=== PATIENT | female | born 1950 | race Caucasian/White ===

== ENCOUNTER 2017-12-24 16:05 | Inpatient (IN) ==
[2017-12-24] MEDS ORDERED: Sod Chloride 0.9% Inj 1,000 ML IV.SIG ONE (16:21)
--- NOTE | 2017-12-24 16:32 | ED ---
HPI General Chief complaint: Nausea/Vomiting/Diarrhea Stated complaint: dehydrated Time Seen by Provider: 12/24/17 16:12 History of Present Illness HPI narrative: This is a 67-year-old female who presents for evaluation of weakness, nausea, diarrhea, abdominal pain. Symptoms started 6 days ago. She reports that she has had approximately 10 loose watery nonbloody stools on a daily basis. She reports generalized mild abdominal soreness as well as nausea as well. Her symptoms persisted. She discussed with her primary care physician today who referred her to the emergency room. Symptoms are moderate. She denies any recent travel, new medications, change in diet, recent antibiotic use, fevers, chills, vomiting, dysuria, flank pain. No history of abdominal surgery in the past. No sick contacts. No other complaints at this time. Related Data Home Medications Medication Instructions Recorded Confirmed No Known Home Medications 12/24/17 12/24/17 Allergies Allergy/AdvReac Type Severity Reaction Status Date / Time morphine Allergy Intermediate Rash Verified 12/24/17 16:31 Review of Systems ROS: all other systems reviewed are negative [facility] Medical History Medical History Alopecia (Acute) Lupus (Acute) Social History Social History Substance History: No History of Abuse Second Hand Smoke Exposure: No Smoking Status: Never smoker How Often Do You Have a Drink Containing Alcohol: Never Recent Travel in [facility] within the Last 8 Weeks: No Recent Out of Country Travel within the Last 8 Weeks: No Exam Narrative Exam Narrative: GENERAL: This is a thin female who is in no acute distress. SKIN: Warm and dry. Facial erythema in the malar distribution noted. Alopecia noted. HEAD: Atraumatic. Normocephalic. EYES: Pupils equal and round. No scleral icterus. No injection or drainage. ENT: No nasal bleeding or discharge. Mucous membranes pink and moist. NECK: Trachea midline. No JVD. CARDIOVASCULAR: Regular rate and rhythm. No murmur appreciated. RESPIRATORY: No accessory muscle use. Clear to auscultation. Breath sounds equal bilaterally. GASTROINTESTINAL: Abdomen soft, mild generalized tenderness to palpation without guarding, no distention. MUSCULOSKELETAL: No obvious deformities. No clubbing. No cyanosis. No edema. NEUROLOGICAL: Awake and alert. No obvious cranial nerve deficits. Motor grossly within normal limits. Normal speech. Course Initial Documented Vital Signs Temperature 98.7 F 12/24/17 16:09 Pulse Rate 79 12/24/17 16:09 Respiratory Rate 16 12/24/17 16:09 Blood Pressure 193/90 H 12/24/17 16:09 Pulse Oximetry 99 12/24/17 16:09 Last Documented Vital Signs Temperature 98.7 F 12/24/17 16:09 Pulse Rate 78 12/24/17 21:02 Respiratory Rate 16 12/24/17 21:02 Blood Pressure 149/77 H 12/24/17 21:02 Pulse Oximetry 98 12/24/17 18:04 Medical Decision Making MDM Narrative Medical decision making narrative: The patient was placed on ECG monitoring pulse oximetry. Lab work, CT abdomen pelvis ordered. The patient was given 1 L normal saline and IV Zofran. Lab work is been reviewed. The patient has a critical sodium value of 113 and a calcium of 7.4. Additional 1L normal saline ordered. 2 g of calcium has been ordered. An EKG was obtained revealing sinus rhythm with first-degree AV block. At this point in time the plan is to admit the patient to the prompt care rn for further evaluation and treatment. Medical Screen Exam Complete: Yes Emergency Medical Condition: Yes Differential Diagnosis Differential Diagnosis: Dehydration, electrolyte abnormality, gastroenteritis, colitis, diverticulitis Lab Data Result diagrams: 12/24/17 19:25 12/24/17 19:25 Lab Results 12/24/17 12/24/17 12/24/17 Range/Units 16:31 16:31 17:57 WBC 2.7 L (4.0-11.0) th/mm3 RBC 3.39 L (4.00-5.30) mil/mm3 Hgb 11.1 L (11.6-15.3) gm/dL Hct 31.4 L (35.0-46.0) % MCV 92.8 (80.0-100.0) fL MCH 32.8 (27.0-34.0) pg MCHC 35.4 (32.0-36.0) % RDW 12.0 (11.6-17.2) % Plt Count 108 L (150-450) th/mm3 MPV 8.9 (7.0-11.0) fL Neut % (Auto) 80.1 H (16.0-70.0) % Lymph % (Auto) 7.0 L (9.0-44.0) % [place] % (Auto) 11.7 H (0.0-8.0) % Eos % (Auto) 0.0 (0.0-4.0) % Baso % (Auto) 1.2 (0.0-2.0) % Neut # (Auto) 2.1 (1.8-7.7) th/mm3 Lymph # (Auto) 0.2 L (1.0-4.8) th/mm3 [place] # (Auto) 0.3 (0.0-0.9) th/mm3 Eos # (Auto) 0.0 (0.0-0.4) th/mm3 Baso # (Auto) 0.0 (0.0-0.2) th/mm3 WBC Differential . Differential Comment Auto diff final Sodium 113 L* (136-145) meq/L Potassium 4.1 (3.5-5.1) meq/L Chloride 77 L (98-107) meq/L Carbon Dioxide 26.2 (21.0-32.0) meq/L Anion Gap 10 (5-15) meq/L BUN 10 (7-18) mg/dL Creatinine 0.65 (0.50-1.00) mg/dL Estimated GFR Greater than 89 (>89) mL/min Random Glucose 138 H (74-106) mg/dL Osmolality (275-295) mosm/kg Uric Acid (2.6-6.0) mg/dl Calcium 7.1 L* (8.5-10.1) mg/dL Prot Corrected Calcium 7.4 L* (8.5-10.1) mg/dL Magnesium 1.8 (1.5-2.5) mg/dL Total Bilirubin 0.4 (0.2-1.0) mg/dL AST 58 H (15-37) U/L ALT 33 (10-53) U/L Alkaline Phosphatase 55 (45-117) U/L Total Creatine Kinase (26-192) U/L CK-MB (CK-2) (0.5-3.6) ng/mL CK-MB (CK-2) % (0.0-4.0) % Troponin I (0.02-0.05) ng/mL C-Reactive Protein (0.00-0.30) mg/dL B-Natriuretic Peptide (0-100) pg/mL Total Protein 6.6 (6.4-8.2) g/dL Albumin 2.6 L (3.4-5.0) g/dL Lipase 154 (73-393) U/L TSH (0.358-3.740) uIU/mL Cortisol mcg/dL Urine Color Yellow (Yellw/Straw) Urine Clarity Hazy H (Clear) Urine pH 6.0 (5.0-8.5) Ur Specific [place] 1.019 (1.002-1.035) Urine Protein 500 or greater (Neg-Trace) mg/dL Urine Glucose (UA) 50 (Negative) mg/dL Urine Ketones 20 (Negative) mg/dL Urine Occult Blood Negative (Negative) Urine Nitrate Negative (Negative) Urine Bilirubin Negative (Negative) Urine Urobilinogen Less than 2 (Less than 2) mg/dL Ur Leukocyte Esterase Negative (Negative) Urine RBC 10 H (0-3) /hpf Urine WBC 7 H (0-5) /hpf Ur Squamous Epith Cells 1 (0-5) /hpf Amorphous Sediment Few H (None) /hpf Urine Bacteria Occasional H (None) /hpf Hyaline Casts 38 (0-3) /lpf Urine Mucus Few H (Occasional) /lpf Micro UA Comment Culture not ind Ur Microscopic Review Not Reportable Urine Culture Comments Culture not ind Urine Osmolality (300-1300) mosm/kg Ur Random Creatinine (27-300) mg/dL Ur Random Sodium meq/L Ur Random Chloride meq/L Complement C3 (90-180) mg/dL Complement C4 (10-40) mg/dL 12/24/17 12/24/17 12/24/17 Range/Units 17:57 17:57 17:57 WBC (4.0-11.0) th/mm3 RBC (4.00-5.30) mil/mm3 Hgb (11.6-15.3) gm/dL Hct (35.0-46.0) % MCV (80.0-100.0) fL MCH (27.0-34.0) pg MCHC (32.0-36.0) % RDW (11.6-17.2) % Plt Count (150-450) th/mm3 MPV (7.0-11.0) fL Neut % (Auto) (16.0-70.0) % Lymph % (Auto) (9.0-44.0) % [place] % (Auto) (0.0-8.0) % Eos % (Auto) (0.0-4.0) % Baso % (Auto) (0.0-2.0) % Neut # (Auto) (1.8-7.7) th/mm3 Lymph # (Auto) (1.0-4.8) th/mm3 [place] # (Auto) (0.0-0.9) th/mm3 Eos # (Auto) (0.0-0.4) th/mm3 Baso # (Auto) (0.0-0.2) th/mm3 WBC Differential Differential Comment Sodium (136-145) meq/L Potassium (3.5-5.1) meq/L Chloride (98-107) meq/L Carbon Dioxide (21.0-32.0) meq/L Anion Gap (5-15) meq/L BUN (7-18) mg/dL Creatinine (0.50-1.00) mg/dL Estimated GFR (>89) mL/min Random Glucose (74-106) mg/dL Osmolality (275-295) mosm/kg Uric Acid (2.6-6.0) mg/dl Calcium (8.5-10.1) mg/dL Prot Corrected Calcium (8.5-10.1) mg/dL Magnesium (1.5-2.5) mg/dL Total Bilirubin (0.2-1.0) mg/dL AST (15-37) U/L ALT (10-53) U/L Alkaline Phosphatase (45-117) U/L Total Creatine Kinase (26-192) U/L CK-MB (CK-2) (0.5-3.6) ng/mL CK-MB (CK-2) % (0.0-4.0) % Troponin I (0.02-0.05) ng/mL C-Reactive Protein (0.00-0.30) mg/dL B-Natriuretic Peptide (0-100) pg/mL Total Protein (6.4-8.2) g/dL Albumin (3.4-5.0) g/dL Lipase (73-393) U/L TSH (0.358-3.740) uIU/mL Cortisol mcg/dL Urine Color (Yellw/Straw) Urine Clarity (Clear) Urine pH (5.0-8.5) Ur Specific [place] (1.002-1.035) Urine Protein (Neg-Trace) mg/dL Urine Glucose (UA) (Negative) mg/dL Urine Ketones (Negative) mg/dL Urine Occult Blood (Negative) Urine Nitrate (Negative) Urine Bilirubin (Negative) Urine Urobilinogen (Less than 2) mg/dL Ur Leukocyte Esterase (Negative) Urine RBC (0-3) /hpf Urine WBC (0-5) /hpf Ur Squamous Epith Cells (0-5) /hpf Amorphous Sediment (None) /hpf Urine Bacteria (None) /hpf Hyaline Casts (0-3) /lpf Urine Mucus (Occasional) /lpf Micro UA Comment Ur Microscopic Review Urine Culture Comments Urine Osmolality 441 (300-1300) mosm/kg Ur Random Creatinine 89 Cancelled (27-300) mg/dL Ur Random Sodium 33 Cancelled meq/L Ur Random Chloride 50 meq/L Complement C3 (90-180) mg/dL Complement C4 (10-40) mg/dL 12/24/17 12/24/17 12/24/17 Range/Units 17:57 19:25 19:25 WBC (4.0-11.0) th/mm3 RBC (4.00-5.30) mil/mm3 Hgb (11.6-15.3) gm/dL Hct (35.0-46.0) % MCV (80.0-100.0) fL MCH (27.0-34.0) pg MCHC (32.0-36.0) % RDW (11.6-17.2) % Plt Count (150-450) th/mm3 MPV (7.0-11.0) fL Neut % (Auto) (16.0-70.0) % Lymph % (Auto) (9.0-44.0) % [place] % (Auto) (0.0-8.0) % Eos % (Auto) (0.0-4.0) % Baso % (Auto) (0.0-2.0) % Neut # (Auto) (1.8-7.7) th/mm3 Lymph # (Auto) (1.0-4.8) th/mm3 [place] # (Auto) (0.0-0.9) th/mm3 Eos # (Auto) (0.0-0.4) th/mm3 Baso # (Auto) (0.0-0.2) th/mm3 WBC Differential Differential Comment Sodium (136-145) meq/L Potassium (3.5-5.1) meq/L Chloride (98-107) meq/L Carbon Dioxide (21.0-32.0) meq/L Anion Gap (5-15) meq/L BUN (7-18) mg/dL Creatinine (0.50-1.00) mg/dL Estimated GFR (>89) mL/min Random Glucose (74-106) mg/dL Osmolality 239 L (275-295) mosm/kg Uric Acid (2.6-6.0) mg/dl Calcium (8.5-10.1) mg/dL Prot Corrected Calcium (8.5-10.1) mg/dL Magnesium (1.5-2.5) mg/dL Total Bilirubin (0.2-1.0) mg/dL AST (15-37) U/L ALT (10-53) U/L Alkaline Phosphatase (45-117) U/L Total Creatine Kinase (26-192) U/L CK-MB (CK-2) (0.5-3.6) ng/mL CK-MB (CK-2) % (0.0-4.0) % Troponin I (0.02-0.05) ng/mL C-Reactive Protein (0.00-0.30) mg/dL B-Natriuretic Peptide (0-100) pg/mL Total Protein (6.4-8.2) g/dL Albumin (3.4-5.0) g/dL Lipase (73-393) U/L TSH (0.358-3.740) uIU/mL Cortisol 23.5 mcg/dL Urine Color (Yellw/Straw) Urine Clarity (Clear) Urine pH (5.0-8.5) Ur Specific [place] (1.002-1.035) Urine Protein (Neg-Trace) mg/dL Urine Glucose (UA) (Negative) mg/dL Urine Ketones (Negative) mg/dL Urine Occult Blood (Negative) Urine Nitrate (Negative) Urine Bilirubin (Negative) Urine Urobilinogen (Less than 2) mg/dL Ur Leukocyte Esterase (Negative) Urine RBC (0-3) /hpf Urine WBC (0-5) /hpf Ur Squamous Epith Cells (0-5) /hpf Amorphous Sediment (None) /hpf Urine Bacteria (None) /hpf Hyaline Casts (0-3) /lpf Urine Mucus (Occasional) /lpf Micro UA Comment Ur Microscopic Review Urine Culture Comments Urine Osmolality Cancelled (300-1300) mosm/kg Ur Random Creatinine (27-300) mg/dL Ur Random Sodium meq/L Ur Random Chloride meq/L Complement C3 (90-180) mg/dL Complement C4 (10-40) mg/dL 12/24/17 12/24/17 12/24/17 Range/Units 19:25 19:25 19:25 WBC 2.3 L (4.0-11.0) th/mm3 RBC 3.03 L (4.00-5.30) mil/mm3 Hgb 10.0 L (11.6-15.3) gm/dL Hct 27.5 L (35.0-46.0) % MCV 90.8 (80.0-100.0) fL MCH 32.8 (27.0-34.0) pg MCHC 36.2 H (32.0-36.0) % RDW 11.8 (11.6-17.2) % Plt Count 94 L (150-450) th/mm3 MPV 9.1 (7.0-11.0) fL Neut % (Auto) (16.0-70.0) % Lymph % (Auto) (9.0-44.0) % [place] % (Auto) (0.0-8.0) % Eos % (Auto) (0.0-4.0) % Baso % (Auto) (0.0-2.0) % Neut # (Auto) (1.8-7.7) th/mm3 Lymph # (Auto) (1.0-4.8) th/mm3 [place] # (Auto) (0.0-0.9) th/mm3 Eos # (Auto) (0.0-0.4) th/mm3 Baso # (Auto) (0.0-0.2) th/mm3 WBC Differential Differential Comment Sodium 116 L* (136-145) meq/L Potassium 3.7 (3.5-5.1) meq/L Chloride 83 L (98-107) meq/L Carbon Dioxide 21.7 (21.0-32.0) meq/L Anion Gap 11 (5-15) meq/L BUN 10 (7-18) mg/dL Creatinine 0.57 (0.50-1.00) mg/dL Estimated GFR Greater than 89 (>89) mL/min Random Glucose 115 H (74-106) mg/dL Osmolality (275-295) mosm/kg Uric Acid 1.6 L (2.6-6.0) mg/dl Calcium 6.7 L* (8.5-10.1) mg/dL Prot Corrected Calcium 7.4 L* (8.5-10.1) mg/dL Magnesium (1.5-2.5) mg/dL Total Bilirubin (0.2-1.0) mg/dL AST (15-37) U/L ALT (10-53) U/L Alkaline Phosphatase (45-117) U/L Total Creatine Kinase (26-192) U/L CK-MB (CK-2) (0.5-3.6) ng/mL CK-MB (CK-2) % (0.0-4.0) % Troponin I (0.02-0.05) ng/mL C-Reactive Protein (0.00-0.30) mg/dL B-Natriuretic Peptide 640 H (0-100) pg/mL Total Protein 5.6 L D (6.4-8.2) g/dL Albumin (3.4-5.0) g/dL Lipase (73-393) U/L TSH (0.358-3.740) uIU/mL Cortisol mcg/dL Urine Color (Yellw/Straw) Urine Clarity (Clear) Urine pH (5.0-8.5) Ur Specific [place] (1.002-1.035) Urine Protein (Neg-Trace) mg/dL Urine Glucose (UA) (Negative) mg/dL Urine Ketones (Negative) mg/dL Urine Occult Blood (Negative) Urine Nitrate (Negative) Urine Bilirubin (Negative) Urine Urobilinogen (Less than 2) mg/dL Ur Leukocyte Esterase (Negative) Urine RBC (0-3) /hpf Urine WBC (0-5) /hpf Ur Squamous Epith Cells (0-5) /hpf Amorphous Sediment (None) /hpf Urine Bacteria (None) /hpf Hyaline Casts (0-3) /lpf Urine Mucus (Occasional) /lpf Micro UA Comment Ur Microscopic Review Urine Culture Comments Urine Osmolality (300-1300) mosm/kg Ur Random Creatinine (27-300) mg/dL Ur Random Sodium meq/L Ur Random Chloride meq/L Complement C3 (90-180) mg/dL Complement C4 (10-40) mg/dL 12/24/17 12/24/17 12/24/17 Range/Units 19:25 19:25 19:25 WBC (4.0-11.0) th/mm3 RBC (4.00-5.30) mil/mm3 Hgb (11.6-15.3) gm/dL Hct (35.0-46.0) % MCV (80.0-100.0) fL MCH (27.0-34.0) pg MCHC (32.0-36.0) % RDW (11.6-17.2) % Plt Count (150-450) th/mm3 MPV (7.0-11.0) fL Neut % (Auto) (16.0-70.0) % Lymph % (Auto) (9.0-44.0) % [place] % (Auto) (0.0-8.0) % Eos % (Auto) (0.0-4.0) % Baso % (Auto) (0.0-2.0) % Neut # (Auto) (1.8-7.7) th/mm3 Lymph # (Auto) (1.0-4.8) th/mm3 [place] # (Auto) (0.0-0.9) th/mm3 Eos # (Auto) (0.0-0.4) th/mm3 Baso # (Auto) (0.0-0.2) th/mm3 WBC Differential Differential Comment Sodium (136-145) meq/L Potassium (3.5-5.1) meq/L Chloride (98-107) meq/L Carbon Dioxide (21.0-32.0) meq/L Anion Gap (5-15) meq/L BUN (7-18) mg/dL Creatinine (0.50-1.00) mg/dL Estimated GFR (>89) mL/min Random Glucose (74-106) mg/dL Osmolality (275-295) mosm/kg Uric Acid Cancelled (2.6-6.0) mg/dl Calcium (8.5-10.1) mg/dL Prot Corrected Calcium (8.5-10.1) mg/dL Magnesium (1.5-2.5) mg/dL Total Bilirubin (0.2-1.0) mg/dL AST (15-37) U/L ALT (10-53) U/L Alkaline Phosphatase (45-117) U/L Total Creatine Kinase 211 H (26-192) U/L CK-MB (CK-2) 6.4 H (0.5-3.6) ng/mL CK-MB (CK-2) % 3.0 (0.0-4.0) % Troponin I 2.22 H* (0.02-0.05) ng/mL C-Reactive Protein (0.00-0.30) mg/dL B-Natriuretic Peptide (0-100) pg/mL Total Protein (6.4-8.2) g/dL Albumin (3.4-5.0) g/dL Lipase (73-393) U/L TSH 2.450 (0.358-3.740) uIU/mL Cortisol mcg/dL Urine Color (Yellw/Straw) Urine Clarity (Clear) Urine pH (5.0-8.5) Ur Specific [place] (1.002-1.035) Urine Protein (Neg-Trace) mg/dL Urine Glucose (UA) (Negative) mg/dL Urine Ketones (Negative) mg/dL Urine Occult Blood (Negative) Urine Nitrate (Negative) Urine Bilirubin (Negative) Urine Urobilinogen (Less than 2) mg/dL Ur Leukocyte Esterase (Negative) Urine RBC (0-3) /hpf Urine WBC (0-5) /hpf Ur Squamous Epith Cells (0-5) /hpf Amorphous Sediment (None) /hpf Urine Bacteria (None) /hpf Hyaline Casts (0-3) /lpf Urine Mucus (Occasional) /lpf Micro UA Comment Ur Microscopic Review Urine Culture Comments Urine Osmolality (300-1300) mosm/kg Ur Random Creatinine (27-300) mg/dL Ur Random Sodium meq/L Ur Random Chloride meq/L Complement C3 (90-180) mg/dL Complement C4 (10-40) mg/dL 12/24/17 12/24/17 12/24/17 Range/Units 19:25 19:25 19:25 WBC (4.0-11.0) th/mm3 RBC (4.00-5.30) mil/mm3 Hgb (11.6-15.3) gm/dL Hct (35.0-46.0) % MCV (80.0-100.0) fL MCH (27.0-34.0) pg MCHC (32.0-36.0) % RDW (11.6-17.2) % Plt Count (150-450) th/mm3 MPV (7.0-11.0) fL Neut % (Auto) (16.0-70.0) % Lymph % (Auto) (9.0-44.0) % [place] % (Auto) (0.0-8.0) % Eos % (Auto) (0.0-4.0) % Baso % (Auto) (0.0-2.0) % Neut # (Auto) (1.8-7.7) th/mm3 Lymph # (Auto) (1.0-4.8) th/mm3 [place] # (Auto) (0.0-0.9) th/mm3 Eos # (Auto) (0.0-0.4) th/mm3 Baso # (Auto) (0.0-0.2) th/mm3 WBC Differential Differential Comment Sodium (136-145) meq/L Potassium (3.5-5.1) meq/L Chloride (98-107) meq/L Carbon Dioxide (21.0-32.0) meq/L Anion Gap (5-15) meq/L BUN (7-18) mg/dL Creatinine (0.50-1.00) mg/dL Estimated GFR (>89) mL/min Random Glucose (74-106) mg/dL Osmolality (275-295) mosm/kg Uric Acid (2.6-6.0) mg/dl Calcium (8.5-10.1) mg/dL Prot Corrected Calcium (8.5-10.1) mg/dL Magnesium (1.5-2.5) mg/dL Total Bilirubin (0.2-1.0) mg/dL AST (15-37) U/L ALT (10-53) U/L Alkaline Phosphatase (45-117) U/L Total Creatine Kinase (26-192) U/L CK-MB (CK-2) (0.5-3.6) ng/mL CK-MB (CK-2) % (0.0-4.0) % Troponin I (0.02-0.05) ng/mL C-Reactive Protein Less than 0.29 (0.00-0.30) mg/dL B-Natriuretic Peptide (0-100) pg/mL Total Protein (6.4-8.2) g/dL Albumin (3.4-5.0) g/dL Lipase (73-393) U/L TSH (0.358-3.740) uIU/mL Cortisol mcg/dL Urine Color (Yellw/Straw) Urine Clarity (Clear) Urine pH (5.0-8.5) Ur Specific [place] (1.002-1.035) Urine Protein (Neg-Trace) mg/dL Urine Glucose (UA) (Negative) mg/dL Urine Ketones (Negative) mg/dL Urine Occult Blood (Negative) Urine Nitrate (Negative) Urine Bilirubin (Negative) Urine Urobilinogen (Less than 2) mg/dL Ur Leukocyte Esterase (Negative) Urine RBC (0-3) /hpf Urine WBC (0-5) /hpf Ur Squamous Epith Cells (0-5) /hpf Amorphous Sediment (None) /hpf Urine Bacteria (None) /hpf Hyaline Casts (0-3) /lpf Urine Mucus (Occasional) /lpf Micro UA Comment Ur Microscopic Review Urine Culture Comments Urine Osmolality (300-1300) mosm/kg Ur Random Creatinine (27-300) mg/dL Ur Random Sodium meq/L Ur Random Chloride meq/L Complement C3 18 L (90-180) mg/dL Complement C4 3 L (10-40) mg/dL Imaging Data Radiologist's impression: Abdomen/Pelvis CT 12/24/17 16:21 CONCLUSION: 1. Nonspecific edema and small ascites. Nothing organized or drainable. Similar findings were seen previously. 2. No focal inflammatory changes are demonstrated. No obstruction. 3. Mild thickening of the interlobular septa of both lung bases suggesting mild pulmonary edema. Heart is enlarged. No pleural effusion. Previously seen pericardial effusion is no longer present. Chest X-Ray 12/24/17 20:53 CONCLUSION: No acute cardiopulmonary disease demonstrated. Discharge Plan Discharge Disposition Patient Disposition: 30 Still Patient Discharge Condition Condition: Stable Discharge Details Diagnosis: Hyponatremia, Hypocalcemia, Diarrhea Physicians Team ED Provider: Joao Rey ED Midlevel Provider: Bhupinder Perez Primary Care Provider: Smita Gaviria Attending Provider: Mackenzie Underwood Other Providers: oMira White Discharge Interventions Interventions: ED Discharge Assessment Last Done: 12/24/17 21:33 Vital Signs Last Done: 12/24/17 18:04 Status ED Status: Left Department Discharge Information Discharge Date/Time: 12/24/17 21:36
[2017-12-24 16:48] LABS: Baso % (Auto) 1.2 % (0.0-2.0); Hematocrit 31.4 % (35.0-46.0); Hemoglobin 11.1 gm/dL (11.6-15.3); Lymph # (Auto) 0.2 th/mm3 (1.0-4.8); Mean Corpuscular HGB Conc 35.4 % (32.0-36.0); Mean Corpuscular Hemoglobin 32.8 pg (27.0-34.0); Mean Corpuscular Volume 92.8 fL (80.0-100.0); Mean Platelet Volume 8.9 fL (7.0-11.0); Mono # (Auto) 0.3 th/mm3 (0.0-0.9); Mono % (Auto) 11.7 % (0.0-8.0); Neut # (Auto) 2.1 th/mm3 (1.8-7.7); Neut % (Auto) 80.1 % (16.0-70.0); Platelet Count 108 th/mm3 (150-450); Red Blood Count 3.39 mil/mm3 (4.00-5.30); White Blood Count 2.7 th/mm3 (4.0-11.0)
[2017-12-24 17:34] LABS: Alanine Aminotransferase 33 U/L (10-53); Albumin 2.6 g/dL (3.4-5.0); Alkaline Phosphatase 55 U/L (45-117); Anion Gap 10 meq/L (5-15); Aspartate Aminotransferase 58 U/L (15-37); Blood Urea Nitrogen 10 mg/dL (7-18); Calcium 7.1 mg/dL (8.5-10.1); Carbon Dioxide 26.2 meq/L (21.0-32.0); Chloride 77 meq/L (98-107); Glomerular Filtration Rate Greater Than 89 mL/min (>89); Glucose,Random 138 mg/dL (74-106); Lipase 154 U/L (73-393); Magnesium 1.8 mg/dL (1.5-2.5); Potassium 4.1 meq/L (3.5-5.1); Total Protein 6.6 g/dL (6.4-8.2)
[2017-12-24 17:39] LABS: Sodium 113 meq/L (136-145)
[2017-12-24] MEDS ORDERED: Calcium Gluconate Inj 1 GM in Dextrose 5% in Water Inj 100 ML IV.SIG ONE ×2 (17:41)
[2017-12-24] MEDS ORDERED: Calcium Gluconate Inj 2 GM in Sodium Chlor 0.9% Inj 100 ML IV.SIG ONE (17:58)
[2017-12-24] MEDS ORDERED: Sod Chloride 0.9% Inj 1,000 ML IV.SIG SCH (18:00)
[2017-12-24] MEDS ORDERED: Sodium Chlor 0.9% Inj 500 ML IV.SIG SCH (18:00)
[2017-12-24 18:24] LABS: Amorphous Sediment,Urine Few /hpf; Bacteria,Urine Occasional /hpf; Bilirubin,Urine Negative (Negative); Clarity,Urine Hazy (Clear); Color,Urine Yellow (Yellw/Straw); Glucose,Urine (UA) 50 mg/dL (Negative); Hyaline Casts,Urine 38 /lpf (0-3); Leukocyte Esterase,Urine Negative (Negative); Mucus,Urine Few /lpf (Occasional); Nitrite,Urine Negative (Negative); Specific Gravity,Urine 1.019 (1.002-1.035); Squamous Epithelial Cell,Urine 1 /hpf (0-5)
--- NOTE | 2017-12-24 19:00 | CT ---
EXAM DATE: 12/24/2017 6:34 PM EDT AGE/SEX: 67 years / Female INDICATIONS: Diarrhea. CLINICAL DATA: This is the patient's initial encounter. Patient reports that signs and symptoms have been present for 1 week and indicates a pain score of 0/10. MEDICAL/SURGICAL HISTORY: None. None. ORAL CONTRAST: No oral contrast ingested. RADIATION DOSE: 4.89 CTDI (mGy) COMPARISON: [facility] [place] ABDOMEN & PELVIS W CONTRAST, 07/11/2015. . TECHNIQUE: Multiple contiguous axial images were obtained through the abdomen and pelvis following b olus infusion of 70 ml Omnipaque 350 (iohexol) nonionic water-soluble contrast as a single exam dos e. No oral contrast ingested. Using automated exposure control and adjustment of the mA and/or kV ac cording to patient size, radiation dose was kept as low as reasonably achievable to obtain optimal di agnostic quality images. DICOM format image data is available electronically for review and comparis on. FINDINGS: There is mesenteric edema and small ascites/free fluid, nonspecific but similar findings we re seen back in 2016. The liver, spleen, pancreas, adrenal glands and kidneys show no acute abnormali ty. A few scattered small hypodensities of the liver are stable. No obstruction or perceptible acute inflammatory changes are seen of the gastrointestinal tract. No loculated fluid. No free air. No lymp hadenopathy. There is thickening of the interlobular septa of the visualized lung bases. The heart is enlarged. Pr eviously seen pericardial effusion has resolved. Tortuous and atherosclerotic aorta. No aneurysm. CONCLUSION: 1. Nonspecific edema and small ascites. Nothing organized or drainable. Similar findings were seen p reviously. 2. No focal inflammatory changes are demonstrated. No obstruction. 3. Mild thickening of the interlobular septa of both lung bases suggesting mild pulmonary edema. Hea rt is enlarged. No pleural effusion. Previously seen pericardial effusion is no longer present. Electronically signed by: Josh Pringle MD 12/24/2017 6:59 PM EDT
[2017-12-24 19:45] LABS: Hematocrit 27.5 % (35.0-46.0); Mean Corpuscular Hemoglobin 32.8 pg (27.0-34.0); Mean Corpuscular Volume 90.8 fL (80.0-100.0); Mean Platelet Volume 9.1 fL (7.0-11.0); Platelet Count 94 th/mm3 (150-450); Red Blood Count 3.03 mil/mm3 (4.00-5.30); Red Cell Distribution Width 11.8 % (11.6-17.2); White Blood Count 2.3 th/mm3 (4.0-11.0)
[2017-12-24 19:48] LABS: Mean Corpuscular HGB Conc 36.2 % (32.0-36.0)
[2017-12-24 19:58] LABS: Chloride,Urine Random 50 meq/L; Creatinine,Urine Random 89 mg/dL (27-300)
--- NOTE | 2017-12-24 20:22 | P.HPCC ---
History of Present Illness Service: Critical care medicine Primary Care Physician: Smita Gaviria DO Chief Complaint: Diarrhea, fatigue History of Present Illness: 67-year-old female with a past medical history of systemic lupus erythematosus who is not on any related medications. She states she was diagnosed in 2018 and is followed by Dr[address] Gaviria and Dr. Lu. She states that about 2 weeks ago she developed sore throat, nausea, anorexia, lethargy, and myalgias. She had vomiting NBNB earlier this week. Over the last 2 weeks she has had numerous diarrhea stools, liquid brown up to ten times per day, worse over the last 10 days. She has abdominal discomfort.. She has had chills, hasn' t checked her temperature. Today she had some cough productive of yellow/white sputum. No recent hospitalizations or antibiotic exposure. No travel, camping, drinking non-potable water. Her workup revealed sodium of 113,normal creatinine , pancytopenia. Denies h/o hyponatremia or cytopenias. She states she had routine lab work in october that was completely normal. Denies CP, SOB, FRIED. She received 2 L NS bolus in the ED as she reportedly looked very dry on arrival. She says malar rash has been present several months, denies joint pain or swelling. - Diagnosis (1) Hyponatremia (2) Elevated troponin (3) Proteinuria (4) Pancytopenia Inpatient Certification: I certify that the inpatient services were ordered in accordance with Medicare regulations governing the order. This includes certification that hospital inpatient services are reasonable and necessary and in the case of services not specified as inpatient-only under 42 CFR 419.22(n), that they are appropriately provided as inpatient services in accordance to with the 2-midnight benchmark under 43 CFR 412.3(e) Review of Systems All other systems reviewed negative except as stated in HPI PMFSH - History History Provided By: Patient - Medical History Medical History: Medical History (Last Updated 12/24/17 @ 16:47 by Erlinda Lan) Alopecia Lupus - Surgical History Surgical History: Surgical History (Last Updated 12/25/17 @ 09:49 by Mackenzie Underwood MD) No history of previous surgery - Family History Family History: Family History (Last Updated 12/25/17 @ 09:49 by Mackenzie Underwood MD) Other No significant family history - Tobacco History Smoking Status: Never smoker - Alcohol History How Often Do You Have a Drink Containing Alcohol: Never - Substance Use History Substance History: No History of Abuse - Travel History Recent Travel in the [place] Within the Last 8 Weeks: No Recent Travel Out of the Country Within the Last 8 Weeks: No - Immunization History Tetanus Immunization: >5 Years Medications and Allergies Active Medications: Active Medications Ondansetron HCl (Zofran Inj) 4 mg IV.PUSH Q6H PRN PRN Reason: nausea Last Admin: 12/24/17 20:06 Dose: 4 mg Promethazine HCl (Phenergan Inj) 25 mg IM Q6H PRN PRN Reason: breakthrough nausea Sodium Chloride (Ns Flush) 2 ml IV.FLUSH PRN PRN PRN Reason: FLUSH AFTER USING IV ACCESS Allergies Allergy/AdvReac Type Severity Reaction Status Date / Time morphine Allergy Intermediate Rash Verified 12/24/17 16:31 Home Medications Medication Instructions Recorded Confirmed Type No Known Home Medications 12/24/17 12/24/17 History Results - Labs CBC & Chem 7: 12/27/17 05:26 12/27/17 23:27 Labs: Short CBC 12/24/17 12/24/17 Range/Units 16:31 19:25 WBC 2.7 L 2.3 L (4.0-11.0) th/mm3 Hgb 11.1 L 10.0 L (11.6-15.3) gm/dL Hct 31.4 L 27.5 L (35.0-46.0) % Plt Count 108 L 94 L (150-450) th/mm3 BMP 12/24/17 16:31 Sodium 113 L* Potassium 4.1 Chloride 77 L Carbon Dioxide 26.2 BUN 10 Creatinine 0.65 Calcium 7.1 L* Liver Function 12/24/17 Range/Units 16:31 Total Bilirubin 0.4 (0.2-1.0) mg/dL AST 58 H (15-37) U/L ALT 33 (10-53) U/L Alkaline Phosphatase 55 (45-117) U/L Albumin 2.6 L (3.4-5.0) g/dL Urine 12/24/17 Range/Units 17:57 Urine Color Yellow (Yellw/Straw) Urine Clarity Hazy H (Clear) Urine pH 6.0 (5.0-8.5) Ur Specific [place] 1.019 (1.002-1.035) Urine Protein 500 or greater (Neg-Trace) mg/dL Urine Glucose (UA) 50 (Negative) mg/dL - Imaging Impressions Abdomen/Pelvis CT 12/24/17 16:21 CONCLUSION: 1. Nonspecific edema and small ascites. Nothing organized or drainable. Similar findings were seen previously. 2. No focal inflammatory changes are demonstrated. No obstruction. 3. Mild thickening of the interlobular septa of both lung bases suggesting mild pulmonary edema. Heart is enlarged. No pleural effusion. Previously seen pericardial effusion is no longer present. Exam Vital signs: Vital Signs 12/24/17 16:09 12/24/17 16:50 12/24/17 18:04 Temperature 98.7 F Pulse Rate 79 78 79 Respiratory Rate 16 17 17 Blood Pressure 193/90 H 177/82 H 153/70 H Pulse Oximetry 99 98 98 Intake & Output 12/24/17 12/24/17 12/25/17 06:59 18:59 05:59 Intake Total 1000 / 1000 1120 / 1120 Balance 1000 / 1000 1120 / 1120 Weight 49.895 kg Intake: IV 1000 / 1000 1120 / 1120 Calcium Gluconate Inj 2 GM In 120 / 120 NS Inj 100 ML @ 120 mls/hr IV. SIG ONCE ONE Rx#:[id number] NS Inj 1,000 ML @ 1000 mls/hr 1000 / 1000 1000 / 1000 IV.SIG BOLUS JONAS Rx#:[id number] Narrative: GENERAL: Thin, well-developed patient laying in ED bed. SKIN: Warm and dry. Malar rash on cheeks. HEAD: Atraumatic. Normocephalic. EYES: Pupils equal and round. No scleral icterus. No injection or drainage. ENT: No nasal bleeding or discharge. Mucous membranes moist, mild pharyngeal edema. NECK: Trachea midline. Jugular vein flat. No meningismus. CARDIOVASCULAR: Regular rate and rhythm. No murmurs rubs or gallops. RESPIRATORY: No accessory muscle use. Clear to auscultation. Breath sounds equal bilaterally. On Ra. GASTROINTESTINAL: Abdomen soft, tender to palpation LUQ, right mid abdomen, no rebound or guarding. Bowel sounds present. MUSCULOSKELETAL: Extremities without clubbing, cyanosis, or edema. No obvious deformities. NEUROLOGICAL: Awake and alert. No obvious cranial nerve deficits. Motor grossly within normal limits. Normal speech. Caprini VTE Risk Assessment Caprini VTE Risk Assessment: Moderate/High Risk (score >= 2) Caprini Risk Assessment Model: Point Value = 1 Point Value = 2 Point Value = 3 Point Value = 5 Age 41-60 Minor surgery BMI > 25 kg/m2 Swollen legs Varicose veins or History of unexplained or recurrent spontaneous Oral contraceptives or hormone replacement Sepsis (< 1 month) Serious lung disease, including pneumonia (< 1 month) Abnormal pulmonary function Acute myocardial infarction Congestive heart failure (< 1 month) History of inflammatory bowel disease Medical patient at bed rest Age 61-74 Arthroscopic surgery Major open surgery (> 45 min) Laparoscopic surgery (> 45 min) Malignancy Confined to bed (> 72 hours) Immobilizing plaster cast Central venous access Age >= 75 History of VTE Family history of VTE Factor V Leiden Prothrombin [id number] Lupus anticoagulant Anticardiolipin antibodies Elevated serum homocysteine Heparin-induced thrombocytopenia Other congenital or acquired thrombophilia Stroke (< 1 month) Elective arthroplasty Hip, pelvis, or leg fracture Acute spinal cord injury (< 1 month) Prophylaxis Regimen: Total Risk Factor Score Risk Level Prophylaxis Regimen 0-1 Low Early ambulation 2 Moderate Order ONE of the following: *Sequential Compression Device (SCD) *Heparin 5000 units SQ BID 3-4 Higher Order ONE of the following medications: *Heparin 5000 units SQ TID *Enoxaparin/Lovenox 40 mg SQ daily (WT < 150 kg, CrCl > 30 mL/min) *Enoxaparin/Lovenox 30 mg SQ daily (WT < 150 kg, CrCl > 10-29 mL/min) *Enoxaparin/Lovenox 30 mg SQ BID (WT < 150 kg, CrCl > 30 mL/min) AND/OR *Sequential Compression Device (SCD) 5 or more Highest Order ONE of the following medications: *Heparin 5000 units SQ TID (Preferred with Epidurals) *Enoxaparin/Lovenox 40 mg SQ daily (WT < 150 kg, CrCl > 30 mL/min) *Enoxaparin/Lovenox 30 mg SQ daily (WT < 150 kg, CrCl > 10-29 mL/min) *Enoxaparin/Lovenox 30 mg SQ BID (WT < 150 kg, CrCl > 30 mL/min) AND *Sequential Compression Device (SCD) Assessment and Plan - Problem List (1) Hyponatremia Code(s): E87.1 - Hypo-osmolality and hyponatremia Status: Chronic (2) Elevated troponin Code(s): R74.8 - Abnormal levels of other serum enzymes Status: Acute (3) Proteinuria Code(s): R80.9 - Proteinuria, unspecified Status: Acute (4) Pancytopenia Code(s): D61.818 - Other pancytopenia Status: Acute - Assessment and Plan Plan: NEURO: Tylenol as needed for pain RESP: On RA. 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 Cardiomegaly and mild edema noted on CT abd/pelvis report. Unable to pull up images on PACS currently. Troponin and BNP elevated. Bedside cardiac u/s showed ventricular hypertrophy but EF appears preserved. Will f/u formal Echo EKG showed incomplete RBBB and 1st degree AVB. Aspirin 325 mg now on 81 mg p.o. daily. Does not have ACS symptoms, will hold off on heparin at this time. Cardiology consult GI: Diarrhea Pt reports [address] abd/pelvis - nonspecific edema and small ascites, seen previously. F/u stool C diff, Stool O and P, stool enteric pathogen PCR. Gastroenterology consult FEN/RENAL: Hyponatremia, chronic (>48 hours in onset) Proteinuria - on dipstick Received 2 L NS bolus in the ED. Having a difficult time determining intravascular volume status, however currently IVC appears collapsible and she does not appear volume overloaded despite BNP. BUN/creatinine normal so not significant pre-renal despite low FENa. . urines osm/serum uric and urine sodium could be consistent with SIADH. Sodium appears to be correcting on a slow trend, would want to avoid correction >8 MEQ/24 hours. Monitor sodium q6 hours. No further fluids at this time; will get some fluids from antibiotic administration so monitor sodium to avoid overly rapid correction. ID: Initially felt symptoms may be viral. Influenza pending. Sent blood cultures. In view of worsening pancytopenia and ANC 1000 and low grade fever, added empiric coverage with cefepime and flagyl RHEUM: SLE - pancytopenia, proteinuria ?carditis - may be secondary to lupus flare. Check C3, C4, dsDNA Ab titer, ESR/CRP. Consider initiation of prednisone if infection ruled out. HEME: Pancytopenia retic, iron studies, b12, folate ENDO: Checked TSH and cortisol in view of hyponatremia, normal. PROPH: SCD for DVT prophylaxis. Lovenox 40 mg subcu daily, monitor and discontinue if platelet count less than 50. Protonix 40 mg p.o. daily ACCESS: Peripheral IV providing adequate access Patient is seriously ill with severe hyponatremia. Although this is asymptomatic she is undernourished and at risk for osmotic demyelination syndrome with overly rapid correction. Will require close monitoring in ICU with serial sodiums. Level 3 H&P
[2017-12-24 20:33] LABS: Blood Urea Nitrogen 10 mg/dL (7-18); Calcium 6.7 mg/dL (8.5-10.1); Carbon Dioxide 21.7 meq/L (21.0-32.0); Chloride 83 meq/L (98-107); Glomerular Filtration Rate Greater Than 89 mL/min (>89); Glucose,Random 115 mg/dL (74-106); Potassium 3.7 meq/L (3.5-5.1)
[2017-12-24 20:55] LABS: Anion Gap 11 meq/L (5-15); Total Protein 5.6 g/dL (6.4-8.2)
[2017-12-24 20:57] LABS: Osmolality,Urine 441 mosm/kg (300-1300)
[2017-12-24 21:01] LABS: Calcium-Albumin Corrected 7.4 mg/dL (8.5-10.1); Sodium 116 meq/L (136-145)
[2017-12-24 21:27] LABS: Uric Acid 1.6 mg/dl (2.6-6.0)
--- NOTE | 2017-12-24 21:29 | XR ---
EXAM DATE: 12/24/2017 9:17 PM EDT AGE/SEX: 67 years / Female INDICATIONS: Cough CLINICAL DATA: This is the patient's initial encounter. Patient reports that signs and symptoms have been present for 1 day and indicates a pain score of 0/10. MEDICAL/SURGICAL HISTORY: None. None. COMPARISON: [facility] – [place], CHEST SINGLE AP, 07/20/2015. . FINDINGS: A single AP view of the chest demonstrates the lungs to be symmetrically aerated without evidence of mass, infiltrate or effusion. Mild, chronic interstitial opacities again noted. The cardiomediastina l contours are unremarkable. Osseous structures are intact. CONCLUSION: No acute cardiopulmonary disease demonstrated. Electronically signed by: Josh Pringle MD 12/24/2017 9:28 PM EDT
[2017-12-24] MEDS: Enoxaparin Inj 40 MG/0.4 ML Syringe SQ SCH (21:46)
[2017-12-24 22:26] LABS: Troponin I 2.22 ng/mL (0.02-0.05)
[2017-12-24 22:39] LABS: Creatine Kinase MB 6.4 ng/mL (0.5-3.6)
[2017-12-25 01:46] LABS: Erythrocyte Sedimentation Rate 37 mm/hr (0-30)
[2017-12-25 01:48] LABS: Alanine Aminotransferase 26 U/L (10-53); Alkaline Phosphatase 43 U/L (45-117); Anion Gap 9 meq/L (5-15); Aspartate Aminotransferase 47 U/L (15-37); Blood Urea Nitrogen 9 mg/dL (7-18); Calcium 6.4 mg/dL (8.5-10.1); Carbon Dioxide 22.7 meq/L (21.0-32.0); Chloride 86 meq/L (98-107); Glomerular Filtration Rate Greater Than 89 mL/min (>89); Glucose,Random 86 mg/dL (74-106); Magnesium 1.6 mg/dL (1.5-2.5); Phosphorus 3.4 mg/dL (2.5-4.9); Potassium 3.7 meq/L (3.5-5.1); Total Protein 5.1 g/dL (6.4-8.2)
[2017-12-25 01:53] LABS: Sodium 118 meq/L (136-145)
[2017-12-25 01:54] LABS: Baso % (Auto) 0.7 % (0.0-2.0); Eos % (Auto) 0.1 % (0.0-4.0); Hematocrit 28.5 % (35.0-46.0); Hemoglobin 10.1 gm/dL (11.6-15.3); Lymph # (Auto) 0.3 th/mm3 (1.0-4.8); Lymph % (Auto) 19.1 % (9.0-44.0); Mean Corpuscular HGB Conc 35.3 % (32.0-36.0); Mean Corpuscular Hemoglobin 31.9 pg (27.0-34.0); Mean Corpuscular Volume 90.5 fL (80.0-100.0); Mono # (Auto) 0.3 th/mm3 (0.0-0.9); Mono % (Auto) 19.9 % (0.0-8.0); Neut % (Auto) 60.2 % (16.0-70.0); Platelet Count 95 th/mm3 (150-450); Red Blood Count 3.15 mil/mm3 (4.00-5.30); Red Cell Distribution Width 11.9 % (11.6-17.2); Troponin I 2.44 ng/mL (0.02-0.05); White Blood Count 1.7 th/mm3 (4.0-11.0)
[2017-12-25 02:19] LABS: Lymphocytes 17 % (9-44); Metamyelocytes 1 % (0-1); Monocytes 10 % (0-8); Ovalocytes 1+; Platelet Morphology Normal (Normal)
[2017-12-25] MEDS ORDERED: Chlorhexidine Gluconate 2% 1 Pack (2 Cloths) TOPICAL PRN (04:00)
[2017-12-25 06:21] LABS: Reticulocyte Percent 0.6 % (0.4-3.0)
[2017-12-25] MEDS: Chlorhexidine Gluconate 2% 1 Pack (2 Cloths) TOPICAL SCH (07:04)
--- NOTE | 2017-12-25 11:22 | P.CONGI ---
History of Present Illness Consult date: 12/25/17 Chief complaint: Hyponatremia,hypocalemia, diarrhea History of Present Illness: This is 67-year-old female with a past medical history of systemic lupus erythematosus who was on prednisone and Plaquenil until the beginning of the yr, currently not on tx for this who presents with 2 weeks ago of sore throat, nausea, anorexia, lethargy, and diarrhea. Diarrhea progressively got worse over the last week, can have up to 12 loose stools a day, no melena or hematochezia. She has mild abdominal discomfort. Denies recent travel, abx use or sick contact. She never had EGD/colonoscopy before. She is still not very keen to having these done. Labs significant for hyponatremia, pancytopenia, high troponin. Abdomen/Pelvis CT 12/24/17 1. Nonspecific edema and small ascites. Nothing organized or drainable. Similar findings were seen previously. 2. No focal inflammatory changes are demonstrated. No obstruction. 3. Mild thickening of the interlobular septa of both lung bases suggesting mild pulmonary edema. Heart is enlarged. No pleural effusion. Previously seen pericardial effusion is no longer present. <Aj Duque - Last Filed: 12/25/17 11:02> PMFSH - History History Provided By: Patient - Medical History Medical History: Medical History (Last Updated 12/24/17 @ 16:47 by Erlinda Lan) Alopecia Lupus - Surgical History Surgical History: Surgical History (Last Updated 12/25/17 @ 09:49 by Mackenzie Underwood MD) No history of previous surgery - Family History Family History: Family History (Last Updated 12/25/17 @ 09:49 by Mackenzie Underwood MD) Other No significant family history - Tobacco History Second Hand Smoke Exposure: No Smoking Status: Never smoker - Alcohol History How Often Do You Have a Drink Containing Alcohol: Never - Substance Use History Substance History: No History of Abuse - Travel History Recent Travel in the [place] Within the Last 8 Weeks: No Recent Travel Out of the Country Within the Last 8 Weeks: No - Immunization History Tetanus Immunization: >5 Years Hx Influenza Vaccine This Season: No <Aj Duque - Last Filed: 12/25/17 11:02> - Medical History Medical History: Medical History (Last Updated 12/24/17 @ 16:47 by Erlinda Lan) Alopecia Lupus - Surgical History Surgical History: Surgical History (Last Updated 12/25/17 @ 09:49 by Mackenzie Underwood MD) No history of previous surgery - Family History Family History: Family History (Last Updated 12/25/17 @ 09:49 by Mackenzie Underwood MD) Other No significant family history <Moira White - Last Filed: 12/25/17 19:24> Medications and Allergies Active Medications: Active Medications Acetaminophen (Tylenol) 650 mg PO Q6H PRN PRN Reason: PAIN 1-10 AND/OR FEVER >101F Aspirin (Aspirin Chew) 81 mg PO DAILY [facility] Last Admin: 12/25/17 10:12 Dose: 81 mg Chlorhexidine Gluconate (Chlorhexidine 2% Cloth) 3 pack TOPICAL DAILY@0400 JONAS Stop: 12/30/17 03:59 Last Admin: 12/25/17 07:04 Dose: 3 pack Chlorhexidine Gluconate (Chlorhexidine 2% Cloth) 3 pack TOPICAL DAILY@0400 PRN PRN Reason: Extra cloth needed Stop: 12/30/17 03:59 Enoxaparin Sodium (Lovenox Inj) 40 mg SQ Q24H [facility] Last Admin: 12/24/17 21:46 Dose: 40 mg Cefepime HCl 2,000 mg/ Sodium (Chloride) 100 mls @ 200 mls/hr IV.SIG Q8H [facility] Last Admin: 12/25/17 10:12 Dose: 200 mls/hr Metronidazole/Sodium Chloride (Flagyl 500 Mg Inj) 100 mls @ 100 mls/hr IV.SIG Q8H [facility] Last Infusion: 12/25/17 10:04 Dose: Infused Ondansetron HCl (Zofran Inj) 4 mg IV.PUSH Q6H PRN PRN Reason: nausea Last Admin: 12/25/17 10:13 Dose: 4 mg Pantoprazole Sodium (Protonix) 40 mg PO DAILY JONAS Last Admin: 12/25/17 10:13 Dose: 40 mg Promethazine HCl (Phenergan Inj) 25 mg IM Q6H PRN PRN Reason: breakthrough nausea Last Admin: 12/24/17 21:38 Dose: 25 mg Sodium Chloride (Ns Flush) 2 ml IV.FLUSH BID JONAS Last Admin: 12/25/17 10:13 Dose: 2 ml Sodium Chloride (Ns Flush) 2 ml IV.FLUSH PRN PRN PRN Reason: FLUSH AFTER USING IV ACCESS <Aj Duque - Last Filed: 12/25/17 11:02> Active Medications: Active Medications Acetaminophen (Tylenol) 650 mg PO Q6H PRN PRN Reason: PAIN 1-10 AND/OR FEVER >101F Aspirin (Aspirin Chew) 81 mg PO DAILY [facility] Last Admin: 12/25/17 10:12 Dose: 81 mg Chlorhexidine Gluconate (Chlorhexidine 2% Cloth) 3 pack TOPICAL DAILY@0400 [facility] Stop: 12/30/17 03:59 Last Admin: 12/25/17 07:04 Dose: 3 pack Chlorhexidine Gluconate (Chlorhexidine 2% Cloth) 3 pack TOPICAL DAILY@0400 PRN PRN Reason: Extra cloth needed Stop: 12/30/17 03:59 Enoxaparin Sodium (Lovenox Inj) 40 mg SQ Q24H [facility] Last Admin: 12/24/17 21:46 Dose: 40 mg Cefepime HCl 2,000 mg/ Sodium (Chloride) 100 mls @ 200 mls/hr IV.SIG Q8H [facility] Last Infusion: 12/25/17 16:25 Dose: Infused Metronidazole/Sodium Chloride (Flagyl 500 Mg Inj) 100 mls @ 100 mls/hr IV.SIG Q8H [facility] Last Infusion: 12/25/17 14:20 Dose: Infused Magnesium Sulfate 4 gm/ Sodium (Chloride) 100 mls @ 50 mls/hr IV.SIG UNSCH PRN PRN Reason: For Magnesium 0.9 - 1.1 mg/dL Magnesium Sulfate 2 gm/ Sodium (Chloride) 100 mls @ 50 mls/hr IV.SIG UNSCH PRN PRN Reason: For Magnesium 1.2 - 1.6 mg/dL Potassium Chloride (Kcl 20 Meq Premix Inj) 20 meq in 100 mls @ 50 mls/hr IV.SIG Q2H PRN PRN Reason: For Potassium 3.3 - 3.5 mEq/L Potassium Chloride (Kcl 40 Meq Premix Inj) 40 meq in 100 mls @ 25 mls/hr IV.SIG UNSCH PRN PRN Reason: For Potassium 3.3 - 3.5 mEq/L Potassium Chloride (Kcl 20 Meq Premix Inj) 20 meq in 100 mls @ 50 mls/hr IV.SIG Q2H PRN PRN Reason: For Potassium 2.8 - 3.2 mEq/L Potassium Phosphate 30 mmol/ (Sodium Chloride) 260 mls @ 42 mls/hr IV.SIG UNSCH PRN PRN Reason: SEE LABEL COMMENTS Sodium Phosphate 30 mmol/ (Sodium Chloride) 260 mls @ 42 mls/hr IV.SIG UNSCH PRN PRN Reason: For Phosphorus < 2.5 mg/dL Potassium Chloride (Kcl 40 Meq Premix Inj) 40 meq in 100 mls @ 50 mls/hr IV.SIG Q2H PRN PRN Reason: For Potassium 2.8 - 3.2 mEq/L Potassium Chloride/Dextrose/Sod Cl (D5w/1/2ns + Kcl 20 Meq Inj) 1,000 mls @ 75 mls/hr IV.CONT .[id number] [facility] Magnesium Oxide (Mag-Ox) 800 mg PO UNSCH PRN PRN Reason: For Magnesium 1.2 - 1.6 mg/dL Ondansetron HCl (Zofran Inj) 4 mg IV.PUSH Q6H PRN PRN Reason: nausea Last Admin: 12/25/17 10:13 Dose: 4 mg Pantoprazole Sodium (Protonix) 40 mg PO DAILY [facility] Last Admin: 12/25/17 10:13 Dose: 40 mg Potassium Bicarb/Potassium Chloride (K-Lyte Cl Eff) 50 meq PO UNSCH PRN PRN Reason: For Potassium 3.3 - 3.5 mEq/L Potassium Phosphate (K-Phos Original) 2,000 mg PO Q4H PRN PRN Reason: Phosphorus Less Than 2.5 mg/dL Potassium Phosphate (K-Phos Original) 2,000 mg PO UNSCH PRN PRN Reason: SEE LABEL COMMENTS Promethazine HCl (Phenergan Inj) 25 mg IM Q6H PRN PRN Reason: breakthrough nausea Last Admin: 12/25/17 13:07 Dose: 25 mg Sodium Chloride (Ns Flush) 2 ml IV.FLUSH BID [facility] Last Admin: 12/25/17 10:13 Dose: 2 ml Sodium Chloride (Ns Flush) 2 ml IV.FLUSH PRN PRN PRN Reason: FLUSH AFTER USING IV ACCESS Throat Lozenges (Chloraseptic [place]) 1 spray OROPHARYNG Q2H PRN PRN Reason: SORE THROAT Last Admin: 12/25/17 16:49 Dose: 1 spray <Bratu,Moira - Last Filed: 12/25/17 19:24> Allergies Allergy/AdvReac Type Severity Reaction Status Date / Time morphine Allergy Intermediate Rash Verified 12/24/17 16:31 Home Medications Medication Instructions Recorded Confirmed Type No Known Home Medications 12/24/17 12/24/17 History Exam Vital signs: Vital Signs 12/24/17 16:09 12/24/17 16:50 12/24/17 18:04 Temperature 98.7 F Pulse Rate 79 78 79 Respiratory Rate 16 17 17 Blood Pressure 193/90 H 177/82 H 153/70 H Pulse Oximetry 99 98 98 12/24/17 21:02 12/24/17 21:30 12/24/17 21:32 Temperature Pulse Rate 78 77 Respiratory Rate 16 20 Blood Pressure 149/77 H 154/79 H Pulse Oximetry 94 L 94 L 12/24/17 21:45 12/24/17 21:57 12/24/17 22:00 Temperature 100 F H Pulse Rate 74 75 70 Respiratory Rate 16 22 21 Blood Pressure 149/77 H 159/78 H Pulse Oximetry 94 L 96 94 L 12/24/17 22:12 12/24/17 22:27 12/24/17 22:42 Temperature Pulse Rate 69 73 75 Respiratory Rate 21 19 35 H Blood Pressure 150/80 H 146/70 H 170/87 H Pulse Oximetry 93 L 96 93 L 12/24/17 22:57 12/24/17 23:00 12/24/17 23:12 Temperature Pulse Rate 67 66 71 Respiratory Rate 21 15 21 Blood Pressure 144/69 H 148/70 H Pulse Oximetry 93 L 94 L 95 12/24/17 23:27 12/24/17 23:42 12/24/17 23:57 Temperature Pulse Rate 71 63 60 Respiratory Rate 21 28 H 16 Blood Pressure 153/70 H 126/69 112/62 Pulse Oximetry 94 L 94 L 93 L 12/25/17 00:00 12/25/17 00:12 12/25/17 00:27 Temperature 99.5 F Pulse Rate 60 66 66 Respiratory Rate 20 27 H 15 Blood Pressure 161/80 H 139/73 Pulse Oximetry 92 L 94 L 95 12/25/17 00:42 12/25/17 00:57 12/25/17 01:00 EST Temperature Pulse Rate 71 70 69 Respiratory Rate 18 23 29 H Blood Pressure 140/71 160/70 H Pulse Oximetry 96 95 92 L 12/25/17 01:12 EST 12/25/17 01:27 EST 12/25/17 01:41 EST Temperature 99.5 F Pulse Rate 63 62 64 Respiratory Rate 10 L 10 L 13 Blood Pressure 102/58 L 102/58 L 132/67 Pulse Oximetry 93 L 94 L 94 L 12/25/17 01:42 EST 12/25/17 01:57 EST 12/25/17 02:00 Temperature Pulse Rate 59 L 63 63 Respiratory Rate 12 12 13 Blood Pressure 99/55 L 106/59 L Pulse Oximetry 94 L 92 L 94 L 12/25/17 02:12 12/25/17 02:27 12/25/17 02:42 Temperature Pulse Rate 59 L 59 L 59 L Respiratory Rate 0 L 15 16 Blood Pressure 102/57 L 123/67 125/70 Pulse Oximetry 95 97 98 12/25/17 02:57 12/25/17 03:00 12/25/17 03:27 Temperature Pulse Rate 65 65 58 L Respiratory Rate 19 34 H 12 Blood Pressure 148/78 H 114/60 Pulse Oximetry 98 98 93 L 12/25/17 03:42 12/25/17 03:57 12/25/17 04:00 Temperature Pulse Rate 58 L 57 L 56 L Respiratory Rate 12 12 12 Blood Pressure 102/56 L 95/52 L Pulse Oximetry 93 L 93 L 92 L 12/25/17 04:12 12/25/17 04:27 12/25/17 04:42 Temperature Pulse Rate 56 L 56 L 56 L Respiratory Rate 10 L 13 13 Blood Pressure 102/57 L 95/53 L 94/52 L Pulse Oximetry 95 94 L 94 L 12/25/17 04:57 12/25/17 05:00 12/25/17 05:12 Temperature Pulse Rate 56 L 56 L 60 Respiratory Rate 14 14 19 Blood Pressure 91/50 L 145/76 H Pulse Oximetry 93 L 93 L 97 12/25/17 05:27 12/25/17 05:42 12/25/17 05:57 Temperature Pulse Rate 58 L 57 L 57 L Respiratory Rate 15 11 L 10 L Blood Pressure 135/63 127/62 105/56 L Pulse Oximetry 96 96 96 12/25/17 06:00 12/25/17 06:12 12/25/17 06:27 Temperature Pulse Rate 57 L 57 L 55 L Respiratory Rate 9 L 13 13 Blood Pressure 95/54 L 84/50 L Pulse Oximetry 96 96 96 12/25/17 06:30 Temperature Pulse Rate 58 L Respiratory Rate 11 L Blood Pressure 101/57 L Pulse Oximetry 96 Intake & Output 12/24/17 12/25/17 12/25/17 19:59 06:59 18:59 Intake Total 100 / 100 Balance 100 / 100 Weight Intake: IV 100 / 100 Calcium Gluconate Inj 2 GM In NS Inj 100 ML @ 120 mls/hr IV. SIG ONCE ONE Rx#:[id number] NS Inj 1,000 ML @ 1000 mls/hr IV.SIG BOLUS JONAS Rx#:[id number] Flagyl 500 MG Inj 100 ML @ 100 100 / 100 mls/hr IV.SIG Q8H JONAS Rx#: [id number] Oral Other: # Voids Date of Last Bowel Movement # Bowel Movements Weight On Admission - Constitutional no acute distress - Routine HEENT Exam Head: Present: normocephalic Comments: Malar rash - Routine Neck Exam Present: supple - Routine Respiratory Exam Present: CTA bilaterally - Routine Cardiovascular Exam Present: RRR - Routine Abdominal Exam Present: soft, normoactive bowel sounds. Absent: tenderness, distended - Routine Skin Exam Present: intact, dry - Routine Neurological Exam Present: alert, oriented X3 <Aj Duque - Last Filed: 12/25/17 11:02> Vital signs: Vital Signs 12/24/17 21:02 12/24/17 21:30 12/24/17 21:32 Temperature Pulse Rate 78 77 Respiratory Rate 16 20 Blood Pressure 149/77 H 154/79 H Pulse Oximetry 94 L 94 L 12/24/17 21:45 12/24/17 21:57 12/24/17 22:00 Temperature 100 F H Pulse Rate 74 75 70 Respiratory Rate 16 22 21 Blood Pressure 149/77 H 159/78 H Pulse Oximetry 94 L 96 94 L 12/24/17 22:12 12/24/17 22:27 12/24/17 22:42 Temperature Pulse Rate 69 73 75 Respiratory Rate 21 19 35 H Blood Pressure 150/80 H 146/70 H 170/87 H Pulse Oximetry 93 L 96 93 L 12/24/17 22:57 12/24/17 23:00 12/24/17 23:12 Temperature Pulse Rate 67 66 71 Respiratory Rate 21 15 21 Blood Pressure 144/69 H 148/70 H Pulse Oximetry 93 L 94 L 95 12/24/17 23:27 12/24/17 23:42 12/24/17 23:57 Temperature Pulse Rate 71 63 60 Respiratory Rate 21 28 H 16 Blood Pressure 153/70 H 126/69 112/62 Pulse Oximetry 94 L 94 L 93 L 12/25/17 00:00 12/25/17 00:12 12/25/17 00:27 Temperature 99.5 F Pulse Rate 60 66 66 Respiratory Rate 20 27 H 15 Blood Pressure 161/80 H 139/73 Pulse Oximetry 92 L 94 L 95 12/25/17 00:42 12/25/17 00:57 12/25/17 01:00 EST Temperature Pulse Rate 71 70 69 Respiratory Rate 18 23 29 H Blood Pressure 140/71 160/70 H Pulse Oximetry 96 95 92 L 12/25/17 01:12 EST 12/25/17 01:27 EST 12/25/17 01:41 EST Temperature 99.5 F Pulse Rate 63 62 64 Respiratory Rate 10 L 10 L 13 Blood Pressure 102/58 L 102/58 L 132/67 Pulse Oximetry 93 L 94 L 94 L 12/25/17 01:42 EST 12/25/17 01:57 EST 12/25/17 02:00 Temperature Pulse Rate 59 L 63 63 Respiratory Rate 12 12 13 Blood Pressure 99/55 L 106/59 L Pulse Oximetry 94 L 92 L 94 L 12/25/17 02:12 12/25/17 02:27 12/25/17 02:42 Temperature Pulse Rate 59 L 59 L 59 L Respiratory Rate 0 L 15 16 Blood Pressure 102/57 L 123/67 125/70 Pulse Oximetry 95 97 98 12/25/17 02:57 12/25/17 03:00 12/25/17 03:27 Temperature Pulse Rate 65 65 58 L Respiratory Rate 19 34 H 12 Blood Pressure 148/78 H 114/60 Pulse Oximetry 98 98 93 L 12/25/17 03:42 12/25/17 03:57 12/25/17 04:00 Temperature Pulse Rate 58 L 57 L 56 L Respiratory Rate 12 12 12 Blood Pressure 102/56 L 95/52 L Pulse Oximetry 93 L 93 L 92 L 12/25/17 04:12 12/25/17 04:27 12/25/17 04:42 Temperature Pulse Rate 56 L 56 L 56 L Respiratory Rate 10 L 13 13 Blood Pressure 102/57 L 95/53 L 94/52 L Pulse Oximetry 95 94 L 94 L 12/25/17 04:57 12/25/17 05:00 12/25/17 05:12 Temperature Pulse Rate 56 L 56 L 60 Respiratory Rate 14 14 19 Blood Pressure 91/50 L 145/76 H Pulse Oximetry 93 L 93 L 97 12/25/17 05:27 12/25/17 05:42 12/25/17 05:57 Temperature Pulse Rate 58 L 57 L 57 L Respiratory Rate 15 11 L 10 L Blood Pressure 135/63 127/62 105/56 L Pulse Oximetry 96 96 96 12/25/17 06:00 12/25/17 06:12 12/25/17 06:27 Temperature Pulse Rate 57 L 57 L 55 L Respiratory Rate 9 L 13 13 Blood Pressure 95/54 L 84/50 L Pulse Oximetry 96 96 96 12/25/17 06:30 12/25/17 06:42 12/25/17 06:57 Temperature Pulse Rate 58 L 56 L 59 L Respiratory Rate 11 L 13 16 Blood Pressure 101/57 L 97/56 L 122/60 Pulse Oximetry 96 96 98 12/25/17 07:00 12/25/17 07:12 12/25/17 07:27 Temperature Pulse Rate 59 L 59 L 57 L Respiratory Rate 16 14 15 Blood Pressure 151/80 H 130/70 Pulse Oximetry 98 95 95 12/25/17 07:42 12/25/17 07:57 12/25/17 08:00 Temperature 97.9 F Pulse Rate 58 L 57 L 62 Respiratory Rate 14 13 24 Blood Pressure 135/77 137/76 Pulse Oximetry 92 L 94 L 95 12/25/17 08:12 12/25/17 08:27 12/25/17 08:42 Temperature Pulse Rate 58 L 59 L 58 L Respiratory Rate 12 13 20 Blood Pressure 114/58 L 100/56 L 102/55 L Pulse Oximetry 96 95 94 L 12/25/17 08:57 12/25/17 09:00 12/25/17 09:12 Temperature Pulse Rate 64 63 60 Respiratory Rate 22 21 10 L Blood Pressure 136/82 147/74 H Pulse Oximetry 98 98 95 12/25/17 09:27 12/25/17 09:42 12/25/17 09:57 Temperature Pulse Rate 61 63 61 Respiratory Rate 20 24 15 Blood Pressure 149/82 H 139/68 150/72 H Pulse Oximetry 97 97 97 12/25/17 10:00 12/25/17 10:12 12/25/17 10:27 Temperature Pulse Rate 59 L 59 L 65 Respiratory Rate 15 15 37 H Blood Pressure 122/70 142/72 H Pulse Oximetry 99 95 98 12/25/17 10:42 12/25/17 10:57 12/25/17 11:00 Temperature Pulse Rate 61 68 66 Respiratory Rate 23 21 23 Blood Pressure 127/67 138/74 Pulse Oximetry 99 95 96 12/25/17 11:12 12/25/17 11:27 12/25/17 11:42 Temperature Pulse Rate 61 61 58 L Respiratory Rate 19 12 12 Blood Pressure 137/78 130/74 121/68 Pulse Oximetry 99 96 95 12/25/17 11:57 12/25/17 12:00 12/25/17 12:12 Temperature 98.2 F Pulse Rate 61 61 62 Respiratory Rate 16 15 15 Blood Pressure 120/65 133/75 Pulse Oximetry 96 97 97 12/25/17 12:27 12/25/17 12:42 12/25/17 12:57 Temperature Pulse Rate 60 56 L 56 L Respiratory Rate 24 20 13 Blood Pressure 103/66 136/70 120/61 Pulse Oximetry 97 95 95 12/25/17 13:00 12/25/17 13:12 12/25/17 13:27 Temperature Pulse Rate 56 L 58 L 58 L Respiratory Rate 14 12 12 Blood Pressure 142/70 H 127/65 Pulse Oximetry 95 96 95 12/25/17 13:42 12/25/17 13:57 12/25/17 14:00 Temperature Pulse Rate 56 L 56 L 55 L Respiratory Rate 12 13 12 Blood Pressure 110/55 L 96/53 L Pulse Oximetry 93 L 94 L 93 L 12/25/17 14:12 12/25/17 14:27 12/25/17 14:42 Temperature Pulse Rate 56 L 56 L 65 Respiratory Rate 13 12 22 Blood Pressure 113/58 L 113/62 146/67 H Pulse Oximetry 94 L 96 97 12/25/17 14:57 12/25/17 15:00 12/25/17 15:12 Temperature Pulse Rate 65 62 62 Respiratory Rate 16 18 21 Blood Pressure 159/71 H 135/72 Pulse Oximetry 97 95 98 12/25/17 15:27 12/25/17 15:42 12/25/17 15:57 Temperature Pulse Rate 61 63 63 Respiratory Rate 21 19 24 Blood Pressure 141/71 H 136/80 143/74 H Pulse Oximetry 96 99 97 12/25/17 16:00 12/25/17 16:12 12/25/17 16:27 Temperature 98.8 F Pulse Rate 61 60 62 Respiratory Rate 16 13 18 Blood Pressure 135/69 130/63 Pulse Oximetry 96 96 98 12/25/17 17:00 12/25/17 17:15 12/25/17 17:48 Temperature Pulse Rate 58 L 64 65 Respiratory Rate 15 24 25 H Blood Pressure 140/64 137/65 Pulse Oximetry 97 98 97 12/25/17 18:00 Temperature Pulse Rate 103 H Respiratory Rate 37 H Blood Pressure Pulse Oximetry 95 Intake & Output 12/25/17 12/25/17 12/26/17 06:59 18:59 06:59 Intake Total 880 / 880 Balance 880 / 880 Weight Intake: IV 400 / 400 Maxipime Inj 2,000 MG In NS Inj 200 / 200 100 ML @ 200 mls/hr IV.SIG Q8H JONAS Rx#:[id number] Flagyl 500 MG Inj 100 ML @ 100 200 / 200 mls/hr IV.SIG Q8H JONAS Rx#: [id number] Oral 480 / 480 Other: # Voids 2 Date of Last Bowel Movement 12/25/17 # Bowel Movements 1 Weight On Admission <Moira White - Last Filed: 12/25/17 19:24> Results - Labs CBC & Chem 7: 12/25/17 01:05 EST 12/25/17 01:05 EST Labs: Laboratory Results - last 24 hr 12/24/17 12/24/17 12/24/17 16:31 16:31 17:57 WBC 2.7 L RBC 3.39 L Hgb 11.1 L Hct 31.4 L MCV 92.8 MCH 32.8 MCHC 35.4 RDW 12.0 Plt Count 108 L MPV 8.9 Prelim Diff (Auto) Neut % (Auto) 80.1 H Lymph % (Auto) 7.0 L [place] % (Auto) 11.7 H Eos % (Auto) 0.0 Baso % (Auto) 1.2 Neut # (Auto) 2.1 Lymph # (Auto) 0.2 L [place] # (Auto) 0.3 Eos # (Auto) 0.0 Baso # (Auto) 0.0 WBC Differential . Seg Neuts % (Manual) Band Neuts % (Manual) Lymphocytes % (Manual) Monocytes % (Manual) Metamyelocytes % (Man) Abs Neuts (Manual) Differential Comment Auto diff final Platelet Estimate Platelet Morphology Ovalocytes ESR Retic Count Absolute Retic Sodium 113 L* Potassium 4.1 Chloride 77 L Carbon Dioxide 26.2 Anion Gap 10 BUN 10 Creatinine 0.65 Estimated GFR Greater than 89 Random Glucose 138 H Osmolality Uric Acid Calcium 7.1 L* Prot Corrected Calcium 7.4 L* Phosphorus Magnesium 1.8 Total Bilirubin 0.4 AST 58 H ALT 33 Alkaline Phosphatase 55 Total Creatine Kinase CK-MB (CK-2) CK-MB (CK-2) % Troponin I C-Reactive Protein B-Natriuretic Peptide Total Protein 6.6 Albumin 2.6 L Lipase 154 TSH Cortisol Urine Color Yellow Urine Clarity Hazy H Urine pH 6.0 Ur Specific [place] 1.019 Urine Protein 500 or greater Urine Glucose (UA) 50 Urine Ketones 20 Urine Occult Blood Negative Urine Nitrate Negative Urine Bilirubin Negative Urine Urobilinogen Less than 2 Ur Leukocyte Esterase Negative Urine RBC 10 H Urine WBC 7 H Ur Squamous Epith Cells 1 Amorphous Sediment Few H Urine Bacteria Occasional H Hyaline Casts 38 Urine Mucus Few H Micro UA Comment Culture not ind Ur Microscopic Review Not Reportable Urine Culture Comments Culture not ind Urine Osmolality Ur Random Creatinine Ur Random Sodium Ur Random Chloride Nasal Screen MRSA (PCR) Complement C3 Complement C4 12/24/17 12/24/17 12/24/17 17:57 17:57 17:57 WBC RBC Hgb Hct MCV MCH MCHC RDW Plt Count MPV Prelim Diff (Auto) Neut % (Auto) Lymph % (Auto) [place] % (Auto) Eos % (Auto) Baso % (Auto) Neut # (Auto) Lymph # (Auto) [place] # (Auto) Eos # (Auto) Baso # (Auto) WBC Differential Seg Neuts % (Manual) Band Neuts % (Manual) Lymphocytes % (Manual) Monocytes % (Manual) Metamyelocytes % (Man) Abs Neuts (Manual) Differential Comment Platelet Estimate Platelet Morphology Ovalocytes ESR Retic Count Absolute Retic Sodium Potassium Chloride Carbon Dioxide Anion Gap BUN Creatinine Estimated GFR Random Glucose Osmolality Uric Acid Calcium Prot Corrected Calcium Phosphorus Magnesium Total Bilirubin AST ALT Alkaline Phosphatase Total Creatine Kinase CK-MB (CK-2) CK-MB (CK-2) % Troponin I C-Reactive Protein B-Natriuretic Peptide Total Protein Albumin Lipase TSH Cortisol Urine Color Urine Clarity Urine pH Ur Specific [place] Urine Protein Urine Glucose (UA) Urine Ketones Urine Occult Blood Urine Nitrate Urine Bilirubin Urine Urobilinogen Ur Leukocyte Esterase Urine RBC Urine WBC Ur Squamous Epith Cells Amorphous Sediment Urine Bacteria Hyaline Casts Urine Mucus Micro UA Comment Ur Microscopic Review Urine Culture Comments Urine Osmolality 441 Ur Random Creatinine 89 Cancelled Ur Random Sodium 33 Cancelled Ur Random Chloride 50 Nasal Screen MRSA (PCR) Complement C3 Complement C4 12/24/17 12/24/17 12/24/17 17:57 19:25 19:25 WBC RBC Hgb Hct MCV MCH MCHC RDW Plt Count MPV Prelim Diff (Auto) Neut % (Auto) Lymph % (Auto) [place] % (Auto) Eos % (Auto) Baso % (Auto) Neut # (Auto) Lymph # (Auto) [place] # (Auto) Eos # (Auto) Baso # (Auto) WBC Differential Seg Neuts % (Manual) Band Neuts % (Manual) Lymphocytes % (Manual) Monocytes % (Manual) Metamyelocytes % (Man) Abs Neuts (Manual) Differential Comment Platelet Estimate Platelet Morphology Ovalocytes ESR Retic Count Absolute Retic Sodium Potassium Chloride Carbon Dioxide Anion Gap BUN Creatinine Estimated GFR Random Glucose Osmolality 239 L Uric Acid Calcium Prot Corrected Calcium Phosphorus Magnesium Total Bilirubin AST ALT Alkaline Phosphatase Total Creatine Kinase CK-MB (CK-2) CK-MB (CK-2) % Troponin I C-Reactive Protein B-Natriuretic Peptide Total Protein Albumin Lipase TSH Cortisol 23.5 Urine Color Urine Clarity Urine pH Ur Specific [place] Urine Protein Urine Glucose (UA) Urine Ketones Urine Occult Blood Urine Nitrate Urine Bilirubin Urine Urobilinogen Ur Leukocyte Esterase Urine RBC Urine WBC Ur Squamous Epith Cells Amorphous Sediment Urine Bacteria Hyaline Casts Urine Mucus Micro UA Comment Ur Microscopic Review Urine Culture Comments Urine Osmolality Cancelled Ur Random Creatinine Ur Random Sodium Ur Random Chloride Nasal Screen MRSA (PCR) Complement C3 Complement C4 12/24/17 12/24/17 12/24/17 19:25 19:25 19:25 WBC 2.3 L RBC 3.03 L Hgb 10.0 L Hct 27.5 L MCV 90.8 MCH 32.8 MCHC 36.2 H RDW 11.8 Plt Count 94 L MPV 9.1 Prelim Diff (Auto) Neut % (Auto) Lymph % (Auto) [place] % (Auto) Eos % (Auto) Baso % (Auto) Neut # (Auto) Lymph # (Auto) [place] # (Auto) Eos # (Auto) Baso # (Auto) WBC Differential Seg Neuts % (Manual) Band Neuts % (Manual) Lymphocytes % (Manual) Monocytes % (Manual) Metamyelocytes % (Man) Abs Neuts (Manual) Differential Comment Platelet Estimate Platelet Morphology Ovalocytes ESR Retic Count Absolute Retic Sodium 116 L* Potassium 3.7 Chloride 83 L Carbon Dioxide 21.7 Anion Gap 11 BUN 10 Creatinine 0.57 Estimated GFR Greater than 89 Random Glucose 115 H Osmolality Uric Acid 1.6 L Calcium 6.7 L* Prot Corrected Calcium 7.4 L* Phosphorus Magnesium Total Bilirubin AST ALT Alkaline Phosphatase Total Creatine Kinase CK-MB (CK-2) CK-MB (CK-2) % Troponin I C-Reactive Protein B-Natriuretic Peptide 640 H Total Protein 5.6 L D Albumin Lipase TSH Cortisol Urine Color Urine Clarity Urine pH Ur Specific [place] Urine Protein Urine Glucose (UA) Urine Ketones Urine Occult Blood Urine Nitrate Urine Bilirubin Urine Urobilinogen Ur Leukocyte Esterase Urine RBC Urine WBC Ur Squamous Epith Cells Amorphous Sediment Urine Bacteria Hyaline Casts Urine Mucus Micro UA Comment Ur Microscopic Review Urine Culture Comments Urine Osmolality Ur Random Creatinine Ur Random Sodium Ur Random Chloride Nasal Screen MRSA (PCR) Complement C3 Complement C4 12/24/17 12/24/17 12/24/17 19:25 19:25 19:25 WBC RBC Hgb Hct MCV MCH MCHC RDW Plt Count MPV Prelim Diff (Auto) Neut % (Auto) Lymph % (Auto) [place] % (Auto) Eos % (Auto) Baso % (Auto) Neut # (Auto) Lymph # (Auto) [place] # (Auto) Eos # (Auto) Baso # (Auto) WBC Differential Seg Neuts % (Manual) Band Neuts % (Manual) Lymphocytes % (Manual) Monocytes % (Manual) Metamyelocytes % (Man) Abs Neuts (Manual) Differential Comment Platelet Estimate Platelet Morphology Ovalocytes ESR Retic Count Absolute Retic Sodium Potassium Chloride Carbon Dioxide Anion Gap BUN Creatinine Estimated GFR Random Glucose Osmolality Uric Acid Cancelled Calcium Prot Corrected Calcium Phosphorus Magnesium Total Bilirubin AST ALT Alkaline Phosphatase Total Creatine Kinase 211 H CK-MB (CK-2) 6.4 H CK-MB (CK-2) % 3.0 Troponin I 2.22 H* C-Reactive Protein B-Natriuretic Peptide Total Protein Albumin Lipase TSH 2.450 Cortisol Urine Color Urine Clarity Urine pH Ur Specific [place] Urine Protein Urine Glucose (UA) Urine Ketones Urine Occult Blood Urine Nitrate Urine Bilirubin Urine Urobilinogen Ur Leukocyte Esterase Urine RBC Urine WBC Ur Squamous Epith Cells Amorphous Sediment Urine Bacteria Hyaline Casts Urine Mucus Micro UA Comment Ur Microscopic Review Urine Culture Comments Urine Osmolality Ur Random Creatinine Ur Random Sodium Ur Random Chloride Nasal Screen MRSA (PCR) Complement C3 Complement C4 12/24/17 12/24/17 12/24/17 19:25 19:25 19:25 WBC RBC Hgb Hct MCV MCH MCHC RDW Plt Count MPV Prelim Diff (Auto) Neut % (Auto) Lymph % (Auto) [place] % (Auto) Eos % (Auto) Baso % (Auto) Neut # (Auto) Lymph # (Auto) [place] # (Auto) Eos # (Auto) Baso # (Auto) WBC Differential Seg Neuts % (Manual) Band Neuts % (Manual) Lymphocytes % (Manual) Monocytes % (Manual) Metamyelocytes % (Man) Abs Neuts (Manual) Differential Comment Platelet Estimate Platelet Morphology Ovalocytes ESR Retic Count Absolute Retic Sodium Potassium Chloride Carbon Dioxide Anion Gap BUN Creatinine Estimated GFR Random Glucose Osmolality Uric Acid Calcium Prot Corrected Calcium Phosphorus Magnesium Total Bilirubin AST ALT Alkaline Phosphatase Total Creatine Kinase CK-MB (CK-2) CK-MB (CK-2) % Troponin I C-Reactive Protein Less than 0.29 B-Natriuretic Peptide Total Protein Albumin Lipase TSH Cortisol Urine Color Urine Clarity Urine pH Ur Specific [place] Urine Protein Urine Glucose (UA) Urine Ketones Urine Occult Blood Urine Nitrate Urine Bilirubin Urine Urobilinogen Ur Leukocyte Esterase Urine RBC Urine WBC Ur Squamous Epith Cells Amorphous Sediment Urine Bacteria Hyaline Casts Urine Mucus Micro UA Comment Ur Microscopic Review Urine Culture Comments Urine Osmolality Ur Random Creatinine Ur Random Sodium Ur Random Chloride Nasal Screen MRSA (PCR) Complement C3 18 L Complement C4 3 L 12/24/17 12/25/17 12/25/17 23:30 01:05 EST 01:05 EST WBC 1.7 L RBC 3.15 L Hgb 10.1 L Hct 28.5 L MCV 90.5 MCH 31.9 MCHC 35.3 RDW 11.9 Plt Count 95 L MPV 9.0 Prelim Diff (Auto) Slide review pending Neut % (Auto) 60.2 Lymph % (Auto) 19.1 [place] % (Auto) 19.9 H Eos % (Auto) 0.1 Baso % (Auto) 0.7 Neut # (Auto) 1.0 L Lymph # (Auto) 0.3 L [place] # (Auto) 0.3 Eos # (Auto) 0.0 Baso # (Auto) 0.0 WBC Differential Manual diff final Seg Neuts % (Manual) 67 Band Neuts % (Manual) 5 Lymphocytes % (Manual) 17 Monocytes % (Manual) 10 H Metamyelocytes % (Man) 1 Abs Neuts (Manual) 1.2 L Differential Comment . Platelet Estimate Low L Platelet Morphology Normal Ovalocytes 1+ H ESR 37 H Retic Count Absolute Retic Sodium 118 L* Potassium 3.7 Chloride 86 L Carbon Dioxide 22.7 Anion Gap 9 BUN 9 Creatinine 0.65 Estimated GFR Greater than 89 Random Glucose 86 Osmolality Uric Acid Calcium 6.4 L* Prot Corrected Calcium 7.4 L* Phosphorus 3.4 Magnesium 1.6 Total Bilirubin 0.3 AST 47 H ALT 26 Alkaline Phosphatase 43 L Total Creatine Kinase CK-MB (CK-2) CK-MB (CK-2) % Troponin I 2.44 H* D C-Reactive Protein B-Natriuretic Peptide Total Protein 5.1 L Albumin 2.0 L D Lipase TSH Cortisol Urine Color Urine Clarity Urine pH Ur Specific [place] Urine Protein Urine Glucose (UA) Urine Ketones Urine Occult Blood Urine Nitrate Urine Bilirubin Urine Urobilinogen Ur Leukocyte Esterase Urine RBC Urine WBC Ur Squamous Epith Cells Amorphous Sediment Urine Bacteria Hyaline Casts Urine Mucus Micro UA Comment Ur Microscopic Review Urine Culture Comments Urine Osmolality Ur Random Creatinine Ur Random Sodium Ur Random Chloride Nasal Screen MRSA (PCR) Not detected Complement C3 Complement C4 12/25/17 01:05 EST WBC RBC Hgb Hct MCV MCH MCHC RDW Plt Count MPV Prelim Diff (Auto) Neut % (Auto) Lymph % (Auto) [place] % (Auto) Eos % (Auto) Baso % (Auto) Neut # (Auto) Lymph # (Auto) [place] # (Auto) Eos # (Auto) Baso # (Auto) WBC Differential Seg Neuts % (Manual) Band Neuts % (Manual) Lymphocytes % (Manual) Monocytes % (Manual) Metamyelocytes % (Man) Abs Neuts (Manual) Differential Comment Platelet Estimate Platelet Morphology Ovalocytes ESR Retic Count 0.6 Absolute Retic 17.5 L Sodium Potassium Chloride Carbon Dioxide Anion Gap BUN Creatinine Estimated GFR Random Glucose Osmolality Uric Acid Calcium Prot Corrected Calcium Phosphorus Magnesium Total Bilirubin AST ALT Alkaline Phosphatase Total Creatine Kinase CK-MB (CK-2) CK-MB (CK-2) % Troponin I C-Reactive Protein B-Natriuretic Peptide Total Protein Albumin Lipase TSH Cortisol Urine Color Urine Clarity Urine pH Ur Specific [place] Urine Protein Urine Glucose (UA) Urine Ketones Urine Occult Blood Urine Nitrate Urine Bilirubin Urine Urobilinogen Ur Leukocyte Esterase Urine RBC Urine WBC Ur Squamous Epith Cells Amorphous Sediment Urine Bacteria Hyaline Casts Urine Mucus Micro UA Comment Ur Microscopic Review Urine Culture Comments Urine Osmolality Ur Random Creatinine Ur Random Sodium Ur Random Chloride Nasal Screen MRSA (PCR) Complement C3 Complement C4 - Imaging Impressions Abdomen/Pelvis CT 12/24/17 16:21 CONCLUSION: 1. Nonspecific edema and small ascites. Nothing organized or drainable. Similar findings were seen previously. 2. No focal inflammatory changes are demonstrated. No obstruction. 3. Mild thickening of the interlobular septa of both lung bases suggesting mild pulmonary edema. Heart is enlarged. No pleural effusion. Previously seen pericardial effusion is no longer present. Chest X-Ray 12/24/17 20:53 CONCLUSION: No acute cardiopulmonary disease demonstrated. <Aj Duque - Last Filed: 12/25/17 11:02> - Labs CBC & Chem 7: 12/25/17 01:05 EST 12/25/17 11:52 Labs: Laboratory Results - last 24 hr 12/24/17 12/24/17 12/24/17 17:57 19:25 19:25 WBC RBC Hgb Hct MCV MCH MCHC RDW Plt Count MPV Prelim Diff (Auto) Neut % (Auto) Lymph % (Auto) [place] % (Auto) Eos % (Auto) Baso % (Auto) Neut # (Auto) Lymph # (Auto) [place] # (Auto) Eos # (Auto) Baso # (Auto) WBC Differential Seg Neuts % (Manual) Band Neuts % (Manual) Lymphocytes % (Manual) Monocytes % (Manual) Metamyelocytes % (Man) Abs Neuts (Manual) Differential Comment Platelet Estimate Platelet Morphology Ovalocytes ESR Retic Count Absolute Retic Sodium Potassium Chloride Carbon Dioxide Anion Gap BUN Creatinine Estimated GFR Random Glucose Osmolality 239 L Uric Acid Calcium Prot Corrected Calcium Phosphorus Magnesium Iron TIBC % Saturation Total Bilirubin AST ALT Alkaline Phosphatase Total Creatine Kinase CK-MB (CK-2) CK-MB (CK-2) % Troponin I C-Reactive Protein B-Natriuretic Peptide Total Protein Albumin Vitamin B12 Folate Cortisol 23.5 Urine Osmolality 441 Nasal Screen MRSA (PCR) Stl C.difficile DNA Amp St C. diff Tox Epid 027 Complement C3 Complement C4 12/24/17 12/24/17 12/24/17 19:25 19:25 19:25 WBC RBC Hgb Hct MCV MCH MCHC RDW Plt Count MPV Prelim Diff (Auto) Neut % (Auto) Lymph % (Auto) [place] % (Auto) Eos % (Auto) Baso % (Auto) Neut # (Auto) Lymph # (Auto) [place] # (Auto) Eos # (Auto) Baso # (Auto) WBC Differential Seg Neuts % (Manual) Band Neuts % (Manual) Lymphocytes % (Manual) Monocytes % (Manual) Metamyelocytes % (Man) Abs Neuts (Manual) Differential Comment Platelet Estimate Platelet Morphology Ovalocytes ESR Retic Count Absolute Retic Sodium 116 L* Potassium 3.7 Chloride 83 L Carbon Dioxide 21.7 Anion Gap 11 BUN 10 Creatinine 0.57 Estimated GFR Greater than 89 Random Glucose 115 H Osmolality Uric Acid 1.6 L Cancelled Calcium 6.7 L* Prot Corrected Calcium 7.4 L* Phosphorus Magnesium Iron TIBC % Saturation Total Bilirubin AST ALT Alkaline Phosphatase Total Creatine Kinase CK-MB (CK-2) CK-MB (CK-2) % Troponin I C-Reactive Protein B-Natriuretic Peptide 640 H Total Protein 5.6 L D Albumin Vitamin B12 Folate Cortisol Urine Osmolality Nasal Screen MRSA (PCR) Stl C.difficile DNA Amp St C. diff Tox Epid 027 Complement C3 Complement C4 12/24/17 12/24/17 12/24/17 19:25 19:25 19:25 WBC RBC Hgb Hct MCV MCH MCHC RDW Plt Count MPV Prelim Diff (Auto) Neut % (Auto) Lymph % (Auto) [place] % (Auto) Eos % (Auto) Baso % (Auto) Neut # (Auto) Lymph # (Auto) [place] # (Auto) Eos # (Auto) Baso # (Auto) WBC Differential Seg Neuts % (Manual) Band Neuts % (Manual) Lymphocytes % (Manual) Monocytes % (Manual) Metamyelocytes % (Man) Abs Neuts (Manual) Differential Comment Platelet Estimate Platelet Morphology Ovalocytes ESR Retic Count Absolute Retic Sodium Potassium Chloride Carbon Dioxide Anion Gap BUN Creatinine Estimated GFR Random Glucose Osmolality Uric Acid Calcium Prot Corrected Calcium Phosphorus Magnesium Iron TIBC % Saturation Total Bilirubin AST ALT Alkaline Phosphatase Total Creatine Kinase 211 H CK-MB (CK-2) 6.4 H CK-MB (CK-2) % 3.0 Troponin I 2.22 H* C-Reactive Protein Less than 0.29 B-Natriuretic Peptide Total Protein Albumin Vitamin B12 Folate Cortisol Urine Osmolality Nasal Screen MRSA (PCR) Stl C.difficile DNA Amp St C. diff Tox Epid 027 Complement C3 18 L Complement C4 12/24/17 12/24/17 12/25/17 19:25 23:30 01:05 EST WBC 1.7 L RBC 3.15 L Hgb 10.1 L Hct 28.5 L MCV 90.5 MCH 31.9 MCHC 35.3 RDW 11.9 Plt Count 95 L MPV 9.0 Prelim Diff (Auto) Slide review pending Neut % (Auto) 60.2 Lymph % (Auto) 19.1 [place] % (Auto) 19.9 H Eos % (Auto) 0.1 Baso % (Auto) 0.7 Neut # (Auto) 1.0 L Lymph # (Auto) 0.3 L [place] # (Auto) 0.3 Eos # (Auto) 0.0 Baso # (Auto) 0.0 WBC Differential Manual diff final Seg Neuts % (Manual) 67 Band Neuts % (Manual) 5 Lymphocytes % (Manual) 17 Monocytes % (Manual) 10 H Metamyelocytes % (Man) 1 Abs Neuts (Manual) 1.2 L Differential Comment . Platelet Estimate Low L Platelet Morphology Normal Ovalocytes 1+ H ESR 37 H Retic Count Absolute Retic Sodium Potassium Chloride Carbon Dioxide Anion Gap BUN Creatinine Estimated GFR Random Glucose Osmolality Uric Acid Calcium Prot Corrected Calcium Phosphorus Magnesium Iron TIBC % Saturation Total Bilirubin AST ALT Alkaline Phosphatase Total Creatine Kinase CK-MB (CK-2) CK-MB (CK-2) % Troponin I C-Reactive Protein B-Natriuretic Peptide Total Protein Albumin Vitamin B12 Folate Cortisol Urine Osmolality Nasal Screen MRSA (PCR) Not detected Stl C.difficile DNA Amp St C. diff Tox Epid 027 Complement C3 Complement C4 3 L 12/25/17 12/25/17 12/25/17 01:05 EST 01:05 EST 11:52 WBC RBC Hgb Hct MCV MCH MCHC RDW Plt Count MPV Prelim Diff (Auto) Neut % (Auto) Lymph % (Auto) [place] % (Auto) Eos % (Auto) Baso % (Auto) Neut # (Auto) Lymph # (Auto) [place] # (Auto) Eos # (Auto) Baso # (Auto) WBC Differential Seg Neuts % (Manual) Band Neuts % (Manual) Lymphocytes % (Manual) Monocytes % (Manual) Metamyelocytes % (Man) Abs Neuts (Manual) Differential Comment Platelet Estimate Platelet Morphology Ovalocytes ESR Retic Count 0.6 Absolute Retic 17.5 L Sodium 118 L* 120 L* Potassium 3.7 Chloride 86 L Carbon Dioxide 22.7 Anion Gap 9 BUN 9 Creatinine 0.65 Estimated GFR Greater than 89 Random Glucose 86 Osmolality Uric Acid Calcium 6.4 L* Prot Corrected Calcium 7.4 L* Phosphorus 3.4 Magnesium 1.6 Iron 43 L TIBC 186 L % Saturation 23.1 Total Bilirubin 0.3 AST 47 H ALT 26 Alkaline Phosphatase 43 L Total Creatine Kinase CK-MB (CK-2) CK-MB (CK-2) % Troponin I 2.44 H* D C-Reactive Protein B-Natriuretic Peptide Total Protein 5.1 L Albumin 2.0 L D Vitamin B12 Greater than 2000 H Folate Greater than 20.0 H Cortisol Urine Osmolality Nasal Screen MRSA (PCR) Stl C.difficile DNA Amp St C. diff Tox Epid 027 Complement C3 Complement C4 12/25/17 12:44 WBC RBC Hgb Hct MCV MCH MCHC RDW Plt Count MPV Prelim Diff (Auto) Neut % (Auto) Lymph % (Auto) [place] % (Auto) Eos % (Auto) Baso % (Auto) Neut # (Auto) Lymph # (Auto) [place] # (Auto) Eos # (Auto) Baso # (Auto) WBC Differential Seg Neuts % (Manual) Band Neuts % (Manual) Lymphocytes % (Manual) Monocytes % (Manual) Metamyelocytes % (Man) Abs Neuts (Manual) Differential Comment Platelet Estimate Platelet Morphology Ovalocytes ESR Retic Count Absolute Retic Sodium Potassium Chloride Carbon Dioxide Anion Gap BUN Creatinine Estimated GFR Random Glucose Osmolality Uric Acid Calcium Prot Corrected Calcium Phosphorus Magnesium Iron TIBC % Saturation Total Bilirubin AST ALT Alkaline Phosphatase Total Creatine Kinase CK-MB (CK-2) CK-MB (CK-2) % Troponin I C-Reactive Protein B-Natriuretic Peptide Total Protein Albumin Vitamin B12 Folate Cortisol Urine Osmolality Nasal Screen MRSA (PCR) Stl C.difficile DNA Amp Negative St C. diff Tox Epid 027 Negative Complement C3 Complement C4 - Imaging Impressions Chest X-Ray 12/24/17 20:53 CONCLUSION: No acute cardiopulmonary disease demonstrated. <Moira White - Last Filed: 12/25/17 19:24> Assessment and Plan - Plan - Diarrhea with nausea, anorexia, lethargy - Diarrhea progressively got worse over the last week, can have up to 12 loose stools a day, no melena or hematochezia. She has mild abdominal discomfort. Denies recent travel, abx use or sick contact. She never had EGD/colonoscopy before. She is still not very keen to having these done. Labs significant for hyponatremia, pancytopenia, high troponin. Abdomen/Pelvis CT 12/24/17 1. Nonspecific edema and small ascites. Nothing organized or drainable. Similar findings were seen previously. 2. No focal inflammatory changes are demonstrated. No obstruction. 3. Mild thickening of the interlobular septa of both lung bases suggesting mild pulmonary edema. Heart is enlarged. No pleural effusion. Previously seen pericardial effusion is no longer present. - systemic lupus erythematosus who was on prednisone and Plaquenil until the beginning of the yr, currently not on tx for this - Anemia- could anemia of chronic dz, no bleeding reported - Elevated AST, thrombocytopenia, low albumin, ascites- ?liver dz , pt doesn't drink, no previous hx of liver dz - pancytopenia per CCM - hyponatremia per CCm - Enlarged heart/high troponin - Cardiology on the case Plan: - Clears - Stools studies ordered but not done yet, pt hasn't had BM since admission - Discussed doing EGD/colonoscopy but pt is declining but will think about it She is not medically stable at this time - Correct electrolyte - Cardiology on the case - IV hydration - Supportive care - Further recommendations to follow pending hospital course - Pt seen and examined by Dr. White and myself and this note is written on her behalf. <Aj Duque - Last Filed: 12/25/17 11:02> - Attending Attestation seen, examined agree with above <Moira White - Last Filed: 12/25/17 19:24>
--- NOTE | 2017-12-25 13:12 | MB ---
cc: Kush Ahmadi MD DATE: 12/25/2017 REASON FOR CONSULTATION: Elevated troponin. HISTORY OF PRESENT ILLNESS: The patient is a very pleasant 67-year-old woman with history of lupus who has not been taking her lupus-related medication since early this year, presenting with a week of nausea, vomiting, diarrhea. As part of her initial workup, she had troponins drawn which were elevated, and thus I was consulted. The patient adamantly denies any cardiac symptoms such as chest pain, shortness of breath, lightheadedness, dizziness. PAST MEDICAL HISTORY: Lupus. CURRENT MEDICATIONS: 1. Tylenol. 2. Lovenox. 3. Zofran. ALLERGIES: MORPHINE. PHYSICAL EXAMINATION: VITAL SIGNS: Afebrile, pulse 56, respiratory rate 23, BP 130/74, saturating 96% on room air. GENERAL: Pleasant woman with a lupus-related malar rash, in no distress. NECK: No JVD. LUNGS: Clear to auscultation bilaterally. CARDIOVASCULAR: Regular rate and rhythm. No murmurs appreciated. ABDOMEN: Benign. EXTREMITIES: No edema. LABORATORY DATA: White count 1.7, hematocrit 28.5, platelets 95. Sodium 118, potassium 3.7, chloride 86, bicarbonate 22.7, BUN 9, creatinine 0.65. Troponin 2.2-2.4. BNP is slightly elevated at 640. EKG shows sinus rhythm with incomplete right bundle branch block, possible old anteroseptal infarct. No acute ST or T-wave changes present. IMPRESSION: Elevated troponin. The patient's only troponin is of questionable etiology given no convincing cardiac symptoms. I will have her undergo an echocardiogram to assess her left ventricular function. Once her electrolyte abnormalities have been corrected, she will require some form of ischemic testing. Whether it be a nuclear stress test or cardiac catheterization, that decision will be based on her clinical course and her echocardiogram. Thank you, again, for the opportunity to participate in the patient's care. Kush Ahmadi MD YANCY/ladarius , 11:11 AM , 11:17 AM
[2017-12-25 13:29] LABS: % Iron Saturation 23.1 % (20-50); Iron 43 mcg/dL (50-170); Total Iron Binding Capacity 186 mcg/dL (250-450)
[2017-12-25] MEDS ORDERED: Phenol 1.4% 180 ML Spray Bottle OROPHARYNG PRN (13:39)
[2017-12-25 14:11] LABS: Sodium 120 meq/L (136-145)
--- NOTE | 2017-12-25 14:51 | ECHRPT ---
Indication: HEART FAILURE CONCLUSIONS Normal left ventricular size. Mild concentric left ventricular hypertrophy. The left ventricular systolic function is normal with an estimated ejection fraction in the range of 60-65%. There is trace tricuspid valve regurgitation. The estimated pulmonary arterial pressure is 22 mmHg. Trivial pulmonary valve regurgitation. There is a small pericardial effusion present, chronic/fibrotic appearing. BP: / HR: Rhythm: MEASUREMENTS (Male / Female) Normal Values Technical Quality: 2D ECHO LV Diastolic Diameter PLAX 4.2 cm 4.2 - 5.9 / 3.9 - 5.3 cm LV Systolic Diameter PLAX 2.9 cm IVS Diastolic Thickness 1.5 cm 0.6 - 1.0 / 0.6 - 0.9 cm LVPW Diastolic Thickness 0.8 cm 0.6 - 1.0 / 0.6 - 0.9 cm LV Relative Wall Thickness 0.5 RV Internal Dim ED PLAX 2.0 cm M-MODE Aortic Root Diameter MM 3.4 cm AV Cusp Separation MM 1.9 cm DOPPLER Mitral E Point Velocity 53.3 cm/s Mitral A Point Velocity 54.3 cm/s Mitral E to A Ratio 1.0 TR Peak Velocity 168.0 cm/s TR Peak Gradient 11.3 mmHg Right Atrial Pressure 10.0 mmHg Pulmonary Artery Systolic Pressu 21.3 mmHg Right Ventricular Systolic Press 21.3 mmHg FINDINGS LEFT VENTRICLE Normal left ventricular size. Mild concentric left ventricular hypertrophy. The left ventricular systolic function is normal with an estimated ejection fraction in the range of 60-65%. RIGHT VENTRICLE Normal right ventricular size and systolic function. LEFT ATRIUM The left atrial size is normal. RIGHT ATRIUM The right atrial size is normal. ATRIAL SEPTUM Normal atrial septal thickness without atrial level shunting by limited color doppler interrogation. AORTA The aortic root and proximal ascending aorta are normal in size on limited imaging. MITRAL VALVE Structurally normal mitral valve. No mitral valve stenosis or regurgitation. AORTIC VALVE Trileaflet aortic valve. No aortic valve stenosis or regurgitation. TRICUSPID VALVE There is trace tricuspid valve regurgitation. The estimated pulmonary arterial pressure is 22 mmHg. PULMONARY VALVE Trivial pulmonary valve regurgitation. VESSELS The inferior vena cava is normal in size. PERICARDIUM There is a small pericardial effusion present. Kush Ahmadi MD (Electronically Signed) Final Date:25 December 2017 14:49
[2017-12-25] MEDS ORDERED: Potassium Chlor 40 mEq Premix 40 MEQ/100 ML PIGGYBACK IV.SIG PRN ×2 (17:50)
[2017-12-25] MEDS ORDERED: Potassium Phosphate Inj 30 MMOL in Sodium Chlor 0.9% Inj 250 ML IV.SIG PRN (17:50)
[2017-12-25] MEDS ORDERED: Magnesium Sulfate Inj 2 GM in Sodium Chlor 0.9% Inj 96 ML IV.SIG PRN (17:50)
[2017-12-25] MEDS ORDERED: Magnesium Sulfate Inj 4 GM in Sodium Chlor 0.9% Inj 92 ML IV.SIG PRN (17:50)
[2017-12-25] MEDS ORDERED: Potassium Phosphate 500 MG Soluble Tablet PO PRN ×2 (17:50)
[2017-12-25] MEDS ORDERED: Sodium Phosphate Inj 30 MMOL in Sodium Chlor 0.9% Inj 250 ML IV.SIG PRN (17:50)
[2017-12-25] MEDS ORDERED: Potassium Chlor 20 mEq Premix 20 MEQ/100 ML PIGGYBACK IV.SIG PRN ×2 (17:50)
[2017-12-25] MEDS ORDERED: Magnesium Oxide 400 MG Tablet PO PRN (17:50)
[2017-12-25] MEDS ORDERED: Potassium Chloride 25 MEQ Effervescent Tablet PO PRN (17:50)
--- NOTE | 2017-12-25 18:22 | P.PNCC ---
Subjective Subjective Remarks/Hospital Course: 67-year-old female with a past medical history of systemic lupus erythematosus who is not on any related medications. She states she was diagnosed in 2018 and is followed by Dr[address] Gaviria and Dr. Lu. She states that about 2 weeks ago she developed sore throat, nausea, anorexia, lethargy, and myalgias. She had vomiting NBNB earlier this week. Over the last 2 weeks she has had numerous diarrhea stools, liquid brown up to ten times per day, worse over the last 10 days. She has abdominal discomfort.. She has had chills, hasn' t checked her temperature. Today she had some cough productive of yellow/white sputum. No recent hospitalizations or antibiotic exposure. No travel, camping, drinking non-potable water. Her workup revealed sodium of 113,normal creatinine , pancytopenia. Denies h/o hyponatremia or cytopenias. She states she had routine lab work in october that was completely normal. Denies CP, SOB, FRIED. She received 2 L NS bolus in the ED as she reportedly looked very dry on arrival. She says malar rash has been present several months, denies joint pain or swelling. 12/25: Sodium has risen to 120, probably close to how far we want to go on one day. On reexamination of the patient later today I am fairly convinced her intravascular volume is still depleted. I am going to start an IV with hypotonic crystalloid solution and hopefully attenuate any further rise in sodium tonight. I think I will avoid desmopressin in the context of the elevated BNP. Objective Vital Signs / I&O: Vital Signs 12/24/17 21:02 12/24/17 21:30 12/24/17 21:32 Temperature Pulse Rate 78 77 Respiratory Rate 16 20 Blood Pressure 149/77 H 154/79 H Pulse Oximetry 94 L 94 L 12/24/17 21:45 12/24/17 21:57 12/24/17 22:00 Temperature 100 F H Pulse Rate 74 75 70 Respiratory Rate 16 22 21 Blood Pressure 149/77 H 159/78 H Pulse Oximetry 94 L 96 94 L 12/24/17 22:12 12/24/17 22:27 12/24/17 22:42 Temperature Pulse Rate 69 73 75 Respiratory Rate 21 19 35 H Blood Pressure 150/80 H 146/70 H 170/87 H Pulse Oximetry 93 L 96 93 L 12/24/17 22:57 12/24/17 23:00 12/24/17 23:12 Temperature Pulse Rate 67 66 71 Respiratory Rate 21 15 21 Blood Pressure 144/69 H 148/70 H Pulse Oximetry 93 L 94 L 95 12/24/17 23:27 12/24/17 23:42 12/24/17 23:57 Temperature Pulse Rate 71 63 60 Respiratory Rate 21 28 H 16 Blood Pressure 153/70 H 126/69 112/62 Pulse Oximetry 94 L 94 L 93 L 12/25/17 00:00 12/25/17 00:12 12/25/17 00:27 Temperature 99.5 F Pulse Rate 60 66 66 Respiratory Rate 20 27 H 15 Blood Pressure 161/80 H 139/73 Pulse Oximetry 92 L 94 L 95 12/25/17 00:42 12/25/17 00:57 12/25/17 01:00 EST Temperature Pulse Rate 71 70 69 Respiratory Rate 18 23 29 H Blood Pressure 140/71 160/70 H Pulse Oximetry 96 95 92 L 12/25/17 01:12 EST 12/25/17 01:27 EST 12/25/17 01:41 EST Temperature 99.5 F Pulse Rate 63 62 64 Respiratory Rate 10 L 10 L 13 Blood Pressure 102/58 L 102/58 L 132/67 Pulse Oximetry 93 L 94 L 94 L 12/25/17 01:42 EST 12/25/17 01:57 EST 12/25/17 02:00 Temperature Pulse Rate 59 L 63 63 Respiratory Rate 12 12 13 Blood Pressure 99/55 L 106/59 L Pulse Oximetry 94 L 92 L 94 L 12/25/17 02:12 12/25/17 02:27 12/25/17 02:42 Temperature Pulse Rate 59 L 59 L 59 L Respiratory Rate 0 L 15 16 Blood Pressure 102/57 L 123/67 125/70 Pulse Oximetry 95 97 98 12/25/17 02:57 12/25/17 03:00 12/25/17 03:27 Temperature Pulse Rate 65 65 58 L Respiratory Rate 19 34 H 12 Blood Pressure 148/78 H 114/60 Pulse Oximetry 98 98 93 L 12/25/17 03:42 12/25/17 03:57 12/25/17 04:00 Temperature Pulse Rate 58 L 57 L 56 L Respiratory Rate 12 12 12 Blood Pressure 102/56 L 95/52 L Pulse Oximetry 93 L 93 L 92 L 12/25/17 04:12 12/25/17 04:27 12/25/17 04:42 Temperature Pulse Rate 56 L 56 L 56 L Respiratory Rate 10 L 13 13 Blood Pressure 102/57 L 95/53 L 94/52 L Pulse Oximetry 95 94 L 94 L 12/25/17 04:57 12/25/17 05:00 12/25/17 05:12 Temperature Pulse Rate 56 L 56 L 60 Respiratory Rate 14 14 19 Blood Pressure 91/50 L 145/76 H Pulse Oximetry 93 L 93 L 97 12/25/17 05:27 12/25/17 05:42 12/25/17 05:57 Temperature Pulse Rate 58 L 57 L 57 L Respiratory Rate 15 11 L 10 L Blood Pressure 135/63 127/62 105/56 L Pulse Oximetry 96 96 96 12/25/17 06:00 12/25/17 06:12 12/25/17 06:27 Temperature Pulse Rate 57 L 57 L 55 L Respiratory Rate 9 L 13 13 Blood Pressure 95/54 L 84/50 L Pulse Oximetry 96 96 96 12/25/17 06:30 12/25/17 06:42 12/25/17 06:57 Temperature Pulse Rate 58 L 56 L 59 L Respiratory Rate 11 L 13 16 Blood Pressure 101/57 L 97/56 L 122/60 Pulse Oximetry 96 96 98 12/25/17 07:00 12/25/17 07:12 12/25/17 07:27 Temperature Pulse Rate 59 L 59 L 57 L Respiratory Rate 16 14 15 Blood Pressure 151/80 H 130/70 Pulse Oximetry 98 95 95 12/25/17 07:42 12/25/17 07:57 12/25/17 08:00 Temperature 97.9 F Pulse Rate 58 L 57 L 62 Respiratory Rate 14 13 24 Blood Pressure 135/77 137/76 Pulse Oximetry 92 L 94 L 95 12/25/17 08:12 12/25/17 08:27 12/25/17 08:42 Temperature Pulse Rate 58 L 59 L 58 L Respiratory Rate 12 13 20 Blood Pressure 114/58 L 100/56 L 102/55 L Pulse Oximetry 96 95 94 L 12/25/17 08:57 12/25/17 09:00 11/04/18 09:12 Temperature Pulse Rate 64 63 60 Respiratory Rate 22 21 10 L Blood Pressure 136/82 147/74 H Pulse Oximetry 98 98 95 12/25/17 09:27 12/25/17 09:42 12/25/17 09:57 Temperature Pulse Rate 61 63 61 Respiratory Rate 20 24 15 Blood Pressure 149/82 H 139/68 150/72 H Pulse Oximetry 97 97 97 12/25/17 10:00 12/25/17 10:12 12/25/17 10:27 Temperature Pulse Rate 59 L 59 L 65 Respiratory Rate 15 15 37 H Blood Pressure 122/70 142/72 H Pulse Oximetry 99 95 98 12/25/17 10:42 12/25/17 10:57 12/25/17 11:00 Temperature Pulse Rate 61 68 66 Respiratory Rate 23 21 23 Blood Pressure 127/67 138/74 Pulse Oximetry 99 95 96 12/25/17 11:12 12/25/17 11:27 12/25/17 11:42 Temperature Pulse Rate 61 61 58 L Respiratory Rate 19 12 12 Blood Pressure 137/78 130/74 121/68 Pulse Oximetry 99 96 95 12/25/17 11:57 12/25/17 12:00 12/25/17 12:12 Temperature 98.2 F Pulse Rate 61 61 62 Respiratory Rate 16 15 15 Blood Pressure 120/65 133/75 Pulse Oximetry 96 97 97 12/25/17 12:27 12/25/17 12:42 12/25/17 12:57 Temperature Pulse Rate 60 56 L 56 L Respiratory Rate 24 20 13 Blood Pressure 103/66 136/70 120/61 Pulse Oximetry 97 95 95 12/25/17 13:00 12/25/17 13:12 12/25/17 13:27 Temperature Pulse Rate 56 L 58 L 58 L Respiratory Rate 14 12 12 Blood Pressure 142/70 H 127/65 Pulse Oximetry 95 96 95 12/25/17 13:42 12/25/17 13:57 12/25/17 14:00 Temperature Pulse Rate 56 L 56 L 55 L Respiratory Rate 12 13 12 Blood Pressure 110/55 L 96/53 L Pulse Oximetry 93 L 94 L 93 L 12/25/17 14:12 12/25/17 14:27 12/25/17 14:42 Temperature Pulse Rate 56 L 56 L 65 Respiratory Rate 13 12 22 Blood Pressure 113/58 L 113/62 146/67 H Pulse Oximetry 94 L 96 97 12/25/17 14:57 12/25/17 15:00 12/25/17 15:12 Temperature Pulse Rate 65 62 62 Respiratory Rate 16 18 21 Blood Pressure 159/71 H 135/72 Pulse Oximetry 97 95 98 12/25/17 15:27 12/25/17 15:42 12/25/17 15:57 Temperature Pulse Rate 61 63 63 Respiratory Rate 21 19 24 Blood Pressure 141/71 H 136/80 143/74 H Pulse Oximetry 96 99 97 12/25/17 16:00 12/25/17 16:12 12/25/17 16:27 Temperature 98.8 F Pulse Rate 61 60 62 Respiratory Rate 16 13 18 Blood Pressure 135/69 130/63 Pulse Oximetry 96 96 98 Intake & Output 12/24/17 12/25/17 12/25/17 19:59 06:59 18:59 Intake Total 400 / 400 Balance 400 / 400 Weight Intake: IV 400 / 400 Calcium Gluconate Inj 2 GM In NS Inj 100 ML @ 120 mls/hr IV. SIG ONCE ONE Rx#:[id number] Maxipime Inj 2,000 MG In NS Inj 200 / 200 100 ML @ 200 mls/hr IV.SIG Q8H JONAS Rx#:[id number] NS Inj 1,000 ML @ 1000 mls/hr IV.SIG BOLUS JONAS Rx#:[id number] Flagyl 500 MG Inj 100 ML @ 100 200 / 200 mls/hr IV.SIG Q8H JONAS Rx#: [id number] Oral Other: # Voids Date of Last Bowel Movement 12/25/17 # Bowel Movements Weight On Admission Result Diagrams: 12/25/17 01:05 EST 12/25/17 11:52 Objective Remarks: Narrative: GENERAL: Thin, chronically ill-appearing patient SKIN: Warm and dry. Malar rash on cheeks. HEAD: Atraumatic. Normocephalic. EYES: Pupils equal and round. No scleral icterus. No injection or drainage. ENT: No nasal bleeding or discharge. NECK: Trachea midline. No meningismus. Airway widely patent, though sore throat to swallow CARDIOVASCULAR: Regular rate and rhythm. No murmurs rubs or gallops. Neck veins are flat RESPIRATORY: No accessory muscle use. Clear to auscultation. Breath sounds equal bilaterally. GASTROINTESTINAL: Abdomen soft, no peritoneal irritation or guarding. Bowel sounds present. MUSCULOSKELETAL: Extremities without clubbing, cyanosis, or edema. No obvious deformities. Well perfused. NEUROLOGICAL: Awake and alert. No obvious cranial nerve deficits. Motor grossly within normal limits. Normal speech. Assessment and Plan - Assessment and Plan Plan: NEURO: Tylenol as needed for pain RESP: On RA. 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 Cardiomegaly and mild edema noted on CT abd/pelvis report. Unable to pull up images on PACS currently. Troponin and BNP elevated. Bedside cardiac u/s showed ventricular hypertrophy but EF appears preserved. Will f/u formal Echo EKG showed incomplete RBBB and 1st degree AVB. Aspirin 325 mg now on 81 mg p.o. daily. Does not have ACS symptoms, will hold off on heparin at this time. Cardiology consult has seen GI: Diarrhea Pt reports [address] abd/pelvis - nonspecific edema and small ascites, seen previously. F/u stool C diff, Stool O and P, stool enteric pathogen PCR. Gastroenterology consult FEN/RENAL: Hyponatremia, chronic (>48 hours in onset) Proteinuria - on dipstick Received 2 L NS bolus in the ED. Having a difficult time determining intravascular volume status, however currently IVC appears collapsible and she does not appear volume overloaded despite BNP. BUN/creatinine normal so not significant pre-renal despite low FENa. . urines osm/serum uric and urine sodium could be consistent with SIADH. Sodium appears to be correcting on a slow trend, would want to avoid correction >8 MEQ/24 hours. Monitor sodium q6 hours. Start hypotonic crystalloid with potassium at 75/h ID: Initially felt symptoms may be viral. Influenza pending. Sent blood cultures. In view of worsening pancytopenia and ANC 1000 and low grade fever, added empiric coverage with cefepime and flagyl RHEUM: SLE - pancytopenia, proteinuria ?carditis - may be secondary to lupus flare. Check C3, C4, dsDNA Ab titer, ESR/CRP. Consider initiation of prednisone if infection ruled out. HEME: Pancytopenia retic, iron studies, b12, folate ENDO: Checked TSH and cortisol in view of hyponatremia, normal. PROPH: SCD for DVT prophylaxis. Lovenox 40 mg subcu daily, monitor and discontinue if platelet count less than 50. Protonix 40 mg p.o. daily ACCESS: Peripheral IV providing adequate access Patient is seriously ill with severe hyponatremia. Although this is asymptomatic she is undernourished and at risk for osmotic demyelination syndrome with overly rapid correction. Will require close monitoring in ICU with serial sodiums. Intravascular volume status is still a bit of a mystery to me because of conflict and data and labs. We will continue to gingerly correct the sodium, follow urine output, and review her culture results.
[2017-12-25] MEDS: KCL 20 mEq/D5W/NaCl 0.45% Inj 1,000 ML IV.CONT SCH (20:27)
[2017-12-25] MEDS: Enoxaparin Inj 40 MG/0.4 ML Syringe SQ SCH (21:37)
[2017-12-25] MEDS: Acetaminophen 325 MG Tablet PO PRN (22:28)
--- NOTE | 2017-12-25 22:39 | ECG ---
Date Performed: 12/25/2017 Time Performed: 06:16:04 PTAGE: 67 years EKG: Sinus bradycardia with 1st degree A-V block Prolonged QT interval Left axis deviation Incom plete RBBB Possible anterior infarct - age undetermined Generalized low QRS voltages Abnormal ECG PREVIOUS TRACING : 12/24/2017 17.48 Compared to previous tracing, QTc mildly prolonged DOCTOR: Bertin Barney Interpretating Date/Time 12/25/2017 22:38:12
--- NOTE | 2017-12-25 22:55 | ECG ---
Date Performed: 12/25/2017 Time Performed: 00:19:50 PTAGE: 67 years EKG: Sinus rhythm . Indeterminate axis Incomplete RBBB Possible anteroseptal infarct - age undetermined Generalized low QRS voltages Abnormal ECG Since the PREVIOUS TRACING , no significant change noted DOCTOR: Bertin Barney Interpretating Date/Time 12/25/2017 22:54:14
--- NOTE | 2017-12-25 23:23 | ECG ---
Date Performed: 12/24/2017 Time Performed: 17:48:38 PTAGE: 67 years EKG: Sinus rhythm WITH FIRST DEGREE AV BLOCK INDETERMINATE AXIS LOW QRS VOLTAGE IN EXTREMITY LEADS INCOMPLETE RIGHT BU NDLE BRANCH BLOCK LEFT POSTERIOR FASCICULAR BLOCK POSSIBLE ANTERIOR MYOCARDIAL INFARCTION ABNORMAL EC G PREVIOUS TRACING : 07/11/2015 03.26 Compared to previous tracing, no longer having ST/T wave c jamey DOCTOR: Bertin Barney Interpretating Date/Time 12/25/2017 23:21:21
[2017-12-26] MEDS: Chlorhexidine Gluconate 2% 1 Pack (2 Cloths) TOPICAL SCH (04:14)
[2017-12-26] MEDS: Acetaminophen 325 MG Tablet PO PRN ×2 (05:16→22:50)
--- NOTE | 2017-12-26 07:58 | P.PN ---
Subjective Interval history: Pt had a lot of GI sx o/n, no cardiac complaints. Physical Exam Vital signs: Vital Signs 12/25/17 08:00 12/25/17 08:12 12/25/17 08:27 Temperature 97.9 F Pulse Rate 62 58 L 59 L Respiratory Rate 24 12 13 Blood Pressure 137/76 114/58 L 100/56 L Pulse Oximetry 95 96 95 12/25/17 08:42 12/25/17 08:57 12/25/17 09:00 Temperature Pulse Rate 58 L 64 63 Respiratory Rate 20 22 21 Blood Pressure 102/55 L 136/82 Pulse Oximetry 94 L 98 98 12/25/17 09:12 12/25/17 09:27 12/25/17 09:42 Temperature Pulse Rate 60 61 63 Respiratory Rate 10 L 20 24 Blood Pressure 147/74 H 149/82 H 139/68 Pulse Oximetry 95 97 97 12/25/17 09:57 12/25/17 10:00 12/25/17 10:12 Temperature Pulse Rate 61 59 L 59 L Respiratory Rate 15 15 15 Blood Pressure 150/72 H 122/70 Pulse Oximetry 97 99 95 12/25/17 10:27 12/25/17 10:42 12/25/17 10:57 Temperature Pulse Rate 65 61 68 Respiratory Rate 37 H 23 21 Blood Pressure 142/72 H 127/67 138/74 Pulse Oximetry 98 99 95 12/25/17 11:00 12/25/17 11:12 12/25/17 11:27 Temperature Pulse Rate 66 61 61 Respiratory Rate 23 19 12 Blood Pressure 137/78 130/74 Pulse Oximetry 96 99 96 12/25/17 11:42 12/25/17 11:57 12/25/17 12:00 Temperature 98.2 F Pulse Rate 58 L 61 61 Respiratory Rate 12 16 15 Blood Pressure 121/68 120/65 Pulse Oximetry 95 96 97 12/25/17 12:12 12/25/17 12:27 12/25/17 12:42 Temperature Pulse Rate 62 60 56 L Respiratory Rate 15 24 20 Blood Pressure 133/75 103/66 136/70 Pulse Oximetry 97 97 95 12/25/17 12:57 12/25/17 13:00 12/25/17 13:12 Temperature Pulse Rate 56 L 56 L 58 L Respiratory Rate 13 14 12 Blood Pressure 120/61 142/70 H Pulse Oximetry 95 95 96 11/04/18 13:27 12/25/17 13:42 12/25/17 13:57 Temperature Pulse Rate 58 L 56 L 56 L Respiratory Rate 12 12 13 Blood Pressure 127/65 110/55 L 96/53 L Pulse Oximetry 95 93 L 94 L 12/25/17 14:00 12/25/17 14:12 12/25/17 14:27 Temperature Pulse Rate 55 L 56 L 56 L Respiratory Rate 12 13 12 Blood Pressure 113/58 L 113/62 Pulse Oximetry 93 L 94 L 96 12/25/17 14:42 12/25/17 14:57 12/25/17 15:00 Temperature Pulse Rate 65 65 62 Respiratory Rate 22 16 18 Blood Pressure 146/67 H 159/71 H Pulse Oximetry 97 97 95 12/25/17 15:12 12/25/17 15:27 12/25/17 15:42 Temperature Pulse Rate 62 61 63 Respiratory Rate 21 21 19 Blood Pressure 135/72 141/71 H 136/80 Pulse Oximetry 98 96 99 12/25/17 15:57 12/25/17 16:00 12/25/17 16:12 Temperature 98.8 F Pulse Rate 63 61 60 Respiratory Rate 24 16 13 Blood Pressure 143/74 H 135/69 Pulse Oximetry 97 96 96 12/25/17 16:27 12/25/17 17:00 12/25/17 17:15 Temperature Pulse Rate 62 58 L 64 Respiratory Rate 18 15 24 Blood Pressure 130/63 140/64 Pulse Oximetry 98 97 98 12/25/17 17:48 12/25/17 18:00 12/25/17 18:48 Temperature Pulse Rate 65 103 H 64 Respiratory Rate 25 H 37 H 16 Blood Pressure 137/65 154/75 H Pulse Oximetry 97 95 96 12/25/17 19:00 12/25/17 19:48 12/25/17 20:00 Temperature 98.9 F Pulse Rate 68 60 Respiratory Rate 20 16 Blood Pressure 123/80 125/80 Pulse Oximetry 96 98 96 12/25/17 20:48 12/25/17 21:00 12/25/17 21:48 Temperature Pulse Rate 55 L 52 L 60 Respiratory Rate 13 13 24 Blood Pressure 125/67 143/75 H Pulse Oximetry 95 95 93 L 12/25/17 22:00 12/25/17 22:48 12/25/17 22:58 Temperature Pulse Rate 57 L 63 Respiratory Rate 11 L 26 H 20 Blood Pressure 163/79 H Pulse Oximetry 96 99 12/25/17 23:00 12/25/17 23:48 12/26/17 00:00 Temperature 98.6 F Pulse Rate 63 54 L 53 L Respiratory Rate 27 H 13 13 Blood Pressure 93/51 L 93/51 L Pulse Oximetry 98 95 94 L 12/26/17 01:00 12/26/17 01:24 12/26/17 02:00 Temperature Pulse Rate 56 L 53 L 52 L Respiratory Rate 18 13 13 Blood Pressure 124/65 124/65 Pulse Oximetry 92 L 95 94 L 12/26/17 02:24 12/26/17 03:00 12/26/17 03:24 Temperature Pulse Rate 58 L 57 L 53 L Respiratory Rate 20 13 12 Blood Pressure 129/70 129/70 128/68 Pulse Oximetry 95 96 97 12/26/17 04:00 12/26/17 04:24 12/26/17 05:00 Temperature Pulse Rate 51 L 68 60 Respiratory Rate 10 L 28 H 11 L Blood Pressure 164/82 H Pulse Oximetry 95 98 97 12/26/17 05:59 12/26/17 06:00 Temperature Pulse Rate 60 60 Respiratory Rate 16 Blood Pressure 143/71 H Pulse Oximetry 98 Intake & Output 12/25/17 12/26/17 12/26/17 18:59 06:59 18:59 Intake Total 880 / 880 500 / 500 Output Total 500 / 500 Balance 880 / 880 0 / 0 Weight 48.9 kg Intake: IV 400 / 400 200 / 200 Maxipime Inj 2,000 MG In NS Inj 200 / 200 100 / 100 100 ML @ 200 mls/hr IV.SIG Q8H JONAS Rx#:[id number] Flagyl 500 MG Inj 100 ML @ 100 200 / 200 100 / 100 mls/hr IV.SIG Q8H JONAS Rx#: [id number] Oral 480 / 480 300 / 300 Output: Urine 500 / 500 Other: # Voids 2 Date of Last Bowel Movement 12/25/17 12/25/17 # Bowel Movements 1 - Constitutional no acute distress - Routine HEENT Exam Head: Present: normocephalic Eye: Present: EOMI ENT: Present: mucous membranes moist - Routine Neck Exam Present: supple. Absent: JVD - Routine Respiratory Exam Present: CTA bilaterally - Routine Abdominal Exam Present: soft - Routine Extremities Exam Absent: edema Results - Labs CBC & Chem 7: 12/25/17 01:05 EST 12/26/17 00:32 Laboratory Results - last 24 hr 12/25/17 12/25/17 12/25/17 11:52 12:44 19:10 Sodium 120 L* 118 L* Iron 43 L TIBC 186 L % Saturation 23.1 Vitamin B12 Greater than 2000 H Folate Greater than 20.0 H Stl C.difficile DNA Amp Negative St C. diff Tox Epid 027 Negative 12/26/17 00:32 Sodium 121 L* Iron TIBC % Saturation Vitamin B12 Folate Stl C.difficile DNA Amp St C. diff Tox Epid 027 Microbiology 12/24/17 23:23 Blood - Peripheral Aerobic Blood Culture - Preliminary No growth in 1 day 12/24/17 23:23 Blood - Peripheral Anaerobic Blood Culture - Preliminary No growth in 1 day 12/24/17 23:28 Blood - Peripheral Aerobic Blood Culture - Preliminary No growth in 1 day 12/24/17 23:28 Blood - Peripheral Anaerobic Blood Culture - Preliminary No growth in 1 day Assessment and Plan - Assessment (1) Elevated troponin Code(s): R74.8 - Abnormal levels of other serum enzymes Status: Acute Plan: normal LVEF by echo; suspect due to her metabolic derangements/stress of significant N/V; will plan for CTA coronary today; if normal will likely sign off
[2017-12-26] MEDS: KCL 20 mEq/D5W/NaCl 0.45% Inj 1,000 ML IV.CONT SCH ×2 (10:36→21:05)
--- NOTE | 2017-12-26 13:25 | P.PNGI ---
Subjective Interval history: Describes pain in the lower abdomen often known cramping sensation left and right lower quadrant. No nausea no vomiting, hungry, appetite improved Diarrhea subsided over the past 24 hours no BM since 12/26/2017 in the afternoon <CaryMadelyn M - Last Filed: 12/26/17 13:26> Physical Exam Vital signs: Vital Signs 12/25/17 13:27 12/25/17 13:42 12/25/17 13:57 Temperature Pulse Rate 58 L 56 L 56 L Respiratory Rate 12 12 13 Blood Pressure 127/65 110/55 L 96/53 L Pulse Oximetry 95 93 L 94 L 12/25/17 14:00 12/25/17 14:12 12/25/17 14:27 Temperature Pulse Rate 55 L 56 L 56 L Respiratory Rate 12 13 12 Blood Pressure 113/58 L 113/62 Pulse Oximetry 93 L 94 L 96 12/25/17 14:42 12/25/17 14:57 12/25/17 15:00 Temperature Pulse Rate 65 65 62 Respiratory Rate 22 16 18 Blood Pressure 146/67 H 159/71 H Pulse Oximetry 97 97 95 12/25/17 15:12 12/25/17 15:27 12/25/17 15:42 Temperature Pulse Rate 62 61 63 Respiratory Rate 21 21 19 Blood Pressure 135/72 141/71 H 136/80 Pulse Oximetry 98 96 99 12/25/17 15:57 12/25/17 16:00 12/25/17 16:12 Temperature 98.8 F Pulse Rate 63 61 60 Respiratory Rate 24 16 13 Blood Pressure 143/74 H 135/69 Pulse Oximetry 97 96 96 12/25/17 16:27 12/25/17 17:00 12/25/17 17:15 Temperature Pulse Rate 62 58 L 64 Respiratory Rate 18 15 24 Blood Pressure 130/63 140/64 Pulse Oximetry 98 97 98 12/25/17 17:48 12/25/17 18:00 12/25/17 18:48 Temperature Pulse Rate 65 103 H 64 Respiratory Rate 25 H 37 H 16 Blood Pressure 137/65 154/75 H Pulse Oximetry 97 95 96 12/25/17 19:00 12/25/17 19:48 12/25/17 20:00 Temperature 98.9 F Pulse Rate 68 60 Respiratory Rate 20 16 Blood Pressure 123/80 125/80 Pulse Oximetry 96 98 96 12/25/17 20:48 12/25/17 21:00 12/25/17 21:48 Temperature Pulse Rate 55 L 52 L 60 Respiratory Rate 13 13 24 Blood Pressure 125/67 143/75 H Pulse Oximetry 95 95 93 L 12/25/17 22:00 12/25/17 22:48 12/25/17 22:58 Temperature Pulse Rate 57 L 63 Respiratory Rate 11 L 26 H 20 Blood Pressure 163/79 H Pulse Oximetry 96 99 12/25/17 23:00 12/25/17 23:48 12/26/17 00:00 Temperature 98.6 F Pulse Rate 63 54 L 53 L Respiratory Rate 27 H 13 13 Blood Pressure 93/51 L 93/51 L Pulse Oximetry 98 95 94 L 12/26/17 01:00 12/26/17 01:24 12/26/17 02:00 Temperature Pulse Rate 56 L 53 L 52 L Respiratory Rate 18 13 13 Blood Pressure 124/65 124/65 Pulse Oximetry 92 L 95 94 L 12/26/17 02:24 12/26/17 03:00 12/26/17 03:24 Temperature Pulse Rate 58 L 57 L 53 L Respiratory Rate 20 13 12 Blood Pressure 129/70 129/70 128/68 Pulse Oximetry 95 96 97 12/26/17 04:00 12/26/17 04:24 12/26/17 05:00 Temperature Pulse Rate 51 L 68 60 Respiratory Rate 10 L 28 H 11 L Blood Pressure 164/82 H Pulse Oximetry 95 98 97 12/26/17 05:59 12/26/17 06:00 12/26/17 08:00 Temperature 98.3 F Pulse Rate 60 60 63 Respiratory Rate 16 14 Blood Pressure 143/71 H Pulse Oximetry 98 99 12/26/17 08:56 12/26/17 09:00 12/26/17 09:56 Temperature Pulse Rate 63 60 64 Respiratory Rate 14 11 L 17 Blood Pressure 170/83 H 150/80 H Pulse Oximetry 99 98 99 12/26/17 10:00 12/26/17 10:56 12/26/17 11:00 Temperature Pulse Rate 63 63 61 Respiratory Rate 13 16 13 Blood Pressure 160/77 H Pulse Oximetry 99 95 99 12/26/17 11:56 12/26/17 12:00 Temperature 98.5 F Pulse Rate 65 63 Respiratory Rate 19 14 Blood Pressure 166/101 H Pulse Oximetry 89 L 99 Intake & Output 12/25/17 12/26/17 12/26/17 18:59 06:59 18:59 Intake Total 880 / 880 500 / 500 1200 / 1200 Output Total 500 / 500 Balance 880 / 880 0 / 0 1200 / 1200 Weight 48.9 kg Intake: IV 400 / 400 200 / 200 1200 / 1200 D5W/1/2NS + KCL 20 mEq Inj 1, 1000 / 1000 000 ML @ 75 mls/hr IV.CONT . [id number] JONAS Rx#:[id number] Maxipime Inj 2,000 MG In NS Inj 200 / 200 100 / 100 100 / 100 100 ML @ 200 mls/hr IV.SIG Q8H JONAS Rx#:[id number] Flagyl 500 MG Inj 100 ML @ 100 200 / 200 100 / 100 100 / 100 mls/hr IV.SIG Q8H JONAS Rx#: [id number] Oral 480 / 480 300 / 300 Output: Urine 500 / 500 Other: # Voids 2 Date of Last Bowel Movement 12/25/17 12/25/17 # Bowel Movements 1 - Constitutional mild distress, chronically ill appearing, cooperative - Routine HEENT Exam Head: Present: normocephalic ENT: Present: mucous membranes dry - Routine Respiratory Exam Present: accessory muscle use - Routine Cardiovascular Exam Present: S1 (Even, unlabored), S2 - Routine Abdominal Exam Present: soft (, Mild discomfort left and right lower quadrant just below the umbilicus), normoactive bowel sounds, distended (No obvious distention) <Madelyn Townsend - Last Filed: 12/26/17 13:26> Vital signs: Vital Signs 12/25/17 18:48 12/25/17 19:00 12/25/17 19:48 Temperature Pulse Rate 64 68 Respiratory Rate 16 20 Blood Pressure 154/75 H 123/80 Pulse Oximetry 96 96 98 12/25/17 20:00 12/25/17 20:48 12/25/17 21:00 Temperature 98.9 F Pulse Rate 60 55 L 52 L Respiratory Rate 16 13 13 Blood Pressure 125/80 125/67 Pulse Oximetry 96 95 95 12/25/17 21:48 12/25/17 22:00 12/25/17 22:48 Temperature Pulse Rate 60 57 L 63 Respiratory Rate 24 11 L 26 H Blood Pressure 143/75 H 163/79 H Pulse Oximetry 93 L 96 99 12/25/17 22:58 12/25/17 23:00 12/25/17 23:48 Temperature Pulse Rate 63 54 L Respiratory Rate 20 27 H 13 Blood Pressure 93/51 L Pulse Oximetry 98 95 12/26/17 00:00 12/26/17 01:00 12/26/17 01:24 Temperature 98.6 F Pulse Rate 53 L 56 L 53 L Respiratory Rate 13 18 13 Blood Pressure 93/51 L 124/65 124/65 Pulse Oximetry 94 L 92 L 95 12/26/17 02:00 12/26/17 02:24 12/26/17 03:00 Temperature Pulse Rate 52 L 58 L 57 L Respiratory Rate 13 20 13 Blood Pressure 129/70 129/70 Pulse Oximetry 94 L 95 96 12/26/17 03:24 12/26/17 04:00 12/26/17 04:24 Temperature Pulse Rate 53 L 51 L 68 Respiratory Rate 12 10 L 28 H Blood Pressure 128/68 164/82 H Pulse Oximetry 97 95 98 12/26/17 05:00 12/26/17 05:59 12/26/17 06:00 Temperature Pulse Rate 60 60 60 Respiratory Rate 11 L 16 Blood Pressure 143/71 H Pulse Oximetry 97 98 12/26/17 08:00 12/26/17 08:56 12/26/17 09:00 Temperature 98.3 F Pulse Rate 65 63 60 Respiratory Rate 14 14 11 L Blood Pressure 170/83 H Pulse Oximetry 99 99 98 12/26/17 09:56 12/26/17 10:00 12/26/17 10:56 Temperature Pulse Rate 64 63 63 Respiratory Rate 17 13 16 Blood Pressure 150/80 H 160/77 H Pulse Oximetry 99 99 95 12/26/17 11:00 12/26/17 11:56 12/26/17 12:00 Temperature 98.5 F Pulse Rate 61 65 63 Respiratory Rate 13 19 14 Blood Pressure 166/101 H Pulse Oximetry 99 89 L 99 12/26/17 12:05 12/26/17 12:56 12/26/17 13:00 Temperature Pulse Rate 64 61 61 Respiratory Rate 15 15 15 Blood Pressure 158/79 H 160/83 H Pulse Oximetry 100 97 98 12/26/17 13:56 12/26/17 14:00 12/26/17 14:56 Temperature Pulse Rate 64 64 64 Respiratory Rate 15 19 20 Blood Pressure 160/85 H 163/83 H Pulse Oximetry 100 97 96 12/26/17 15:00 12/26/17 15:56 12/26/17 16:00 Temperature 97.9 F Pulse Rate 63 66 64 Respiratory Rate 18 19 13 Blood Pressure 163/83 H Pulse Oximetry 97 100 12/26/17 16:56 12/26/17 17:00 Temperature Pulse Rate 65 65 Respiratory Rate 14 12 Blood Pressure 162/81 H Pulse Oximetry 98 99 Intake & Output 12/25/17 12/26/17 12/26/17 18:59 06:59 18:59 Intake Total 880 / 880 500 / 500 1300 / 1300 Output Total 500 / 500 Balance 880 / 880 0 / 0 1300 / 1300 Weight 48.9 kg Intake: IV 400 / 400 200 / 200 1300 / 1300 D5W/1/2NS + KCL 20 mEq Inj 1, 1000 / 1000 000 ML @ 75 mls/hr IV.CONT . [id number] JONAS Rx#:[id number] Maxipime Inj 2,000 MG In NS Inj 200 / 200 100 / 100 200 / 200 100 ML @ 200 mls/hr IV.SIG Q8H JONAS Rx#:[id number] Flagyl 500 MG Inj 100 ML @ 100 200 / 200 100 / 100 100 / 100 mls/hr IV.SIG Q8H JONAS Rx#: [id number] Oral 480 / 480 300 / 300 Output: Urine 500 / 500 Other: # Voids 2 Date of Last Bowel Movement 12/25/17 12/25/17 12/25/17 # Bowel Movements 1 <Moira White - Last Filed: 12/26/17 18:03> Results - Labs CBC & Chem 7: 12/25/17 01:05 EST 12/26/17 07:59 Laboratory Results - last 24 hr 12/25/17 12/25/17 12/25/17 11:52 12:44 19:10 Sodium 120 L* 118 L* Iron 43 L TIBC 186 L % Saturation 23.1 Vitamin B12 Greater than 2000 H Folate Greater than 20.0 H Stl C.difficile DNA Amp Negative St C. diff Tox Epid 027 Negative 12/26/17 12/26/17 00:32 07:59 Sodium 121 L* 119 L* Iron TIBC % Saturation Vitamin B12 Folate Stl C.difficile DNA Amp St C. diff Tox Epid 027 Microbiology 12/24/17 23:23 Blood - Peripheral Aerobic Blood Culture - Preliminary No growth in 2 days 12/24/17 23:23 Blood - Peripheral Anaerobic Blood Culture - Preliminary No growth in 2 days 12/24/17 23:28 Blood - Peripheral Aerobic Blood Culture - Preliminary No growth in 2 days 12/24/17 23:28 Blood - Peripheral Anaerobic Blood Culture - Preliminary No growth in 2 days 12/25/17 12:44 Stool Cryptosporidium Antigen - Final Negative - No Cryptosporicium antigen detected In selected cases of patients with a history of immunosuppression or foreign travel, a full ova and parasites examination may be desired. Contact the microbiology lab if full workup is indicated and subit another specimen for testing. 12/25/17 12:44 Stool Giardia Antigen (EMILIA) - Final Negative - No Giardia Antigen detected In selected cases of patients with a history of immunosuppression or foreign travel, a full ova and parasites examination may be desired. Contact the microbiology lab if full workup is indicated and subit another specimen for testing. <Madelyn Townsend - Last Filed: 12/26/17 13:26> - Labs CBC & Chem 7: 12/25/17 01:05 EST 12/26/17 13:24 Laboratory Results - last 24 hr 12/25/17 12/26/17 12/26/17 19:10 00:32 07:59 Sodium 118 L* 121 L* 119 L* Magnesium C-Reactive Protein 12/26/17 12/26/17 12/26/17 13:24 13:24 17:13 Sodium 120 L* Magnesium 1.6 C-Reactive Protein Less than 0.29 Microbiology 12/24/17 23:23 Blood - Peripheral Aerobic Blood Culture - Preliminary No growth in 2 days 12/24/17 23:23 Blood - Peripheral Anaerobic Blood Culture - Preliminary No growth in 2 days 12/24/17 23:28 Blood - Peripheral Aerobic Blood Culture - Preliminary No growth in 2 days 12/24/17 23:28 Blood - Peripheral Anaerobic Blood Culture - Preliminary No growth in 2 days 12/25/17 12:44 Stool Cryptosporidium Antigen - Final Negative - No Cryptosporicium antigen detected In selected cases of patients with a history of immunosuppression or foreign travel, a full ova and parasites examination may be desired. Contact the microbiology lab if full workup is indicated and subit another specimen for testing. 12/25/17 12:44 Stool Giardia Antigen (EMILIA) - Final Negative - No Giardia Antigen detected In selected cases of patients with a history of immunosuppression or foreign travel, a full ova and parasites examination may be desired. Contact the microbiology lab if full workup is indicated and subit another specimen for testing. - Imaging Impressions Chest X-Ray 12/26/17 14:16 CONCLUSION: 1. Left basilar density and small left pleural effusion. 2. Hyperinflation characteristic of COPD. <Moira White - Last Filed: 12/26/17 18:03> Assessment and Plan - Plan - Diarrhea with nausea, anorexia, lethargy - Diarrhea progressively got worse over the last week, can have up to 12 loose stools a day, no melena or hematochezia. She has mild abdominal discomfort. Denies recent travel, abx use or sick contact. She never had EGD/colonoscopy before. She is still not very keen to having these done. Labs significant for hyponatremia, pancytopenia, high troponin. Abdomen/Pelvis CT 12/24/17 1. Nonspecific edema and small ascites. Nothing organized or drainable. Similar findings were seen previously. 2. No focal inflammatory changes are demonstrated. No obstruction. 3. Mild thickening of the interlobular septa of both lung bases suggesting mild pulmonary edema. Heart is enlarged. No pleural effusion. Previously seen pericardial effusion is no longer present. - systemic lupus erythematosus who was on prednisone and Plaquenil until the beginning of the yr, currently not on tx for this - Anemia- could anemia of chronic dz, no bleeding reported - Elevated AST, thrombocytopenia, low albumin, ascites- ?liver dz , pt doesn't drink, no previous hx of liver dz - pancytopenia per CCM - hyponatremia per CCm - Enlarged heart/high troponin - Cardiology on the case 12/26/2017 , labs reviewed, hemoglobin 10.1, WBC count 1.7 Loose diarrhea stools seem to be controlled now with Flagyl. Patient has no history of EGD or colonoscopy and states that she refuses both test. States she spoke to her PCP on the phone which thinks that her diarrhea may be related to hyponatremia and hypocalcemia, and low magnesium. Stool studies negative so far, enteric pathogens pending. Leukopenia with WBC count 1.3, history of systemic lupus, medication related Anemia possibly acute on chronic currently 10.1 patient denies any obvious hematemesis or rectal bleeding. Mild elevation in AST, could be related to medications versus fatty liver although there is no previous history of liver disease Plan: Diet clear liquids tolerating without any nausea or vomiting increased to full liquids, encouraged hydration appetite improving Patient refusing EGD or colonoscopy workup Monitor any further diarrhea stools, intake and output Transition to Flagyl p.o. Monitor bowel regimen as needed Further recommendations to follow Patient was seen per myself and Dr. White, note was written on her behalf <Madelyn Townsend - Last Filed: 12/26/17 13:26> - Attending Attestation agree with above <Moira White - Last Filed: 12/26/17 18:03>
[2017-12-26] MEDS: metroNIDAZOLE 500 MG Tablet PO SCH ×2 (14:29→21:06)
--- NOTE | 2017-12-26 14:44 | P.PNCC ---
Subjective Subjective Remarks/Hospital Course: 67-year-old female with a past medical history of systemic lupus erythematosus who is not on any related medications. She states she was diagnosed in 2018 and is followed by Dr[address] Gaviria and Dr. Lu. She states that about 2 weeks ago she developed sore throat, nausea, anorexia, lethargy, and myalgias. She had vomiting NBNB earlier this week. Over the last 2 weeks she has had numerous diarrhea stools, liquid brown up to ten times per day, worse over the last 10 days. She has abdominal discomfort.. She has had chills, hasn' t checked her temperature. Today she had some cough productive of yellow/white sputum. No recent hospitalizations or antibiotic exposure. No travel, camping, drinking non-potable water. Her workup revealed sodium of 113,normal creatinine , pancytopenia. Denies h/o hyponatremia or cytopenias. She states she had routine lab work in october that was completely normal. Denies CP, SOB, FRIED. She received 2 L NS bolus in the ED as she reportedly looked very dry on arrival. She says malar rash has been present several months, denies joint pain or swelling. 12/25: Sodium has risen to 120, probably close to how far we want to go on one day. On reexamination of the patient later today I am fairly convinced her intravascular volume is still depleted. I am going to start an IV with hypotonic crystalloid solution and hopefully attenuate any further rise in sodium tonight. I think I will avoid desmopressin in the context of the elevated BNP. 12/26: Sodium remains at 119 though clinically improved. I have increased normal saline to 120 ml per hour with frequent sodium checks. Also send cortisol level and TSH Objective Vital Signs / I&O: Vital Signs 12/25/17 14:27 12/25/17 14:42 12/25/17 14:57 Temperature Pulse Rate 56 L 65 65 Respiratory Rate 12 22 16 Blood Pressure 113/62 146/67 H 159/71 H Pulse Oximetry 96 97 97 12/25/17 15:00 12/25/17 15:12 12/25/17 15:27 Temperature Pulse Rate 62 62 61 Respiratory Rate 18 21 21 Blood Pressure 135/72 141/71 H Pulse Oximetry 95 98 96 12/25/17 15:42 11/04/18 15:57 12/25/17 16:00 Temperature 98.8 F Pulse Rate 63 63 61 Respiratory Rate 19 24 16 Blood Pressure 136/80 143/74 H Pulse Oximetry 99 97 96 12/25/17 16:12 12/25/17 16:27 12/25/17 17:00 Temperature Pulse Rate 60 62 58 L Respiratory Rate 13 18 15 Blood Pressure 135/69 130/63 Pulse Oximetry 96 98 97 12/25/17 17:15 12/25/17 17:48 12/25/17 18:00 Temperature Pulse Rate 64 65 103 H Respiratory Rate 24 25 H 37 H Blood Pressure 140/64 137/65 Pulse Oximetry 98 97 95 12/25/17 18:48 12/25/17 19:00 12/25/17 19:48 Temperature Pulse Rate 64 68 Respiratory Rate 16 20 Blood Pressure 154/75 H 123/80 Pulse Oximetry 96 96 98 12/25/17 20:00 12/25/17 20:48 12/25/17 21:00 Temperature 98.9 F Pulse Rate 60 55 L 52 L Respiratory Rate 16 13 13 Blood Pressure 125/80 125/67 Pulse Oximetry 96 95 95 12/25/17 21:48 12/25/17 22:00 12/25/17 22:48 Temperature Pulse Rate 60 57 L 63 Respiratory Rate 24 11 L 26 H Blood Pressure 143/75 H 163/79 H Pulse Oximetry 93 L 96 99 12/25/17 22:58 12/25/17 23:00 12/25/17 23:48 Temperature Pulse Rate 63 54 L Respiratory Rate 20 27 H 13 Blood Pressure 93/51 L Pulse Oximetry 98 95 12/26/17 00:00 12/26/17 01:00 12/26/17 01:24 Temperature 98.6 F Pulse Rate 53 L 56 L 53 L Respiratory Rate 13 18 13 Blood Pressure 93/51 L 124/65 124/65 Pulse Oximetry 94 L 92 L 95 12/26/17 02:00 12/26/17 02:24 12/26/17 03:00 Temperature Pulse Rate 52 L 58 L 57 L Respiratory Rate 13 20 13 Blood Pressure 129/70 129/70 Pulse Oximetry 94 L 95 96 12/26/17 03:24 12/26/17 04:00 12/26/17 04:24 Temperature Pulse Rate 53 L 51 L 68 Respiratory Rate 12 10 L 28 H Blood Pressure 128/68 164/82 H Pulse Oximetry 97 95 98 12/26/17 05:00 12/26/17 05:59 12/26/17 06:00 Temperature Pulse Rate 60 60 60 Respiratory Rate 11 L 16 Blood Pressure 143/71 H Pulse Oximetry 97 98 12/26/17 08:00 12/26/17 08:56 12/26/17 09:00 Temperature 98.3 F Pulse Rate 63 63 60 Respiratory Rate 14 14 11 L Blood Pressure 170/83 H Pulse Oximetry 99 99 98 12/26/17 09:56 12/26/17 10:00 12/26/17 10:56 Temperature Pulse Rate 64 63 63 Respiratory Rate 17 13 16 Blood Pressure 150/80 H 160/77 H Pulse Oximetry 99 99 95 12/26/17 11:00 12/26/17 11:56 12/26/17 12:00 Temperature 98.5 F Pulse Rate 61 65 63 Respiratory Rate 13 19 14 Blood Pressure 166/101 H Pulse Oximetry 99 89 L 99 Intake & Output 12/25/17 12/26/17 12/26/17 18:59 06:59 18:59 Intake Total 880 / 880 500 / 500 1200 / 1200 Output Total 500 / 500 Balance 880 / 880 0 / 0 1200 / 1200 Weight 48.9 kg Intake: IV 400 / 400 200 / 200 1200 / 1200 D5W/1/2NS + KCL 20 mEq Inj 1, 1000 / 1000 000 ML @ 75 mls/hr IV.CONT . [id number] JONAS Rx#:[id number] Maxipime Inj 2,000 MG In NS Inj 200 / 200 100 / 100 100 / 100 100 ML @ 200 mls/hr IV.SIG Q8H JONAS Rx#:[id number] Flagyl 500 MG Inj 100 ML @ 100 200 / 200 100 / 100 100 / 100 mls/hr IV.SIG Q8H JONAS Rx#: [id number] Oral 480 / 480 300 / 300 Output: Urine 500 / 500 Other: # Voids 2 Date of Last Bowel Movement 12/25/17 12/25/17 # Bowel Movements 1 Result Diagrams: 12/25/17 01:05 EST 12/26/17 07:59 Objective Remarks: GENERAL: Thin, chronically ill-appearing patient. SKIN: Warm and dry. Malar rash on cheeks. HEAD: Atraumatic. Normocephalic. EYES: Pupils equal and round. No scleral icterus. No injection or drainage. ENT: No nasal bleeding or discharge. NECK: Trachea midline. No meningismus. Airway widely patent, though sore throat to swallow CARDIOVASCULAR: Regular rate and rhythm. No murmurs rubs or gallops. Neck veins are flat RESPIRATORY: No accessory muscle use. Clear to auscultation. Breath sounds equal bilaterally. GASTROINTESTINAL: Abdomen soft, no peritoneal irritation or guarding. Bowel sounds present. MUSCULOSKELETAL: Extremities without clubbing, cyanosis, or edema. No obvious deformities. Well perfused. NEUROLOGICAL: Awake and alert. No obvious cranial nerve deficits. Motor grossly within normal limits. Normal speech. Assessment and Plan - Assessment and Plan Plan: NEURO: Tylenol as needed for pain RESP: On RA. CV: 2 D Echo: The left ventricular systolic function is normal with an estimated ejection fraction in the range of 60-65%. Cardiomegaly and mild edema noted on CT abd/pelvis report. Troponin and BNP elevated. Bedside cardiac u/s showed ventricular hypertrophy but EF appears preserved. EKG showed incomplete RBBB and 1st degree AVB. Aspirin 325 mg now on 81 mg p.o. daily. Does not have ACS symptoms, hold off on heparin at this time. Cardiology following GI: Diarrhea Pt reports [address] abd/pelvis - nonspecific edema and small ascites, seen previously. F/u stool C diff, Stool O and P, stool enteric pathogen PCR. Gastroenterology consult FEN/RENAL: Hyponatremia, chronic (>48 hours in onset) Proteinuria - on dipstick Received 2 L NS bolus in the ED. Having a difficult time determining intravascular volume status, however currently IVC appears collapsible and she does not appear volume overloaded despite BNP. BUN/creatinine normal so not significant pre-renal despite low FENa. Urines osm/serum uric and urine sodium could be consistent with SIADH. Sodium appears to be correcting on a slow trend , would want to avoid correction >8 MEQ/24 hours. Monitor sodium q6 hours. Hypertonic crystalloid with potassium at 75/h, increase to 125 mL/h ID: Initially felt symptoms may be viral. Follow up blood cultures. In view of worsening pancytopenia and ANC 1000 and low grade fever, added empiric coverage with cefepime and Flagyl RHEUM: SLE - pancytopenia, proteinuria ?carditis - may be secondary to lupus flare. Check C3, C4, dsDNA Ab titer, ESR/CRP. Consider initiation of prednisone if infection ruled out. Check CRP, ESR HEME: Pancytopenia retic, iron studies, b12, folate ENDO: Checked TSH and cortisol in view of hyponatremia, normal. PROPH: SCD for DVT prophylaxis. Lovenox 40 mg subcu daily, monitor and discontinue if platelet count less than 50. Protonix 40 mg p.o. daily ACCESS: Peripheral IV providing adequate access Patient is seriously ill with severe hyponatremia. Although this is asymptomatic she is undernourished and at risk for osmotic demyelination syndrome with overly rapid correction. Will require close monitoring in ICU with serial sodiums. Level 3 [facility] to assume care in am Code Status: Full
--- NOTE | 2017-12-26 15:08 | XR ---
EXAM DATE: 12/26/2017 2:52 PM EST AGE/SEX: 67 years / Female INDICATIONS: Respiratory distress. CLINICAL DATA: This is the patient's subsequent encounter. Patient reports that signs and symptoms h ave been present for 3 days and indicates a pain score of 0/10. MEDICAL/SURGICAL HISTORY: None. None. COMPARISON: [facility] – [place], CHEST 1V SINGLE AP, 12/24/2017. . FINDINGS: A single AP view of the chest demonstrates left basilar density and probable small pleural effusion. Heart borderline enlarged. Lungs are hyperinflated. The cardiomediastinal contours are unremarkable. Osseous structures are intact. CONCLUSION: 1. Left basilar density and small left pleural effusion. 2. Hyperinflation characteristic of COPD. Electronically signed by: Jhonatan Gutierrez MD 12/26/2017 3:07 PM EST
[2017-12-26] MEDS: Enoxaparin Inj 40 MG/0.4 ML Syringe SQ SCH (21:06)
[2017-12-27 00:45] LABS: Anion Gap 8 meq/L (5-15)
[2017-12-27 00:53] LABS: Alanine Aminotransferase 37 U/L (10-53); Albumin 1.8 g/dL (3.4-5.0); Alkaline Phosphatase 41 U/L (45-117); Aspartate Aminotransferase 63 U/L (15-37); Blood Urea Nitrogen 9 mg/dL (7-18); Calcium 6.3 mg/dL (8.5-10.1); Carbon Dioxide 21.7 meq/L (21.0-32.0); Chloride 87 meq/L (98-107); Glomerular Filtration Rate Greater Than 89 mL/min (>89); Glucose,Random 128 mg/dL (74-106); Potassium 3.8 meq/L (3.5-5.1)
[2017-12-27 00:56] LABS: Sodium 117 meq/L (136-145)
[2017-12-27] MEDS ORDERED: Sodium Bicarbonate 8.4% Inj 50 MEQ/50 ML Syringe IV.PUSH ONE (04:09)
[2017-12-27] MEDS ORDERED: Calcium Gluconate Inj 3 GM in Sodium Chlor 0.9% Inj 100 ML IV.SIG ONE (04:30)
[2017-12-27] MEDS: Sodium Chloride 23.4% Inj 188 MEQ in Sod Chloride 0.9% Inj 1,000 ML IV.CONT SCH ×2 (04:38→20:54)
[2017-12-27] MEDS: Chlorhexidine Gluconate 2% 1 Pack (2 Cloths) TOPICAL SCH (04:39)
[2017-12-27] MEDS: metroNIDAZOLE 500 MG Tablet PO SCH ×3 (05:12→21:21)
[2017-12-27 05:52] LABS: Hematocrit 33.4 % (35.0-46.0); Hemoglobin 11.6 gm/dL (11.6-15.3); Mean Corpuscular HGB Conc 34.8 % (32.0-36.0); Mean Corpuscular Hemoglobin 32.2 pg (27.0-34.0); Mean Corpuscular Volume 92.4 fL (80.0-100.0); Platelet Count 90 th/mm3 (150-450); Red Blood Count 3.61 mil/mm3 (4.00-5.30); White Blood Count 1.9 th/mm3 (4.0-11.0)
[2017-12-27 06:13] LABS: Magnesium 1.4 mg/dL (1.5-2.5)
--- NOTE | 2017-12-27 07:27 | P.PNCC ---
Subjective Subjective Remarks/Hospital Course: 67-year-old female with a past medical history of systemic lupus erythematosus who is not on any related medications. She states she was diagnosed in 2018 and is followed by Dr[address] Gaviria and Dr. Lu. She states that about 2 weeks ago she developed sore throat, nausea, anorexia, lethargy, and myalgias. She had vomiting NBNB earlier this week. Over the last 2 weeks she has had numerous diarrhea stools, liquid brown up to ten times per day, worse over the last 10 days. She has abdominal discomfort.. She has had chills, hasn' t checked her temperature. Today she had some cough productive of yellow/white sputum. No recent hospitalizations or antibiotic exposure. No travel, camping, drinking non-potable water. Her workup revealed sodium of 113,normal creatinine , pancytopenia. Denies h/o hyponatremia or cytopenias. She states she had routine lab work in october that was completely normal. Denies CP, SOB, FRIED. She received 2 L NS bolus in the ED as she reportedly looked very dry on arrival. She says malar rash has been present several months, denies joint pain or swelling. 12/25: Sodium has risen to 120, probably close to how far we want to go on one day. On reexamination of the patient later today I am fairly convinced her intravascular volume is still depleted. I am going to start an IV with hypotonic crystalloid solution and hopefully attenuate any further rise in sodium tonight. I think I will avoid desmopressin in the context of the elevated BNP. 12/26: Sodium remains at 119 though clinically improved. I have increased normal saline to 120 ml per hour with frequent sodium checks. Also send cortisol level and TSH 12/27: Sodium had decreased 216 unfortunately the fluid was D5 half-normal saline instead of normal saline. 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 Patient and primary care feels like symptoms are consistent with her lupus flareup. I will empirically treated with IV steroids and monitor response. Check CT angiogram of abdomen pelvis, chest Objective Vital Signs / I&O: Vital Signs 12/26/17 08:00 12/26/17 08:56 12/26/17 09:00 Temperature 98.3 F Pulse Rate 65 63 60 Respiratory Rate 14 14 11 L Blood Pressure 170/83 H Pulse Oximetry 99 99 98 12/26/17 09:56 12/26/17 10:00 12/26/17 10:56 Temperature Pulse Rate 64 63 63 Respiratory Rate 17 13 16 Blood Pressure 150/80 H 160/77 H Pulse Oximetry 99 99 95 12/26/17 11:00 12/26/17 11:56 12/26/17 12:00 Temperature 98.5 F Pulse Rate 61 65 63 Respiratory Rate 13 19 14 Blood Pressure 166/101 H Pulse Oximetry 99 89 L 99 12/26/17 12:05 12/26/17 12:56 12/26/17 13:00 Temperature Pulse Rate 64 61 61 Respiratory Rate 15 15 15 Blood Pressure 158/79 H 160/83 H Pulse Oximetry 100 97 98 12/26/17 13:56 12/26/17 14:00 12/26/17 14:56 Temperature Pulse Rate 64 64 64 Respiratory Rate 15 19 20 Blood Pressure 160/85 H 163/83 H Pulse Oximetry 100 97 96 12/26/17 15:00 12/26/17 15:56 12/26/17 16:00 Temperature 97.9 F Pulse Rate 63 66 64 Respiratory Rate 18 19 13 Blood Pressure 163/83 H Pulse Oximetry 97 100 12/26/17 16:56 12/26/17 17:00 12/26/17 17:56 Temperature Pulse Rate 65 65 67 Respiratory Rate 14 12 15 Blood Pressure 162/81 H 148/78 H Pulse Oximetry 98 99 96 12/26/17 18:00 12/26/17 18:56 12/26/17 19:00 Temperature Pulse Rate 67 65 64 Respiratory Rate 9 L 17 19 Blood Pressure 157/81 H Pulse Oximetry 98 100 98 12/26/17 19:56 12/26/17 20:00 12/26/17 20:56 Temperature 99.4 F Pulse Rate 62 64 65 Respiratory Rate 12 15 17 Blood Pressure 140/70 163/74 H Pulse Oximetry 100 99 97 12/26/17 21:00 12/26/17 21:56 12/26/17 22:00 Temperature Pulse Rate 72 65 65 Respiratory Rate 21 16 16 Blood Pressure 162/80 H Pulse Oximetry 97 98 100 12/26/17 22:56 12/26/17 23:00 12/26/17 23:56 Temperature 99.4 F Pulse Rate 68 69 65 Respiratory Rate 16 26 H 18 Blood Pressure 161/86 H 157/83 H Pulse Oximetry 98 98 98 12/27/17 00:00 12/27/17 00:56 12/27/17 01:00 Temperature 99.4 F Pulse Rate 65 72 70 Respiratory Rate 18 14 19 Blood Pressure 179/88 H Pulse Oximetry 98 99 99 12/27/17 01:56 12/27/17 02:00 12/27/17 02:56 Temperature Pulse Rate 68 66 65 Respiratory Rate 17 14 12 Blood Pressure 159/87 H 172/86 H Pulse Oximetry 99 99 100 12/27/17 03:00 12/27/17 03:56 12/27/17 04:00 Temperature 98.5 F Pulse Rate 66 63 65 Respiratory Rate 18 14 17 Blood Pressure 168/82 H Pulse Oximetry 99 100 98 12/27/17 04:56 12/27/17 05:00 12/27/17 05:56 Temperature Pulse Rate 65 68 68 Respiratory Rate 12 16 17 Blood Pressure 173/82 H 194/93 H Pulse Oximetry 98 99 99 12/27/17 06:00 12/27/17 06:05 Temperature Pulse Rate 70 68 Respiratory Rate 20 12 Blood Pressure 174/84 H Pulse Oximetry 97 96 Intake & Output 12/26/17 12/27/17 12/27/17 18:59 06:59 18:59 Intake Total 1900 / 1900 2039 Balance 1900 / 1900 2039 Weight 53.4 kg Intake: IV 1300 / 1300 1800 / 1800 D5W/1/2NS + KCL 20 mEq Inj 1, 1000 / 1000 1600 / 1600 000 ML @ 125 mls/hr IV.CONT . Q8H [facility] Rx#:[id number] Calcium Gluconate Inj 3 GM In 100 / 100 NS Inj 100 ML @ 120 mls/hr IV. SIG ONCE ONE Rx#:[id number] Maxipime Inj 2,000 MG In NS Inj 200 / 200 100 / 100 100 ML @ 200 mls/hr IV.SIG Q8H [facility] Rx#:[id number] Flagyl 500 MG Inj 100 ML @ 100 100 / 100 mls/hr IV.SIG Q8H [facility] Rx#: [id number] Oral 600 / 600 240 / 240 Other: # Voids 2 4 Date of Last Bowel Movement 12/25/17 12/27/17 # Bowel Movements 0 8 Result Diagrams: 12/27/17 05:26 12/27/17 05:26 Objective Remarks: GENERAL: Thin, chronically ill-appearing patient. SKIN: Warm and dry. Malar rash on cheeks. HEAD: Atraumatic. Normocephalic. EYES: Pupils equal and round. No scleral icterus. No injection or drainage. ENT: No nasal bleeding or discharge. NECK: Trachea midline. No meningismus. Airway widely patent, though sore throat to swallow CARDIOVASCULAR: Regular rate and rhythm. No murmurs rubs or gallops. Neck veins are flat RESPIRATORY: No accessory muscle use. Clear to auscultation. Breath sounds equal bilaterally. GASTROINTESTINAL: Abdomen soft, mild tenderness to palpation, no peritoneal irritation or guarding. Bowel sounds present. MUSCULOSKELETAL: Extremities without clubbing, cyanosis, or edema. No obvious deformities. Well perfused. NEUROLOGICAL: Awake and alert. No obvious cranial nerve deficits. Motor grossly within normal limits. Normal speech. Assessment and Plan - Assessment and Plan Plan: NEURO: Tylenol as needed for pain RESP: On RA. CV: Elevated troponin 2 D Echo: The left ventricular systolic function is normal with an estimated ejection fraction in the range of 60-65%. Cardiomegaly noted on CT abd/pelvis report. CTA chest ordered by Dr. Sevilla Troponin and BNP elevated. Bedside cardiac u/s showed ventricular hypertrophy but EF appears preserved. EKG showed incomplete RBBB and 1st degree AVB. Aspirin 325 mg now on 81 mg p.o. daily. Does not have ACS symptoms Cardiology following GI: Diarrhea Pt reports [address] abd/pelvis - nonspecific edema and small ascites, seen previously. Patient has refused colonoscopy per GI F/u stool C diff, Stool O and P, stool enteric pathogen PCR. Cryptosporidium Giardia and C. difficile negative Gastroenterology following FEN/RENAL: Hyponatremia, chronic (>48 hours in onset) Proteinuria - on dipstick Received 2 L NS bolus in the ED. Having a difficult time determining intravascular volume status, however currently IVC appears collapsible and she does not appear volume overloaded despite BNP. BUN/creatinine normal so not significant pre-renal despite low FENa. Urines osm/serum uric and urine sodium could be consistent with SIADH. Sodium appears to be correcting on a slow trend , would want to avoid correction >8 MEQ/24 hours. Monitor sodium q6 hours. Hypertonic crystalloid 2% saline at 60 l per hour ID: Initially felt symptoms may be viral. Follow up blood cultures. In view of worsening pancytopenia and ANC 1000 and low grade fever, added empiric coverage with cefepime and Flagyl RHEUM: SLE - pancytopenia, proteinuria ?carditis - may be secondary to lupus flare. Check C3, C4, dsDNA Ab titer, ESR/CRP. Start empiric steroids IV Solu-Medrol 60 mg every 8 hours Normal CRP, mildly elevated ESR HEME: Pancytopenia retic, iron studies, b12, folate ENDO: Cortisol and TSH essentially normal PROPH: SCD for DVT prophylaxis. Lovenox 40 mg subcu daily, monitor and discontinue if platelet count less than 50. Protonix 40 mg p.o. daily ACCESS: Peripheral IV providing adequate access Patient is seriously ill with severe hyponatremia. Although this is asymptomatic she is undernourished and at risk for osmotic demyelination syndrome with overly rapid correction. Will require close monitoring in ICU with serial sodiums. Level 3 [facility] to assume care in am 12/28/17. Dr. Sally ma
[2017-12-27] MEDS: MethylPREDNISolone Sod Succinate Inj 125 MG/2 ML Vial IV.PUSH SCH ×3 (08:18→23:06)
[2017-12-27] MEDS ORDERED: Labetalol HCl Inj 100 MG/20 ML Vial IV.PUSH PRN (09:01)
[2017-12-27] MEDS: Sucralfate Liq 1 GM/10 ML UDC PO SCH ×4 (09:46→20:12)
--- NOTE | 2017-12-27 12:57 | P.PN ---
Subjective Interval history: Pt still very uncomfortable generally, but no cardiac sx, she has declined further cardiac w/u Physical Exam Vital signs: Vital Signs 12/26/17 12:56 12/26/17 13:00 12/26/17 13:56 Temperature Pulse Rate 61 61 64 Respiratory Rate 15 15 15 Blood Pressure 160/83 H 160/85 H Pulse Oximetry 97 98 100 12/26/17 14:00 12/26/17 14:56 12/26/17 15:00 Temperature Pulse Rate 64 64 63 Respiratory Rate 19 20 18 Blood Pressure 163/83 H Pulse Oximetry 97 96 97 12/26/17 15:56 12/26/17 16:00 12/26/17 16:56 Temperature 97.9 F Pulse Rate 66 64 65 Respiratory Rate 19 13 14 Blood Pressure 163/83 H 162/81 H Pulse Oximetry 100 98 12/26/17 17:00 12/26/17 17:56 12/26/17 18:00 Temperature Pulse Rate 65 67 67 Respiratory Rate 12 15 9 L Blood Pressure 148/78 H Pulse Oximetry 99 96 98 12/26/17 18:56 12/26/17 19:00 12/26/17 19:56 Temperature Pulse Rate 65 64 62 Respiratory Rate 17 19 12 Blood Pressure 157/81 H 140/70 Pulse Oximetry 100 98 100 12/26/17 20:00 12/26/17 20:56 12/26/17 21:00 Temperature 99.4 F Pulse Rate 64 65 72 Respiratory Rate 15 17 21 Blood Pressure 163/74 H Pulse Oximetry 99 97 97 12/26/17 21:56 12/26/17 22:00 12/26/17 22:56 Temperature Pulse Rate 65 65 68 Respiratory Rate 16 16 16 Blood Pressure 162/80 H 161/86 H Pulse Oximetry 98 100 98 12/26/17 23:00 12/26/17 23:56 12/27/17 00:00 Temperature 99.4 F 99.4 F Pulse Rate 69 65 65 Respiratory Rate 26 H 18 18 Blood Pressure 157/83 H Pulse Oximetry 98 98 98 12/27/17 00:56 12/27/17 01:00 12/27/17 01:56 Temperature Pulse Rate 72 70 68 Respiratory Rate 14 19 17 Blood Pressure 179/88 H 159/87 H Pulse Oximetry 99 99 99 12/27/17 02:00 12/27/17 02:56 12/27/17 03:00 Temperature Pulse Rate 66 65 66 Respiratory Rate 14 12 18 Blood Pressure 172/86 H Pulse Oximetry 99 100 99 12/27/17 03:56 12/27/17 04:00 12/27/17 04:56 Temperature 98.5 F Pulse Rate 63 65 65 Respiratory Rate 14 17 12 Blood Pressure 168/82 H 173/82 H Pulse Oximetry 100 98 98 12/27/17 05:00 12/27/17 05:56 12/27/17 06:00 Temperature Pulse Rate 68 68 70 Respiratory Rate 16 17 20 Blood Pressure 194/93 H Pulse Oximetry 99 99 97 12/27/17 06:05 12/27/17 06:56 12/27/17 07:00 Temperature Pulse Rate 68 79 79 Respiratory Rate 12 23 23 Blood Pressure 174/84 H 191/115 H Pulse Oximetry 96 100 95 12/27/17 07:56 12/27/17 08:00 12/27/17 08:56 Temperature Pulse Rate 75 73 78 Respiratory Rate 20 16 21 Blood Pressure 193/93 H 184/86 H Pulse Oximetry 99 97 99 12/27/17 09:00 12/27/17 09:56 12/27/17 09:59 Temperature Pulse Rate 79 72 71 Respiratory Rate 21 17 18 Blood Pressure 198/93 H 169/92 H Pulse Oximetry 97 97 93 L 12/27/17 10:00 12/27/17 10:56 12/27/17 11:00 Temperature Pulse Rate 70 74 72 Respiratory Rate 15 17 17 Blood Pressure 187/88 H Pulse Oximetry 98 92 L 95 12/27/17 11:20 12/27/17 11:56 12/27/17 12:00 Temperature 98.1 F Pulse Rate 72 75 71 Respiratory Rate 15 30 H 20 Blood Pressure 153/74 H 163/79 H Pulse Oximetry 97 97 97 Intake & Output 12/26/17 12/27/17 12/27/17 18:59 06:59 18:59 Intake Total 1899 100 / 100 Balance 1899 100 / 100 Weight 53.4 kg Intake: IV 1300 / 1300 1800 / 1800 100 / 100 D5W/1/2NS + KCL 20 mEq Inj 1, 1000 / 1000 1600 / 1600 000 ML @ 125 mls/hr IV.CONT . Q8H [facility] Rx#:[id number] Calcium Gluconate Inj 3 GM In 100 / 100 NS Inj 100 ML @ 120 mls/hr IV. SIG ONCE ONE Rx#:[id number] Maxipime Inj 2,000 MG In NS Inj 200 / 200 100 / 100 100 / 100 100 ML @ 200 mls/hr IV.SIG Q8H [facility] Rx#:[id number] Flagyl 500 MG Inj 100 ML @ 100 100 / 100 mls/hr IV.SIG Q8H [facility] Rx#: [id number] Oral 600 / 600 240 / 240 Other: # Voids 2 4 Date of Last Bowel Movement 12/25/17 12/27/17 12/25/17 # Bowel Movements 0 8 - Constitutional no acute distress - Routine HEENT Exam Head: Present: normocephalic Eye: Present: EOMI ENT: Present: mucous membranes moist - Routine Neck Exam Absent: JVD - Routine Respiratory Exam Present: CTA bilaterally - Routine Cardiovascular Exam Present: RRR - Routine Extremities Exam Absent: edema Results - Labs CBC & Chem 7: 12/27/17 05:26 12/27/17 05:26 Laboratory Results - last 24 hr 12/26/17 12/26/17 12/26/17 13:24 13:24 17:13 WBC RBC Hgb Hct MCV MCH MCHC RDW Plt Count MPV ESR 33 H Sodium 120 L* Potassium Chloride Carbon Dioxide Anion Gap BUN Creatinine Estimated GFR Random Glucose Calcium Prot Corrected Calcium Magnesium Total Bilirubin AST ALT Alkaline Phosphatase C-Reactive Protein Less than 0.29 Total Protein Albumin Cortisol 12/26/17 12/26/17 12/26/17 17:13 17:13 17:13 WBC RBC Hgb Hct MCV MCH MCHC RDW Plt Count MPV ESR Sodium 119 L* Potassium Chloride Carbon Dioxide Anion Gap BUN Creatinine Estimated GFR Random Glucose Calcium Prot Corrected Calcium Magnesium 1.6 Total Bilirubin AST ALT Alkaline Phosphatase C-Reactive Protein Total Protein Albumin Cortisol 17.2 12/27/17 12/27/17 12/27/17 00:18 05:26 05:26 WBC 1.9 L RBC 3.61 L Hgb 11.6 Hct 33.4 L MCV 92.4 MCH 32.2 MCHC 34.8 RDW 12.0 Plt Count 90 L MPV 9.0 ESR Sodium 117 L* 116 L* Potassium 3.8 Chloride 87 L Carbon Dioxide 21.7 Anion Gap 8 BUN 9 Creatinine 0.64 Estimated GFR Greater than 89 Random Glucose 128 H Calcium 6.3 L* Prot Corrected Calcium 7.3 L* Magnesium 1.4 L Total Bilirubin 0.3 AST 63 H ALT 37 Alkaline Phosphatase 41 L C-Reactive Protein Total Protein 5.0 L Albumin 1.8 L Cortisol 12/27/17 10:23 WBC RBC Hgb Hct MCV MCH MCHC RDW Plt Count MPV ESR Sodium Cancelled Potassium Chloride Carbon Dioxide Anion Gap BUN Creatinine Estimated GFR Random Glucose Calcium Prot Corrected Calcium Magnesium Total Bilirubin AST ALT Alkaline Phosphatase C-Reactive Protein Total Protein Albumin Cortisol Microbiology 12/24/17 23:23 Blood - Peripheral Aerobic Blood Culture - Preliminary No growth in 3 days 12/24/17 23:23 Blood - Peripheral Anaerobic Blood Culture - Preliminary No growth in 3 days 12/24/17 23:28 Blood - Peripheral Aerobic Blood Culture - Preliminary No growth in 3 days 12/24/17 23:28 Blood - Peripheral Anaerobic Blood Culture - Preliminary No growth in 3 days 12/25/17 12:44 Stool Cryptosporidium Antigen - Final Negative - No Cryptosporicium antigen detected In selected cases of patients with a history of immunosuppression or foreign travel, a full ova and parasites examination may be desired. Contact the microbiology lab if full workup is indicated and subit another specimen for testing. 12/25/17 12:44 Stool Giardia Antigen (EMILIA) - Final Negative - No Giardia Antigen detected In selected cases of patients with a history of immunosuppression or foreign travel, a full ova and parasites examination may be desired. Contact the microbiology lab if full workup is indicated and subit another specimen for testing. - Imaging Impressions Chest X-Ray 12/26/17 14:16 CONCLUSION: 1. Left basilar density and small left pleural effusion. 2. Hyperinflation characteristic of COPD. Assessment and Plan - Assessment (1) Elevated troponin Code(s): R74.8 - Abnormal levels of other serum enzymes Status: Acute Plan: normal LVEF by echo; suspect due to her metabolic derangements/stress of significant N/V; she declines further cardiac testing/imaging; though I would like a formal ischemic w/u due to elevated trop, I also think the most likely cause of her trop elevation is due to her metabolic issues/general stress; if she reconsiders CTA pls call. - Attending Attestation Will sign off at this time, please call with questions.
--- NOTE | 2017-12-27 19:44 | P.PNGI ---
Subjective Interval history: Still abdominal pain, no further diarrhea .States Carafate worked.Awaiting dietary consult . 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 We will order us for mesenteric vessels Physical Exam Vital signs: Vital Signs 12/26/17 19:56 12/26/17 20:00 12/26/17 20:56 Temperature 99.4 F Pulse Rate 62 64 65 Respiratory Rate 12 15 17 Blood Pressure 140/70 163/74 H Pulse Oximetry 100 99 97 12/26/17 21:00 12/26/17 21:56 12/26/17 22:00 Temperature Pulse Rate 72 65 65 Respiratory Rate 21 16 16 Blood Pressure 162/80 H Pulse Oximetry 97 98 100 12/26/17 22:56 12/26/17 23:00 12/26/17 23:56 Temperature 99.4 F Pulse Rate 68 69 65 Respiratory Rate 16 26 H 18 Blood Pressure 161/86 H 157/83 H Pulse Oximetry 98 98 98 12/27/17 00:00 12/27/17 00:56 12/27/17 01:00 Temperature 99.4 F Pulse Rate 65 72 70 Respiratory Rate 18 14 19 Blood Pressure 179/88 H Pulse Oximetry 98 99 99 12/27/17 01:56 12/27/17 02:00 12/27/17 02:56 Temperature Pulse Rate 68 66 65 Respiratory Rate 17 14 12 Blood Pressure 159/87 H 172/86 H Pulse Oximetry 99 99 100 12/27/17 03:00 12/27/17 03:56 12/27/17 04:00 Temperature 98.5 F Pulse Rate 66 63 65 Respiratory Rate 18 14 17 Blood Pressure 168/82 H Pulse Oximetry 99 100 98 12/27/17 04:56 12/27/17 05:00 12/27/17 05:56 Temperature Pulse Rate 65 68 68 Respiratory Rate 12 16 17 Blood Pressure 173/82 H 194/93 H Pulse Oximetry 98 99 99 12/27/17 06:00 12/27/17 06:05 12/27/17 06:56 Temperature Pulse Rate 70 68 79 Respiratory Rate 20 12 23 Blood Pressure 174/84 H 191/115 H Pulse Oximetry 97 96 100 12/27/17 07:00 12/27/17 07:56 12/27/17 08:00 Temperature Pulse Rate 79 75 73 Respiratory Rate 23 20 16 Blood Pressure 193/93 H Pulse Oximetry 95 99 97 12/27/17 08:56 12/27/17 09:00 12/27/17 09:56 Temperature Pulse Rate 78 79 72 Respiratory Rate 21 21 17 Blood Pressure 184/86 H 198/93 H Pulse Oximetry 99 97 97 12/27/17 09:59 12/27/17 10:00 12/27/17 10:56 Temperature Pulse Rate 71 70 74 Respiratory Rate 18 15 17 Blood Pressure 169/92 H 187/88 H Pulse Oximetry 93 L 98 92 L 12/27/17 11:00 12/27/17 11:20 12/27/17 11:56 Temperature Pulse Rate 72 72 75 Respiratory Rate 17 15 30 H Blood Pressure 153/74 H 163/79 H Pulse Oximetry 95 97 97 12/27/17 12:00 12/27/17 12:56 12/27/17 13:00 Temperature 98.1 F Pulse Rate 71 66 67 Respiratory Rate 20 15 16 Blood Pressure 174/92 H Pulse Oximetry 97 99 97 12/27/17 13:56 12/27/17 14:00 12/27/17 14:56 Temperature Pulse Rate 68 70 67 Respiratory Rate 15 16 16 Blood Pressure 173/94 H 170/87 H Pulse Oximetry 96 97 97 12/27/17 15:00 12/27/17 15:56 12/27/17 16:00 Temperature 97.8 F Pulse Rate 69 62 63 Respiratory Rate 16 15 16 Blood Pressure 149/79 H Pulse Oximetry 98 98 96 12/27/17 16:56 12/27/17 17:00 12/27/17 17:56 Temperature Pulse Rate 66 66 67 Respiratory Rate 16 12 23 Blood Pressure 151/74 H 162/80 H Pulse Oximetry 97 96 96 12/27/17 18:00 Temperature Pulse Rate 67 Respiratory Rate 20 Blood Pressure Pulse Oximetry 95 Intake & Output 12/27/17 12/27/17 12/28/17 06:59 18:59 06:59 Intake Total 2039 700 / 700 Balance 2039 700 / 700 Weight 53.4 kg Intake: IV 1800 / 1800 200 / 200 D5W/1/2NS + KCL 20 mEq Inj 1, 1600 / 1600 000 ML @ 125 mls/hr IV.CONT . Q8H [facility] Rx#:[id number] Calcium Gluconate Inj 3 GM In 100 / 100 NS Inj 100 ML @ 120 mls/hr IV. SIG ONCE ONE Rx#:[id number] Maxipime Inj 2,000 MG In NS Inj 100 / 100 200 / 200 100 ML @ 200 mls/hr IV.SIG Q8H [facility] Rx#:[id number] Oral 240 / 240 500 / 500 Other: # Voids 4 5 Date of Last Bowel Movement 12/27/17 12/25/17 # Bowel Movements 8 4 - Constitutional no acute distress - Routine HEENT Exam Head: Present: normocephalic Eye: Present: EOMI (skin rash on nose and face ) - Routine Neck Exam Present: supple - Routine Cardiovascular Exam Present: RRR - Routine Abdominal Exam Present: soft, tenderness, distended - Routine Extremities Exam Present: full ROM, pulses intact - Routine Skin Exam Present: erythema, lesions, rash - Routine Neurological Exam Present: alert, oriented X3 - Detailed Neurological Exam: Coma Scale Eye Opening: Spontaneous - Routine Psychiatric Exam Present: normal affect Results - Labs CBC & Chem 7: 12/27/17 05:26 12/27/17 16:38 Laboratory Results - last 24 hr 12/27/17 12/27/17 12/27/17 00:18 05:26 05:26 WBC 1.9 L RBC 3.61 L Hgb 11.6 Hct 33.4 L MCV 92.4 MCH 32.2 MCHC 34.8 RDW 12.0 Plt Count 90 L MPV 9.0 Sodium 117 L* 116 L* Potassium 3.8 Chloride 87 L Carbon Dioxide 21.7 Anion Gap 8 BUN 9 Creatinine 0.64 Estimated GFR Greater than 89 Random Glucose 128 H Calcium 6.3 L* Prot Corrected Calcium 7.3 L* Magnesium 1.4 L Total Bilirubin 0.3 AST 63 H ALT 37 Alkaline Phosphatase 41 L Total Protein 5.0 L Albumin 1.8 L 12/27/17 12/27/17 10:23 16:38 WBC RBC Hgb Hct MCV MCH MCHC RDW Plt Count MPV Sodium 119 L* 119 L* Potassium Chloride Carbon Dioxide Anion Gap BUN Creatinine Estimated GFR Random Glucose Calcium Prot Corrected Calcium Magnesium Total Bilirubin AST ALT Alkaline Phosphatase Total Protein Albumin Microbiology 12/25/17 12:44 Stool Enteric Pathogens (PCR) - Final No enteric pathogens detected by PCR (No Salmonella sp., Shigella sp., Campylobacter sp., Yersinia enterocolitica, Vibrio sp., Norovirus, or EHEC (Shiga Toxin 1 or Shiga Toxin 2) detected. 12/24/17 23:23 Blood - Peripheral Aerobic Blood Culture - Preliminary No growth in 3 days 12/24/17 23:23 Blood - Peripheral Anaerobic Blood Culture - Preliminary No growth in 3 days 12/24/17 23:28 Blood - Peripheral Aerobic Blood Culture - Preliminary No growth in 3 days 12/24/17 23:28 Blood - Peripheral Anaerobic Blood Culture - Preliminary No growth in 3 days Assessment and Plan - Attending Attestation diarrhea -improving , stool studies negative so far abdominal pain, distension concern for vasculitis - cta recommended by multiple consultants -refusing for now multiple electrolytes abnormality -improving slowly pancytopenia -possible secondary lupus Recommendations egd/colonoscopy if agrees abdominal us-mesenteric vessels cta strongly recommended await dietary consult ppi, Carafate
[2017-12-27] MEDS: Enoxaparin Inj 40 MG/0.4 ML Syringe SQ SCH (20:12)
[2017-12-28 03:43] LABS: Hematocrit 34.6 % (35.0-46.0); Hemoglobin 11.9 gm/dL (11.6-15.3); Mean Corpuscular HGB Conc 34.3 % (32.0-36.0); Mean Corpuscular Hemoglobin 31.5 pg (27.0-34.0); Mean Corpuscular Volume 91.9 fL (80.0-100.0); Mean Platelet Volume 9.8 fL (7.0-11.0); Platelet Count 99 th/mm3 (150-450); Red Blood Count 3.77 mil/mm3 (4.00-5.30); White Blood Count 1.2 th/mm3 (4.0-11.0)
[2017-12-28] MEDS: Chlorhexidine Gluconate 2% 1 Pack (2 Cloths) TOPICAL SCH (04:16)
[2017-12-28 04:18] LABS: Alanine Aminotransferase 63 U/L (10-53); Albumin 1.9 g/dL (3.4-5.0); Alkaline Phosphatase 46 U/L (45-117); Anion Gap 12 meq/L (5-15); Aspartate Aminotransferase 106 U/L (15-37); Blood Urea Nitrogen 10 mg/dL (7-18); Calcium 6.8 mg/dL (8.5-10.1); Carbon Dioxide 19.3 meq/L (21.0-32.0); Chloride 91 meq/L (98-107); Glomerular Filtration Rate Greater Than 89 mL/min (>89); Glucose,Random 147 mg/dL (74-106); Magnesium 1.8 mg/dL (1.5-2.5); Potassium 3.5 meq/L (3.5-5.1); Total Protein 5.6 g/dL (6.4-8.2)
[2017-12-28 04:27] LABS: Sodium 122 meq/L (136-145)
[2017-12-28] MEDS: metroNIDAZOLE 500 MG Tablet PO SCH ×3 (06:16→22:13)
[2017-12-28] MEDS: Sodium Chloride 23.4% Inj 188 MEQ in Sod Chloride 0.9% Inj 1,000 ML IV.CONT SCH (06:16)
[2017-12-28] MEDS: Sucralfate Liq 1 GM/10 ML UDC PO SCH ×4 (08:48→22:13)
[2017-12-28] MEDS: MethylPREDNISolone Sod Succinate Inj 125 MG/2 ML Vial IV.PUSH SCH ×3 (08:48→23:13)
--- NOTE | 2017-12-28 09:20 | P.PNIM ---
Subjective Interval history: f/u; hyponatremia/ abdominal pain/ elevated troponin in no acute distress. abdominal pain and diarrhea is better. no chest pain or sob. afebrile. sodium level trend noted. d/w the family and RN at the bedside. Physical Exam Vital signs: Vital Signs 12/27/17 09:56 12/27/17 09:59 12/27/17 10:00 Temperature Pulse Rate 72 71 70 Respiratory Rate 17 18 15 Blood Pressure 198/93 H 169/92 H Pulse Oximetry 97 93 L 98 12/27/17 10:56 12/27/17 11:00 12/27/17 11:20 Temperature Pulse Rate 74 72 72 Respiratory Rate 17 17 15 Blood Pressure 187/88 H 153/74 H Pulse Oximetry 92 L 95 97 12/27/17 11:56 12/27/17 12:00 12/27/17 12:56 Temperature 98.1 F Pulse Rate 75 71 66 Respiratory Rate 30 H 20 15 Blood Pressure 163/79 H 174/92 H Pulse Oximetry 97 97 99 12/27/17 13:00 12/27/17 13:56 12/27/17 14:00 Temperature Pulse Rate 67 68 70 Respiratory Rate 16 15 16 Blood Pressure 173/94 H Pulse Oximetry 97 96 97 12/27/17 14:56 12/27/17 15:00 12/27/17 15:56 Temperature Pulse Rate 67 69 62 Respiratory Rate 16 16 15 Blood Pressure 170/87 H 149/79 H Pulse Oximetry 97 98 98 12/27/17 16:00 12/27/17 16:56 12/27/17 17:00 Temperature 97.8 F Pulse Rate 63 66 66 Respiratory Rate 16 16 12 Blood Pressure 151/74 H Pulse Oximetry 96 97 96 12/27/17 17:56 12/27/17 18:00 12/27/17 18:56 Temperature Pulse Rate 67 67 66 Respiratory Rate 23 20 16 Blood Pressure 162/80 H 154/75 H Pulse Oximetry 96 95 96 12/27/17 19:00 12/27/17 19:56 12/27/17 20:00 Temperature 98.3 F Pulse Rate 65 73 68 Respiratory Rate 21 27 H 16 Blood Pressure 156/84 H Pulse Oximetry 97 99 97 12/27/17 20:56 12/27/17 21:00 12/27/17 21:56 Temperature Pulse Rate 61 60 71 Respiratory Rate 12 12 12 Blood Pressure 118/65 172/80 H Pulse Oximetry 93 L 95 96 12/27/17 22:00 12/27/17 22:56 12/27/17 23:00 Temperature Pulse Rate 72 65 66 Respiratory Rate 20 25 H 18 Blood Pressure 145/82 H Pulse Oximetry 94 L 95 94 L 12/27/17 23:56 12/28/17 00:00 12/28/17 00:56 Temperature 98.3 F Pulse Rate 71 68 61 Respiratory Rate 16 8 L 11 L Blood Pressure 160/77 H 108/57 L Pulse Oximetry 94 L 94 L 93 L 12/28/17 01:00 12/28/17 01:56 12/28/17 01:57 Temperature Pulse Rate 62 68 67 Respiratory Rate 0 L 21 23 Blood Pressure 189/93 H 172/93 H Pulse Oximetry 92 L 96 96 12/28/17 02:00 12/28/17 02:56 12/28/17 03:00 Temperature Pulse Rate 67 64 62 Respiratory Rate 15 18 24 Blood Pressure 158/76 H Pulse Oximetry 95 97 93 L 12/28/17 03:56 12/28/17 04:00 12/28/17 04:56 Temperature 98.5 F Pulse Rate 64 63 61 Respiratory Rate 13 14 13 Blood Pressure 166/83 H 160/79 H Pulse Oximetry 94 L 94 L 94 L 12/28/17 05:00 12/28/17 05:56 12/28/17 06:00 Temperature Pulse Rate 60 58 L 65 Respiratory Rate 13 14 27 H Blood Pressure 143/74 H Pulse Oximetry 94 L 93 L 92 L 12/28/17 06:56 12/28/17 07:00 12/28/17 07:56 Temperature Pulse Rate 58 L 58 L 67 Respiratory Rate 13 13 24 Blood Pressure 108/64 188/95 H Pulse Oximetry 93 L 92 L 98 12/28/17 08:00 12/28/17 08:02 12/28/17 08:24 Temperature 97.6 F Pulse Rate 69 82 62 Respiratory Rate 24 24 12 Blood Pressure 198/92 H 156/79 H Pulse Oximetry 97 95 93 L Intake & Output 12/27/17 12/28/17 12/28/17 18:59 06:59 18:59 Intake Total 700 / 700 2414 / 2414 Balance 700 / 700 2414 / 2414 Weight 53.3 kg Intake: IV 200 / 200 2294 / 2294 Sodium Chloride 23.4% Inj 188 2094 / 2094 MEQ In NS Inj 1,000 ML @ 60 mls /hr IV.CONT .[id number] [facility] Rx#: [id number] Maxipime Inj 2,000 MG In NS Inj 200 / 200 100 / 100 100 ML @ 200 mls/hr IV.SIG Q8H [facility] Rx#:[id number] Magnesium Sulfate Inj 2 GM In 100 / 100 NS Inj 96 ML @ 50 mls/hr IV.SIG UNSCH PR[facility] Rx#:[id number] Oral 500 / 500 120 / 120 Other: # Voids 5 4 Date of Last Bowel Movement 12/25/17 12/27/17 12/25/17 # Bowel Movements 4 0 - Constitutional no acute distress - Routine Respiratory Exam Present: CTA bilaterally - Routine Cardiovascular Exam Present: RRR - Routine Abdominal Exam Present: soft - Routine Extremities Exam Comments: no pedal edema. - Routine Neurological Exam Present: alert, oriented X3 Results - Labs CBC & Chem 7: 12/28/17 03:17 12/28/17 03:17 Laboratory Results - last 24 hr 12/27/17 12/27/17 12/27/17 10:23 16:38 23:27 WBC RBC Hgb Hct MCV MCH MCHC RDW Plt Count MPV Sodium 119 L* 119 L* 121 L* Potassium Chloride Carbon Dioxide Anion Gap BUN Creatinine Estimated GFR Random Glucose Calcium Prot Corrected Calcium Magnesium Total Bilirubin AST ALT Alkaline Phosphatase Total Protein Albumin 12/28/17 12/28/17 12/28/17 03:17 03:17 03:17 WBC 1.2 L RBC 3.77 L Hgb 11.9 Hct 34.6 L MCV 91.9 MCH 31.5 MCHC 34.3 RDW 12.0 Plt Count 99 L MPV 9.8 Sodium 122 L* Cancelled Potassium 3.5 Chloride 91 L Carbon Dioxide 19.3 L Anion Gap 12 BUN 10 Creatinine 0.62 Estimated GFR Greater than 89 Random Glucose 147 H Calcium 6.8 L* Prot Corrected Calcium 7.6 L Magnesium 1.8 Total Bilirubin 0.3 AST 106 H ALT 63 H Alkaline Phosphatase 46 Total Protein 5.6 L D Albumin 1.9 L Microbiology 12/25/17 12:44 Stool Enteric Pathogens (PCR) - Final No enteric pathogens detected by PCR (No Salmonella sp., Shigella sp., Campylobacter sp., Yersinia enterocolitica, Vibrio sp., Norovirus, or EHEC (Shiga Toxin 1 or Shiga Toxin 2) detected. 12/24/17 23:23 Blood - Peripheral Aerobic Blood Culture - Preliminary No growth in 3 days 12/24/17 23:23 Blood - Peripheral Anaerobic Blood Culture - Preliminary No growth in 3 days 12/24/17 23:28 Blood - Peripheral Aerobic Blood Culture - Preliminary No growth in 3 days 12/24/17 23:28 Blood - Peripheral Anaerobic Blood Culture - Preliminary No growth in 3 days Assessment and Plan - Plan Elevated troponin 2 D Echo: The left ventricular systolic function is normal with an estimated ejection fraction in the range of 60-65%. Cardiomegaly noted on CT abd/pelvis report. CTA chest ordered by Dr. Sevilla; initially refused- now agreeable. Troponin and BNP elevated. Bedside cardiac u/s showed ventricular hypertrophy but EF appears preserved. EKG showed incomplete RBBB and 1st degree AVB. Aspirin 325 mg now on 81 mg p.o. daily. Does not have ACS symptoms Cardiology following Diarrhea Pt reports [address] abd/pelvis - nonspecific edema and small ascites, seen previously. Patient has refused colonoscopy per GI F/u stool C diff, Stool O and P, stool enteric pathogen PCR. Cryptosporidium Giardia and C. difficile negative will order CTA abdomen which the patient initially refused. empiric coverage with IV antibiotics. Gastroenterology following Hyponatremia, chronic (>48 hours in onset) Proteinuria - on dipstick Urines osm/serum uric and urine sodium could be consistent with SIADH. Sodium appears to be correcting on a slow trend, would want to avoid correction >8 MEQ/ 24 hours. Monitor sodium q6 hours. stop hypertonic saline and change to NS check urine albumin/ creatinine ratio consult Nephrology SLE - pancytopenia, proteinuria ?carditis - may be secondary to lupus flare. Check C3, C4, dsDNA Ab titer, ESR/CRP. on empiric steroids IV Solu-Medrol 60 mg every 8 hours Normal CRP, mildly elevated ESR Pancytopenia will monitor closely. ENDO: Cortisol and TSH essentially normal PROPH: SCD for DVT prophylaxis. Lovenox 40 mg subcu daily, monitor and discontinue if platelet count less than 50. Protonix 40 mg p.o. daily patient will be transferred to floor. d/w the RN and .
[2017-12-28] MEDS: Sod Chloride 0.9% Inj 1,000 ML IV.CONT SCH ×2 (09:35→22:05)
--- NOTE | 2017-12-28 09:42 | US ---
EXAM DATE: 12/28/2017 9:17 AM EST AGE/SEX: 67 years / Female INDICATIONS: Abdominal pain. Possible vasculitis. CLINICAL DATA: This is the patient's initial encounter. Patient reports that signs and symptoms have been present for 1 day and indicates a pain score of 2/10. MEDICAL/SURGICAL HISTORY: Lupus. Alopecia. None. [place] [facility] [place]AST W 3D, 12/28/2017. . AORTA: 74 cm/sec 101 cm/sec 80 cm/sec CELIAC ARTERY: 167 cm/sec 153 cm/sec 125 cm/sec 98 cm/sec 301 cm/sec 151 cm/sec SUPERIOR MESENTERIC ARTERY: 345 cm/sec 104 cm/sec 119 cm/sec CONCLUSION: 1. 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 Abdominal CT angiogra phy is pending. 2. Mild celiac artery stenosis. Electronically signed by: Jerad Child MD 12/28/2017 9:40 AM EST
[2017-12-28 10:52] LABS: Protein/Creatinine Ratio,Urine 5.31 (0.00-0.14)
[2017-12-28] MEDS ORDERED: Nitroglycerin SL (Override) 0.4 MG Tab SL ONE (11:56)
[2017-12-28 13:49] LABS: Anti-Nuclear Antibody Screen Pos (Neg)
--- NOTE | 2017-12-28 14:37 | CT ---
EXAM DATE: 12/28/2017 2:28 PM EST AGE/SEX: 67 years / Female INDICATIONS: Chest pain. CLINICAL DATA: This is the patient's initial encounter. Patient reports that signs and symptoms have been present for 2 days and indicates a pain score of 4/10. MEDICAL/SURGICAL HISTORY: Lupus. None. RADIATION DOSE: 4.25 CTDI (mGy) COMPARISON: [facility], CHEST 1V SINGLE AP, 12/26/2017. . TECHNIQUE: Volumetric scanning was performed using a multi-row detector CT scanner during bolus inf usion of 100 ml Omnipaque 350 (iohexol) nonionic water-soluble contrast as a single exam dose. Imag es were reconstructed using a retrospective gating algorithm including single sector and multi-sector algorithms at multiple phases of the cardiac cycle. Images were interpreted using a combination of 2 D and 3D visualization modes including curved planar reformation, thin slab maximum intensity project ion and volume rendering. Using automated exposure control and adjustment of the mA and/or kV accordi ng to patient size, radiation dose was kept as low as reasonably achievable to obtain optimal diagnos tic quality images. DICOM format image data is available electronically for review and comparison. FINDINGS: VESSEL ANALYSIS: There are three aortic valve leaflets with normal origin of the coronary ostia. DOMINANCE: The coronary system is right dominant. LEFT MAIN: Normal size vessel without calcification or stenosis. LAD: Normal size vessel without calcification or stenosis. CIRCUMFLEX: Normal size vessel without calcification or stenosis. RCA: There is significant tortuosity of the proximal RCA with limited visualization. Visualized port ions of the RCA are normal in caliber without calcification or effusion. Stenosis. OTHER: Small to moderate bilateral pleural effusions with associated airspace consolidation in the l ower lobes laterally. Trace pericardial effusion. Trace ascites. CONCLUSION: 1. No calcified coronary artery plaque or hemodynamically significant coronary artery stenosis. 2. Small to moderate bilateral pleural effusions with associated airspace consolidation in the lower lobes. 3. Trace pericardial effusion. 4. Trace ascites. Electronically signed by: Jerad Child MD 12/28/2017 2:36 PM EST
--- NOTE | 2017-12-28 14:44 | P.PNGI ---
Subjective Interval history: Pt resting in bed States she has had one loose, but semi-formed BM today Denies any abdominal pain On clear liquid diet Didn't eat anything off of hospital tray, states it contains dairy, her family is bringing her liquids from home She denies any nausea or vomiting Pt had CTA of her chest done earlier today, states she talked to her PCP who advised against CTA abdomen because of the effect the contrast will have on her kidneys <Lynette Simental - Last Filed: 12/28/17 14:31> Physical Exam Vital signs: Vital Signs 12/27/17 14:56 12/27/17 15:00 12/27/17 15:56 Temperature Pulse Rate 67 69 62 Respiratory Rate 16 16 15 Blood Pressure 170/87 H 149/79 H Pulse Oximetry 97 98 98 12/27/17 16:00 12/27/17 16:56 12/27/17 17:00 Temperature 97.8 F Pulse Rate 63 66 66 Respiratory Rate 16 16 12 Blood Pressure 151/74 H Pulse Oximetry 96 97 96 12/27/17 17:56 12/27/17 18:00 12/27/17 18:56 Temperature Pulse Rate 67 67 66 Respiratory Rate 23 20 16 Blood Pressure 162/80 H 154/75 H Pulse Oximetry 96 95 96 12/27/17 19:00 12/27/17 19:56 12/27/17 20:00 Temperature 98.3 F Pulse Rate 65 73 68 Respiratory Rate 21 27 H 16 Blood Pressure 156/84 H Pulse Oximetry 97 99 97 12/27/17 20:56 12/27/17 21:00 12/27/17 21:56 Temperature Pulse Rate 61 60 71 Respiratory Rate 12 12 12 Blood Pressure 118/65 172/80 H Pulse Oximetry 93 L 95 96 12/27/17 22:00 12/27/17 22:56 12/27/17 23:00 Temperature Pulse Rate 72 65 66 Respiratory Rate 20 25 H 18 Blood Pressure 145/82 H Pulse Oximetry 94 L 95 94 L 12/27/17 23:56 12/28/17 00:00 12/28/17 00:56 Temperature 98.3 F Pulse Rate 71 68 61 Respiratory Rate 16 8 L 11 L Blood Pressure 160/77 H 108/57 L Pulse Oximetry 94 L 94 L 93 L 12/28/17 01:00 12/28/17 01:56 12/28/17 01:57 Temperature Pulse Rate 62 68 67 Respiratory Rate 0 L 21 23 Blood Pressure 189/93 H 172/93 H Pulse Oximetry 92 L 96 96 12/28/17 02:00 12/28/17 02:56 12/28/17 03:00 Temperature Pulse Rate 67 64 62 Respiratory Rate 15 18 24 Blood Pressure 158/76 H Pulse Oximetry 95 97 93 L 12/28/17 03:56 12/28/17 04:00 12/28/17 04:56 Temperature 98.5 F Pulse Rate 64 63 61 Respiratory Rate 13 14 13 Blood Pressure 166/83 H 160/79 H Pulse Oximetry 94 L 94 L 94 L 12/28/17 05:00 12/28/17 05:56 12/28/17 06:00 Temperature Pulse Rate 60 58 L 65 Respiratory Rate 13 14 27 H Blood Pressure 143/74 H Pulse Oximetry 94 L 93 L 92 L 12/28/17 06:56 12/28/17 07:00 12/28/17 07:56 Temperature Pulse Rate 58 L 58 L 67 Respiratory Rate 13 13 24 Blood Pressure 108/64 188/95 H Pulse Oximetry 93 L 92 L 98 12/28/17 08:00 12/28/17 08:02 12/28/17 08:24 Temperature 97.6 F Pulse Rate 69 82 62 Respiratory Rate 24 24 12 Blood Pressure 198/92 H 156/79 H Pulse Oximetry 97 95 93 L 12/28/17 08:56 12/28/17 09:00 12/28/17 09:02 Temperature Pulse Rate 63 64 68 Respiratory Rate 23 26 H 25 H Blood Pressure 152/118 H 168/90 H Pulse Oximetry 94 L 92 L 94 L 12/28/17 09:56 12/28/17 10:00 12/28/17 10:56 Temperature Pulse Rate 62 61 67 Respiratory Rate 24 21 28 H Blood Pressure 176/89 H 179/90 H Pulse Oximetry 93 L 96 94 L 12/28/17 11:00 12/28/17 12:20 12/28/17 12:43 Temperature Pulse Rate 65 65 76 Respiratory Rate 20 Blood Pressure 157/94 H 160/88 H Pulse Oximetry 95 Intake & Output 12/27/17 12/28/17 12/28/17 18:59 06:59 18:59 Intake Total 700 / 700 2414 / 2414 300 / 300 Balance 700 / 700 2414 / 2414 300 / 300 Weight 53.3 kg Intake: IV 200 / 200 2294 / 2294 300 / 300 Sodium Chloride 23.4% Inj 188 2094 / 2094 200 / 200 MEQ In NS Inj 1,000 ML @ 60 mls /hr IV.CONT .[id number] [facility] Rx#: [id number] Maxipime Inj 2,000 MG In NS Inj 200 / 200 100 / 100 100 / 100 100 ML @ 200 mls/hr IV.SIG Q8H [facility] Rx#:[id number] Magnesium Sulfate Inj 2 GM In 100 / 100 NS Inj 96 ML @ 50 mls/hr IV.SIG UNSCH PRN Rx#:[id number] Oral 500 / 500 120 / 120 Other: # Voids 5 4 Date of Last Bowel Movement 12/25/17 12/27/17 12/25/17 # Bowel Movements 4 0 - Constitutional no acute distress - Routine HEENT Exam Head: Present: normocephalic, atraumatic - Routine Respiratory Exam Absent: accessory muscle use - Routine Abdominal Exam Present: soft, normoactive bowel sounds, distended. Absent: tenderness Comments: mildly distended - Routine Skin Exam Present: dry, warm - Routine Neurological Exam Present: alert, oriented X3 <Lynette Simental - Last Filed: 12/28/17 14:31> Vital signs: Vital Signs 12/27/17 19:56 12/27/17 20:00 12/27/17 20:56 Temperature 98.3 F Pulse Rate 73 68 61 Respiratory Rate 27 H 16 12 Blood Pressure 156/84 H 118/65 Pulse Oximetry 99 97 93 L 12/27/17 21:00 12/27/17 21:56 12/27/17 22:00 Temperature Pulse Rate 60 71 72 Respiratory Rate 12 12 20 Blood Pressure 172/80 H Pulse Oximetry 95 96 94 L 12/27/17 22:56 12/27/17 23:00 12/27/17 23:56 Temperature 98.3 F Pulse Rate 65 66 71 Respiratory Rate 25 H 18 16 Blood Pressure 145/82 H 160/77 H Pulse Oximetry 95 94 L 94 L 12/28/17 00:00 12/28/17 00:56 12/28/17 01:00 Temperature Pulse Rate 68 61 62 Respiratory Rate 8 L 11 L 0 L Blood Pressure 108/57 L Pulse Oximetry 94 L 93 L 92 L 12/28/17 01:56 12/28/17 01:57 12/28/17 02:00 Temperature Pulse Rate 68 67 67 Respiratory Rate 21 23 15 Blood Pressure 189/93 H 172/93 H Pulse Oximetry 96 96 95 12/28/17 02:56 12/28/17 03:00 12/28/17 03:56 Temperature Pulse Rate 64 62 64 Respiratory Rate 18 24 13 Blood Pressure 158/76 H 166/83 H Pulse Oximetry 97 93 L 94 L 12/28/17 04:00 12/28/17 04:56 12/28/17 05:00 Temperature 98.5 F Pulse Rate 63 61 60 Respiratory Rate 14 13 13 Blood Pressure 160/79 H Pulse Oximetry 94 L 94 L 94 L 12/28/17 05:56 12/28/17 06:00 12/28/17 06:56 Temperature Pulse Rate 58 L 65 58 L Respiratory Rate 14 27 H 13 Blood Pressure 143/74 H 108/64 Pulse Oximetry 93 L 92 L 93 L 12/28/17 07:00 12/28/17 07:56 12/28/17 08:00 Temperature 97.6 F Pulse Rate 58 L 67 69 Respiratory Rate 13 24 24 Blood Pressure 188/95 H Pulse Oximetry 92 L 98 97 12/28/17 08:02 12/28/17 08:24 12/28/17 08:56 Temperature Pulse Rate 82 62 63 Respiratory Rate 24 12 23 Blood Pressure 198/92 H 156/79 H 152/118 H Pulse Oximetry 95 93 L 94 L 12/28/17 09:00 12/28/17 09:02 12/28/17 09:56 Temperature Pulse Rate 64 68 62 Respiratory Rate 26 H 25 H 24 Blood Pressure 168/90 H 176/89 H Pulse Oximetry 92 L 94 L 93 L 12/28/17 10:00 12/28/17 10:56 12/28/17 11:00 Temperature Pulse Rate 61 67 65 Respiratory Rate 21 28 H 20 Blood Pressure 179/90 H Pulse Oximetry 96 94 L 95 12/28/17 12:20 12/28/17 12:43 12/28/17 12:54 Temperature Pulse Rate 65 76 Respiratory Rate Blood Pressure 157/94 H 160/88 H Pulse Oximetry 92 L 12/28/17 12:55 12/28/17 13:00 12/28/17 14:00 Temperature Pulse Rate 71 Respiratory Rate 25 H Blood Pressure 148/83 H Pulse Oximetry 92 L 91 L 92 L 12/28/17 15:00 12/28/17 15:11 12/28/17 15:19 Temperature Pulse Rate 65 73 64 Respiratory Rate 27 H 45 H 16 Blood Pressure 183/98 H 161/94 H Pulse Oximetry 97 95 96 12/28/17 15:51 12/28/17 16:00 12/28/17 16:03 Temperature 98.6 F Pulse Rate 62 Respiratory Rate 28 H Blood Pressure 166/81 H Pulse Oximetry 12/28/17 16:04 12/28/17 16:48 12/28/17 17:00 Temperature Pulse Rate 61 62 70 Respiratory Rate 23 17 21 Blood Pressure 154/72 H Pulse Oximetry 91 L 92 L 12/28/17 17:48 12/28/17 17:57 12/28/17 18:00 Temperature Pulse Rate 69 67 69 Respiratory Rate 26 H 24 22 Blood Pressure 187/96 H 179/91 H Pulse Oximetry 91 L 95 93 L Intake & Output 12/28/17 12/28/17 12/29/17 06:59 18:59 06:59 Intake Total 2414 / 2414 925 / 925 Balance 2414 / 2414 925 / 925 Weight 53.3 kg Intake: IV 2294 / 2294 400 / 400 Sodium Chloride 23.4% Inj 188 2094 / 2094 200 / 200 MEQ In NS Inj 1,000 ML @ 60 mls /hr IV.CONT .[id number] [facility] Rx#: [id number] Maxipime Inj 2,000 MG In NS Inj 100 / 100 200 / 200 100 ML @ 200 mls/hr IV.SIG Q8H [facility] Rx#:[id number] Magnesium Sulfate Inj 2 GM In 100 / 100 NS Inj 96 ML @ 50 mls/hr IV.SIG UNSCH PRN Rx#:[id number] Oral 120 / 120 525 / 525 Other: # Voids 4 4 Date of Last Bowel Movement 12/27/17 12/25/17 # Bowel Movements 0 1 <Moira Whiet - Last Filed: 12/28/17 19:34> Results - Labs CBC & Chem 7: 12/28/17 03:17 12/28/17 09:27 Laboratory Results - last 24 hr 12/25/17 12/27/17 12/27/17 01:05 EST 10:23 16:38 WBC RBC Hgb Hct MCV MCH MCHC RDW Plt Count MPV Sodium 119 L* Potassium Chloride Carbon Dioxide Anion Gap BUN Creatinine Estimated GFR Random Glucose Calcium Prot Corrected Calcium Magnesium Total Bilirubin AST ALT Alkaline Phosphatase Total Protein Albumin Ur Random Creatinine U Random Total Protein Protein/Creatinin Ratio BETZY Screen Pos H Double Strand DNA Ab 338.0 H 12/27/17 12/28/17 12/28/17 23:27 03:17 03:17 WBC 1.2 L RBC 3.77 L Hgb 11.9 Hct 34.6 L MCV 91.9 MCH 31.5 MCHC 34.3 RDW 12.0 Plt Count 99 L MPV 9.8 Sodium 121 L* 122 L* Potassium 3.5 Chloride 91 L Carbon Dioxide 19.3 L Anion Gap 12 BUN 10 Creatinine 0.62 Estimated GFR Greater than 89 Random Glucose 147 H Calcium 6.8 L* Prot Corrected Calcium 7.6 L Magnesium 1.8 Total Bilirubin 0.3 AST 106 H ALT 63 H Alkaline Phosphatase 46 Total Protein 5.6 L D Albumin 1.9 L Ur Random Creatinine U Random Total Protein Protein/Creatinin Ratio BETZY Screen Double Strand DNA Ab 12/28/17 12/28/17 12/28/17 03:17 09:27 09:50 WBC RBC Hgb Hct MCV MCH MCHC RDW Plt Count MPV Sodium Cancelled 124 L* Potassium Chloride Carbon Dioxide Anion Gap BUN Creatinine Estimated GFR Random Glucose Calcium Prot Corrected Calcium Magnesium Total Bilirubin AST ALT Alkaline Phosphatase Total Protein Albumin Ur Random Creatinine 123 U Random Total Protein 653.6 H Protein/Creatinin Ratio 5.31 H BETZY Screen Double Strand DNA Ab Microbiology 12/24/17 23:23 Blood - Peripheral Aerobic Blood Culture - Preliminary No growth in 4 days 12/24/17 23:23 Blood - Peripheral Anaerobic Blood Culture - Preliminary No growth in 4 days 12/24/17 23:28 Blood - Peripheral Aerobic Blood Culture - Preliminary No growth in 4 days 12/24/17 23:28 Blood - Peripheral Anaerobic Blood Culture - Preliminary No growth in 4 days 12/25/17 12:44 Stool Enteric Pathogens (PCR) - Final No enteric pathogens detected by PCR (No Salmonella sp., Shigella sp., Campylobacter sp., Yersinia enterocolitica, Vibrio sp., Norovirus, or EHEC (Shiga Toxin 1 or Shiga Toxin 2) detected. - Imaging Impressions Abdomen Ultrasound 12/28/17 00:00 CONCLUSION: 1. 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 Abdominal CT angiography is pending. 2. Mild celiac artery stenosis. <Lynette Simental - Last Filed: 12/28/17 14:31> - Labs CBC & Chem 7: 12/28/17 03:17 12/28/17 15:02 Laboratory Results - last 24 hr 12/25/17 12/27/17 12/27/17 01:05 EST 10:23 23:27 WBC RBC Hgb Hct MCV MCH MCHC RDW Plt Count MPV Sodium 121 L* Potassium Chloride Carbon Dioxide Anion Gap BUN Creatinine Estimated GFR Random Glucose Calcium Prot Corrected Calcium Magnesium Total Bilirubin AST ALT Alkaline Phosphatase Total Protein Albumin Ur Random Creatinine U Random Total Protein Protein/Creatinin Ratio BETZY Screen Pos H Double Strand DNA Ab 338.0 H 12/28/17 12/28/17 12/28/17 03:17 03:17 03:17 WBC 1.2 L RBC 3.77 L Hgb 11.9 Hct 34.6 L MCV 91.9 MCH 31.5 MCHC 34.3 RDW 12.0 Plt Count 99 L MPV 9.8 Sodium 122 L* Cancelled Potassium 3.5 Chloride 91 L Carbon Dioxide 19.3 L Anion Gap 12 BUN 10 Creatinine 0.62 Estimated GFR Greater than 89 Random Glucose 147 H Calcium 6.8 L* Prot Corrected Calcium 7.6 L Magnesium 1.8 Total Bilirubin 0.3 AST 106 H ALT 63 H Alkaline Phosphatase 46 Total Protein 5.6 L D Albumin 1.9 L Ur Random Creatinine U Random Total Protein Protein/Creatinin Ratio BETZY Screen Double Strand DNA Ab 12/28/17 12/28/17 12/28/17 09:27 09:50 15:02 WBC RBC Hgb Hct MCV MCH MCHC RDW Plt Count MPV Sodium 124 L* 123 L* Potassium Chloride Carbon Dioxide Anion Gap BUN Creatinine Estimated GFR Random Glucose Calcium Prot Corrected Calcium Magnesium Total Bilirubin AST ALT Alkaline Phosphatase Total Protein Albumin Ur Random Creatinine 123 U Random Total Protein 653.6 H Protein/Creatinin Ratio 5.31 H BETZY Screen Double Strand DNA Ab Microbiology 12/24/17 23:23 Blood - Peripheral Aerobic Blood Culture - Preliminary No growth in 4 days 12/24/17 23:23 Blood - Peripheral Anaerobic Blood Culture - Preliminary No growth in 4 days 12/24/17 23:28 Blood - Peripheral Aerobic Blood Culture - Preliminary No growth in 4 days 12/24/17 23:28 Blood - Peripheral Anaerobic Blood Culture - Preliminary No growth in 4 days 12/25/17 12:44 Stool Enteric Pathogens (PCR) - Final No enteric pathogens detected by PCR (No Salmonella sp., Shigella sp., Campylobacter sp., Yersinia enterocolitica, Vibrio sp., Norovirus, or EHEC (Shiga Toxin 1 or Shiga Toxin 2) detected. - Imaging Impressions Abdomen Ultrasound 12/28/17 00:00 CONCLUSION: 1. 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 Abdominal CT angiography is pending. 2. Mild celiac artery stenosis. Coronary Angiography CT 12/28/17 00:00 CONCLUSION: 1. No calcified coronary artery plaque or hemodynamically significant coronary artery stenosis. 2. Small to moderate bilateral pleural effusions with associated airspace consolidation in the lower lobes. 3. Trace pericardial effusion. 4. Trace ascites. <Moira White - Last Filed: 12/28/17 19:34> Assessment and Plan - Plan Assessment: - Abdominal bloating with diarrhea- reported up to 12 loose stools a day, denies any melena or hematochezia. Denies previous EGD or colonoscopy. Pt has refused EGD and colonoscopy. C. Diff negative. Ova and parasites stool negative. Enteric pathogens stool negative. CT abdomen/pelvis 12/24 --> nonspecific edema and small ascites. Nothing organized or drainable. Similar findings were seen previously. No focal inflammatory changes are demonstrated. No obstruction. Mild thickening of the intralobular septa of both lung bases suggesting mild pulmonary edema. Heart is enlarged. No pleural effusion. Previously seen pericardial effusion is no longer present. 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 Pt has been advised to have CTA abdomen/pelvis but first refused because she did not want to be stuck multiple times for IV access for IV contrast and now states her PCP has advised against the exam because of the effect the IV contrast will have on her kidneys - Systemic lupus erythematous- Was not on treatment at time of admission, was previously on Plaquenil and Prednisone Has been started on IV Solumedrol - Proteinuria ? lupus nephritis- nephrology has been consulted - Elevated troponin- Echo- normal LVEF, pt declined further cardiac testing, later agreed to CTA chest - Hyponatremia - nephrology consulted - Pancytopenia- possibly secondary to lupus flare Plan: Consult vascular surgery Also will consult IR Continue clear liquids Pt would benefit from rheumatology consult, defer to primary team Refusing CTA abdomen/pelvis Refusing EGD/colonoscopy Protonix Carafate Cardiology following Nephrology has been consulted Electrolyte replacement per primary team Further recommendations based on clinical course and pt compliance This patient has been seen and examined by myself and Dr. White and this note is written on her behalf <Lynette Simental - Last Filed: 12/28/17 14:31> - Attending Attestation seem, examined agree with above <Moira White - Last Filed: 12/28/17 19:34>
--- NOTE | 2017-12-28 15:33 | P.DIET ---
Nutritional Evaluation Type of nutrition evaluation: initial Nutrition screening: MDC (multiple dietary restrictions) Subjective Subjective Comments: Pt reports she eats no gluten, no dairy and only farm raised meat. Declines supplements and soy milk. She states that she has family and friends that will bring in her food preferences. Only wants hot water on her trays for her herbal tea. Info communicated to nurse and diet office. Objective - Diagnosis Hyponatremia, Hypocalcemia, diarrhea - Objective % IBW: 107 (IBW = 110#) Body Weight Used for Calculations: Actual (53.3 kg) Energy Needs - Lower Range (kCal/kg): 25 Energy Needs - Upper Range (kCal/kg): 30 Lower Limit kCal/kg (kCals): 1,333 Upper Limit kCal/kg (kCals): 1,599 Lower Limit Protein Factor (Grams per Kg): 1.0 Upper Limit Protein Factor (Grams per Kg): 1.5 Lower Protein Needs (Protein): 53 Upper Protein Needs (Protein): 90 Fluid Factor (ml/kg): 30 Estimated Fluid Needs (ml): 1,599 Dietitian Reviewed in Medical Record: Current diet, Curent medications, Intake & Output, Labs, Medical history Diet Order: Full Liquids Objective Comments: Na 124, PC Ca 7.6, glu 147 Assessment Assessment: Pt with very restrictive eating habits, further limited by Full Liquid diet. Pt understands that choices within the hospital are limited and prefers to obtain food from outside. Will continue to work to provide her with her food choices. RD will follow. Recommendations: When ordering diet: Add Gluten and Dairy restriction Advance per [facility] [place] pt's preferences. Dietitian to Monitor: Lab values, Intake & Output, Diet tolerance, Weight change , PO Intake, Diet advancement, Medical course
--- NOTE | 2017-12-28 16:54 | P.CONVS ---
History of Present Illness Service: Vascular surgery Consult date: 12/28/17 Primary Care Provider: Smita Gaviria DO Chief Complaint: Diarrhea, fatigue History of Present Illness: 67-year-old female with a past medical history of systemic lupus who presents to the hospital with a chief complaint of watery diarrhea for the past few weeks. She is admitted to the intensive care unit with pancytopenia and neutropenia. Vascular surgery was consulted to evaluate for mesenteric ischemia. The patient denies any history of postprandial pain, food fear, nausea or vomiting. She is able to tolerate her healthy diet with no problems prior to this admission. She currently denies any abdominal pain. She reports that her watery diarrhea is almost resolved. Review of Systems All other systems reviewed negative except as stated in HPI PMFSH - History History Provided By: Patient - Medical History Medical History: Medical History (Last Updated 12/24/17 @ 16:47 by Erlinda Lan) Alopecia Lupus - Surgical History Surgical History: Surgical History (Last Updated 12/25/17 @ 09:49 by Mackenzie Underwood MD) No history of previous surgery - Family History Family History: Family History (Last Updated 12/25/17 @ 09:49 by Mackenzie Underwood MD) Other No significant family history - Tobacco History Second Hand Smoke Exposure: No Smoking Status: Never smoker - Alcohol History How Often Do You Have a Drink Containing Alcohol: Never - Substance Use History Substance History: No History of Abuse - Travel History Recent Travel in the [place] Within the Last 8 Weeks: No Recent Travel Out of the Country Within the Last 8 Weeks: No - Immunization History Tetanus Immunization: >5 Years Hx Influenza Vaccine This Season: No Medications and Allergies Active Medications: Active Medications Acetaminophen (Tylenol) 650 mg PO Q6H PRN PRN Reason: PAIN 1-10 AND/OR FEVER >101F Last Admin: 12/26/17 22:50 Dose: 650 mg Amlodipine Besylate (Norvasc) 5 mg PO DAILY [facility] Aspirin (Aspirin Chew) 81 mg PO DAILY [facility] Last Admin: 12/28/17 08:48 Dose: 81 mg Chlorhexidine Gluconate (Chlorhexidine 2% Cloth) 3 pack TOPICAL DAILY@0400 JONAS Stop: 12/30/17 03:59 Last Admin: 12/28/17 04:16 Dose: 3 pack Chlorhexidine Gluconate (Chlorhexidine 2% Cloth) 3 pack TOPICAL DAILY@0400 PRN PRN Reason: Extra cloth needed Stop: 12/30/17 03:59 Enoxaparin Sodium (Lovenox Inj) 40 mg SQ Q24H [facility] Last Admin: 12/27/17 20:12 Dose: 40 mg Cefepime HCl 2,000 mg/ Sodium (Chloride) 100 mls @ 200 mls/hr IV.SIG Q8H [facility] Last Infusion: 12/28/17 16:20 Dose: Infused Magnesium Sulfate 4 gm/ Sodium (Chloride) 100 mls @ 50 mls/hr IV.SIG UNSCH PRN PRN Reason: For Magnesium 0.9 - 1.1 mg/dL Magnesium Sulfate 2 gm/ Sodium (Chloride) 100 mls @ 50 mls/hr IV.SIG UNSCH PRN PRN Reason: For Magnesium 1.2 - 1.6 mg/dL Last Infusion: 12/27/17 20:04 Dose: Infused Potassium Chloride (Kcl 20 Meq Premix Inj) 20 meq in 100 mls @ 50 mls/hr IV.SIG Q2H PRN PRN Reason: For Potassium 3.3 - 3.5 mEq/L Potassium Chloride (Kcl 40 Meq Premix Inj) 40 meq in 100 mls @ 25 mls/hr IV.SIG UNSCH PRN PRN Reason: For Potassium 3.3 - 3.5 mEq/L Potassium Chloride (Kcl 20 Meq Premix Inj) 20 meq in 100 mls @ 50 mls/hr IV.SIG Q2H PRN PRN Reason: For Potassium 2.8 - 3.2 mEq/L Potassium Phosphate 30 mmol/ (Sodium Chloride) 260 mls @ 42 mls/hr IV.SIG UNSCH PRN PRN Reason: SEE LABEL COMMENTS Sodium Phosphate 30 mmol/ (Sodium Chloride) 260 mls @ 42 mls/hr IV.SIG UNSCH PRN PRN Reason: For Phosphorus < 2.5 mg/dL Potassium Chloride (Kcl 40 Meq Premix Inj) 40 meq in 100 mls @ 50 mls/hr IV.SIG Q2H PRN PRN Reason: For Potassium 2.8 - 3.2 mEq/L Sodium Chloride (Ns Inj) 1,000 mls @ 100 mls/hr IV.CONT .Q10H [facility] Last Admin: 12/28/17 09:35 Dose: 100 mls/hr Labetalol HCl (Trandate Inj) 20 mg IV.PUSH Q4H PRN PRN Reason: SBP >160 Last Admin: 12/27/17 11:06 Dose: 20 mg Lactobacillus Acidophilus (Lactinex Pkt) 1 gm PO TID [facility] Last Admin: 12/28/17 13:27 Dose: 1 gm Magnesium Oxide (Mag-Ox) 800 mg PO UNSCH PRN PRN Reason: For Magnesium 1.2 - 1.6 mg/dL Methylprednisolone Sodium Succinate (Solumedrol Inj) 60 mg IV.PUSH Q8H [facility] Last Admin: 12/28/17 15:49 Dose: 60 mg Metronidazole (Flagyl) 500 mg PO Q8HR [facility] Last Admin: 12/28/17 13:27 Dose: 500 mg Ondansetron HCl (Zofran Inj) 4 mg IV.PUSH Q6H PRN PRN Reason: nausea Last Admin: 12/26/17 22:51 Dose: 4 mg Pantoprazole Sodium (Protonix) 40 mg PO DAILY [facility] Last Admin: 12/28/17 08:48 Dose: 40 mg Potassium Bicarb/Potassium Chloride (K-Lyte Cl Eff) 50 meq PO UNSCH PRN PRN Reason: For Potassium 3.3 - 3.5 mEq/L Potassium Phosphate (K-Phos Original) 2,000 mg PO Q4H PRN PRN Reason: Phosphorus Less Than 2.5 mg/dL Potassium Phosphate (K-Phos Original) 2,000 mg PO UNSCH PRN PRN Reason: SEE LABEL COMMENTS Promethazine HCl (Phenergan Inj) 25 mg IM Q6H PRN PRN Reason: breakthrough nausea Last Admin: 12/25/17 13:07 Dose: 25 mg Sodium Chloride (Ns Flush) 2 ml IV.FLUSH BID [facility] Last Admin: 12/28/17 10:24 Dose: 2 ml Sodium Chloride (Ns Flush) 2 ml IV.FLUSH PRN PRN PRN Reason: FLUSH AFTER USING IV ACCESS Sucralfate (Carafate Liq) 1 gm PO QID [facility] Last Admin: 12/28/17 13:27 Dose: 1 gm Throat Lozenges (Chloraseptic [place]) 1 spray OROPHARYNG Q2H PRN PRN Reason: SORE THROAT Last Admin: 12/25/17 16:49 Dose: 1 spray Allergies Allergy/AdvReac Type Severity Reaction Status Date / Time morphine Allergy Intermediate Rash Verified 12/24/17 16:31 Home Medications Medication Instructions Recorded Confirmed Type No Known Home Medications 12/24/17 12/24/17 History Physical Exam Vital Signs / I&O: Vital Signs 12/27/17 16:56 12/27/17 17:00 12/27/17 17:56 Temperature Pulse Rate 66 66 67 Respiratory Rate 16 12 23 Blood Pressure 151/74 H 162/80 H Pulse Oximetry 97 96 96 12/27/17 18:00 12/27/17 18:56 12/27/17 19:00 Temperature Pulse Rate 67 66 65 Respiratory Rate 20 16 21 Blood Pressure 154/75 H Pulse Oximetry 95 96 97 12/27/17 19:56 12/27/17 20:00 12/27/17 20:56 Temperature 98.3 F Pulse Rate 73 68 61 Respiratory Rate 27 H 16 12 Blood Pressure 156/84 H 118/65 Pulse Oximetry 99 97 93 L 12/27/17 21:00 12/27/17 21:56 12/27/17 22:00 Temperature Pulse Rate 60 71 72 Respiratory Rate 12 12 20 Blood Pressure 172/80 H Pulse Oximetry 95 96 94 L 12/27/17 22:56 12/27/17 23:00 12/27/17 23:56 Temperature 98.3 F Pulse Rate 65 66 71 Respiratory Rate 25 H 18 16 Blood Pressure 145/82 H 160/77 H Pulse Oximetry 95 94 L 94 L 12/28/17 00:00 12/28/17 00:56 12/28/17 01:00 Temperature Pulse Rate 68 61 62 Respiratory Rate 8 L 11 L 0 L Blood Pressure 108/57 L Pulse Oximetry 94 L 93 L 92 L 12/28/17 01:56 12/28/17 01:57 12/28/17 02:00 Temperature Pulse Rate 68 67 67 Respiratory Rate 21 23 15 Blood Pressure 189/93 H 172/93 H Pulse Oximetry 96 96 95 12/28/17 02:56 12/28/17 03:00 12/28/17 03:56 Temperature Pulse Rate 64 62 64 Respiratory Rate 18 24 13 Blood Pressure 158/76 H 166/83 H Pulse Oximetry 97 93 L 94 L 12/28/17 04:00 12/28/17 04:56 12/28/17 05:00 Temperature 98.5 F Pulse Rate 63 61 60 Respiratory Rate 14 13 13 Blood Pressure 160/79 H Pulse Oximetry 94 L 94 L 94 L 12/28/17 05:56 12/28/17 06:00 12/28/17 06:56 Temperature Pulse Rate 58 L 65 58 L Respiratory Rate 14 27 H 13 Blood Pressure 143/74 H 108/64 Pulse Oximetry 93 L 92 L 93 L 12/28/17 07:00 12/28/17 07:56 12/28/17 08:00 Temperature 97.6 F Pulse Rate 58 L 67 69 Respiratory Rate 13 24 24 Blood Pressure 188/95 H Pulse Oximetry 92 L 98 97 12/28/17 08:02 12/28/17 08:24 12/28/17 08:56 Temperature Pulse Rate 82 62 63 Respiratory Rate 24 12 23 Blood Pressure 198/92 H 156/79 H 152/118 H Pulse Oximetry 95 93 L 94 L 12/28/17 09:00 12/28/17 09:02 12/28/17 09:56 Temperature Pulse Rate 64 68 62 Respiratory Rate 26 H 25 H 24 Blood Pressure 168/90 H 176/89 H Pulse Oximetry 92 L 94 L 93 L 12/28/17 10:00 12/28/17 10:56 12/28/17 11:00 Temperature Pulse Rate 61 67 65 Respiratory Rate 21 28 H 20 Blood Pressure 179/90 H Pulse Oximetry 96 94 L 95 12/28/17 12:20 12/28/17 12:43 12/28/17 12:54 Temperature Pulse Rate 65 76 Respiratory Rate Blood Pressure 157/94 H 160/88 H Pulse Oximetry 92 L 12/28/17 12:55 12/28/17 13:00 12/28/17 14:00 Temperature Pulse Rate 71 Respiratory Rate 25 H Blood Pressure 148/83 H Pulse Oximetry 92 L 91 L 92 L 12/28/17 15:00 12/28/17 15:11 12/28/17 15:19 Temperature Pulse Rate 65 73 64 Respiratory Rate 27 H 45 H 16 Blood Pressure 183/98 H 161/94 H Pulse Oximetry 97 95 96 12/28/17 15:51 12/28/17 16:00 12/28/17 16:03 Temperature 98.6 F Pulse Rate 62 Respiratory Rate 28 H Blood Pressure 166/81 H Pulse Oximetry 12/28/17 16:04 Temperature Pulse Rate 61 Respiratory Rate 23 Blood Pressure Pulse Oximetry Intake & Output 12/27/17 12/28/17 12/28/17 18:59 06:59 18:59 Intake Total 700 / 700 2414 / 2414 400 / 400 Balance 700 / 700 2414 / 2414 400 / 400 Weight 53.3 kg Intake: IV 200 / 200 2294 / 2294 400 / 400 Sodium Chloride 23.4% Inj 188 4 / 2094 200 / 200 MEQ In NS Inj 1,000 ML @ 60 mls /hr IV.CONT .[id number] JONAS Rx#: [id number] Maxipime Inj 2,000 MG In NS Inj 200 / 200 100 / 100 200 / 200 100 ML @ 200 mls/hr IV.SIG Q8H JONAS Rx#:[id number] Magnesium Sulfate Inj 2 GM In 100 / 100 NS Inj 96 ML @ 50 mls/hr IV.SIG UNSCH PRN Rx#:[id number] Oral 500 / 500 120 / 120 Other: # Voids 5 4 Date of Last Bowel Movement 12/25/17 12/27/17 12/25/17 # Bowel Movements 4 0 Neuro: Alert awake oriented x3, no neurological deficits HEENT: Normocephalic atraumatic Neck: Supple Heart: S1-S2 Lungs: Clear to auscultation bilateral Abdomen: Soft nontender nondistended, no rebound or peritoneal signs Vascular: Palpable femoral pulse bilaterally Laboratory Results - last 24 hr 12/25/17 12/27/17 12/27/17 01:05 EST 10:23 16:38 WBC RBC Hgb Hct MCV MCH MCHC RDW Plt Count MPV Sodium 119 L* Potassium Chloride Carbon Dioxide Anion Gap BUN Creatinine Estimated GFR Random Glucose Calcium Prot Corrected Calcium Magnesium Total Bilirubin AST ALT Alkaline Phosphatase Total Protein Albumin Ur Random Creatinine U Random Total Protein Protein/Creatinin Ratio BETZY Screen Pos H Double Strand DNA Ab 338.0 H 12/27/17 12/28/17 12/28/17 23:27 03:17 03:17 WBC 1.2 L RBC 3.77 L Hgb 11.9 Hct 34.6 L MCV 91.9 MCH 31.5 MCHC 34.3 RDW 12.0 Plt Count 99 L MPV 9.8 Sodium 121 L* 122 L* Potassium 3.5 Chloride 91 L Carbon Dioxide 19.3 L Anion Gap 12 BUN 10 Creatinine 0.62 Estimated GFR Greater than 89 Random Glucose 147 H Calcium 6.8 L* Prot Corrected Calcium 7.6 L Magnesium 1.8 Total Bilirubin 0.3 AST 106 H ALT 63 H Alkaline Phosphatase 46 Total Protein 5.6 L D Albumin 1.9 L Ur Random Creatinine U Random Total Protein Protein/Creatinin Ratio BETZY Screen Double Strand DNA Ab 12/28/17 12/28/17 12/28/17 03:17 09:27 09:50 WBC RBC Hgb Hct MCV MCH MCHC RDW Plt Count MPV Sodium Cancelled 124 L* Potassium Chloride Carbon Dioxide Anion Gap BUN Creatinine Estimated GFR Random Glucose Calcium Prot Corrected Calcium Magnesium Total Bilirubin AST ALT Alkaline Phosphatase Total Protein Albumin Ur Random Creatinine 123 U Random Total Protein 653.6 H Protein/Creatinin Ratio 5.31 H BETZY Screen Double Strand DNA Ab 12/28/17 15:02 WBC RBC Hgb Hct MCV MCH MCHC RDW Plt Count MPV Sodium 123 L* Potassium Chloride Carbon Dioxide Anion Gap BUN Creatinine Estimated GFR Random Glucose Calcium Prot Corrected Calcium Magnesium Total Bilirubin AST ALT Alkaline Phosphatase Total Protein Albumin Ur Random Creatinine U Random Total Protein Protein/Creatinin Ratio BETZY Screen Double Strand DNA Ab Microbiology 12/24/17 23:23 Aerobic Blood Culture - Preliminary Blood - Peripheral No growth in 4 days Anaerobic Blood Culture - Preliminary No growth in 4 days 12/24/17 23:28 Aerobic Blood Culture - Preliminary Blood - Peripheral No growth in 4 days Anaerobic Blood Culture - Preliminary No growth in 4 days 12/25/17 12:44 Enteric Pathogens (PCR) - Final Stool No enteric pathogens detected by PCR (No Salmonella sp., Shigella sp., Campylobacter sp., Yersinia enterocolitica, Vibrio sp., Norovirus, or EHEC (Shiga Toxin 1 or Shiga Toxin 2) detected. Impressions Abdomen Ultrasound 12/28/17 00:00 CONCLUSION: 1. 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 Abdominal CT angiography is pending. 2. Mild celiac artery stenosis. Coronary Angiography CT 12/28/17 00:00 CONCLUSION: 1. No calcified coronary artery plaque or hemodynamically significant coronary artery stenosis. 2. Small to moderate bilateral pleural effusions with associated airspace consolidation in the lower lobes. 3. Trace pericardial effusion. 4. Trace ascites. 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 The patient clinical presentation is atypical for chronic or acute mesenteric ischemia. Vasculitis is definitely a concern in this patient. I discussed having a CT angiography of the abdomen and pelvis with the patient. She is currently refusing and she believes that her symptoms are improving. I will continue to follow. If patient's symptoms persist and her abdominal pain persists, I will convince her to obtain CT angiography of the abdomen and pelvis. If superior mesenteric artery stenosis is confirmed, I will perform a diagnostic angiography possible SMA stenting. Thank you for allowing to participate in this patient care. If you have any questions please do not hesitate to call my cell phone Cliff Verde MD [facility] [phone]
[2017-12-28] MEDS: amLODIPine 5 MG Tablet PO SCH (17:43)
--- NOTE | 2017-12-28 20:07 | P.CONNP ---
History of Present Illness Service: Nephrology Consult date: 12/28/17 Requesting Physician: Micaela Murrlel Reason for Consult: Hyponatremia Primary Care Provider: Smita Gaviria DO Chief Complaint: Diarrhea, fatigue History of Present Illness: Patient is a 67-year-old white female with history of SLE diagnosed in 2014 she states that she was on prednisone and Plaquenil followed with rheumatology Dr. Hendrix but then stopped her prednisone last year and we does self off the Plaquenil since spring, patient had a rash alopecia and continue holistic medicine to avoid gluten, processed meats and she did well but lately she had a flareup and developed abdominal pain and loose stools came in with weakness and found to have severe hyponatremia, during investigation it was discovered BETZY is positive, [id number] DNA 338, serum complement level, she does have proteinuria protein to creatinine ratio of 5.31. Sodium is running low she has abnormal liver function studies as well. Review of Systems Constitutional: Reports anorexia, Reports lack of energy Eyes: Denies blind spots, Denies blurry vision, Denies bulging eyes, Denies change in vision, Denies double vision, Denies discharge, Denies dry eyes, Denies floaters, Denies irritation, Denies itchy eyes, Denies loss of vision, Denies pain, Denies requires corrective lenses, Denies sensitivity to light, Denies other Ears, Nose, Mouth, and Throat: Reports other (Face rash alopecia) Cardiovascular: Reports leg swelling, Reports shortness of breath Respiratory: Reports shortness of breath Gastrointestinal: Reports abdominal pain, Reports change in stools, Reports loose stools Musculoskeletal: Reports abnormal walking, Reports muscle weakness Skin/Breast: Reports rash Neurologic: Reports weakness Endocrine: Denies cold intolerance, Denies excessive sweating, Denies flushing, Denies heat intolerance, Denies increased hunger, Denies increased thirst, Denies increased urination, Denies rapid, pounding, or irregular heartbeat, Denies other Hematologic/Lymphatic: Denies easy bleeding, Denies easy bruising, Denies enlarged lymph nodes, Denies other Allergic/Immunologic: Denies GI upset with certain foods, Denies hives, Denies itchy eyes, Denies lip swelling, Denies seasonal runny nose, Denies throat swelling, Denies tongue swelling, Denies wheezing, Denies other PMFSH - History History Provided By: Patient - Medical History Medical History: Medical History (Last Reviewed 12/28/17 @ 20:04 by Adela Metcalf MD) Alopecia Lupus - Surgical History Surgical History: Surgical History (Last Reviewed 12/28/17 @ 20:04 by Adela Metcalf MD) No history of previous surgery - Family History Family History: Family History (Last Reviewed 12/28/17 @ 20:04 by Adela Metcalf MD) Other No significant family history - Social History I have reviewed the patient's Social History: Yes - Tobacco History Second Hand Smoke Exposure: No Smoking Status: Never smoker - Alcohol History How Often Do You Have a Drink Containing Alcohol: Never - Substance Use History Substance History: No History of Abuse - Travel History Recent Travel in the [place] Within the Last 8 Weeks: No Recent Travel Out of the Country Within the Last 8 Weeks: No - Immunization History Tetanus Immunization: >5 Years Hx Influenza Vaccine This Season: No Medications and Allergies Active Medications: Active Medications Acetaminophen (Tylenol) 650 mg PO Q6H PRN PRN Reason: PAIN 1-10 AND/OR FEVER >101F Last Admin: 12/26/17 22:50 Dose: 650 mg Amlodipine Besylate (Norvasc) 5 mg PO DAILY [facility] Last Admin: 12/28/17 17:43 Dose: 5 mg Aspirin (Aspirin Chew) 81 mg PO DAILY [facility] Last Admin: 12/28/17 08:48 Dose: 81 mg Chlorhexidine Gluconate (Chlorhexidine 2% Cloth) 3 pack TOPICAL DAILY@0400 [facility] Stop: 12/30/17 03:59 Last Admin: 12/28/17 04:16 Dose: 3 pack Chlorhexidine Gluconate (Chlorhexidine 2% Cloth) 3 pack TOPICAL DAILY@0400 PRN PRN Reason: Extra cloth needed Stop: 12/30/17 03:59 Enoxaparin Sodium (Lovenox Inj) 40 mg SQ Q24H [facility] Last Admin: 12/27/17 20:12 Dose: 40 mg Cefepime HCl 2,000 mg/ Sodium (Chloride) 100 mls @ 200 mls/hr IV.SIG Q8H [facility] Last Infusion: 12/28/17 16:20 Dose: Infused Magnesium Sulfate 4 gm/ Sodium (Chloride) 100 mls @ 50 mls/hr IV.SIG UNSCH PRN PRN Reason: For Magnesium 0.9 - 1.1 mg/dL Magnesium Sulfate 2 gm/ Sodium (Chloride) 100 mls @ 50 mls/hr IV.SIG UNSCH PRN PRN Reason: For Magnesium 1.2 - 1.6 mg/dL Last Infusion: 12/27/17 20:04 Dose: Infused Potassium Chloride (Kcl 20 Meq Premix Inj) 20 meq in 100 mls @ 50 mls/hr IV.SIG Q2H PRN PRN Reason: For Potassium 3.3 - 3.5 mEq/L Potassium Chloride (Kcl 40 Meq Premix Inj) 40 meq in 100 mls @ 25 mls/hr IV.SIG UNSCH PRN PRN Reason: For Potassium 3.3 - 3.5 mEq/L Potassium Chloride (Kcl 20 Meq Premix Inj) 20 meq in 100 mls @ 50 mls/hr IV.SIG Q2H PRN PRN Reason: For Potassium 2.8 - 3.2 mEq/L Potassium Phosphate 30 mmol/ (Sodium Chloride) 260 mls @ 42 mls/hr IV.SIG UNSCH PRN PRN Reason: SEE LABEL COMMENTS Sodium Phosphate 30 mmol/ (Sodium Chloride) 260 mls @ 42 mls/hr IV.SIG UNSCH PRN PRN Reason: For Phosphorus < 2.5 mg/dL Potassium Chloride (Kcl 40 Meq Premix Inj) 40 meq in 100 mls @ 50 mls/hr IV.SIG Q2H PRN PRN Reason: For Potassium 2.8 - 3.2 mEq/L Sodium Chloride (Ns Inj) 1,000 mls @ 100 mls/hr IV.CONT .Q10H [facility] Last Admin: 12/28/17 09:35 Dose: 100 mls/hr Labetalol HCl (Trandate Inj) 20 mg IV.PUSH Q4H PRN PRN Reason: SBP >160 Last Admin: 12/27/17 11:06 Dose: 20 mg Lactobacillus Acidophilus (Lactinex Pkt) 1 gm PO TID [facility] Last Admin: 12/28/17 17:43 Dose: 1 gm Magnesium Oxide (Mag-Ox) 800 mg PO UNSCH PRN PRN Reason: For Magnesium 1.2 - 1.6 mg/dL Methylprednisolone Sodium Succinate (Solumedrol Inj) 60 mg IV.PUSH Q8H [facility] Last Admin: 12/28/17 15:49 Dose: 60 mg Metronidazole (Flagyl) 500 mg PO Q8HR [facility] Last Admin: 12/28/17 13:27 Dose: 500 mg Mycophenolate Mofetil (Cellcept) 500 mg PO BID@0600,1800 [facility] Ondansetron HCl (Zofran Inj) 4 mg IV.PUSH Q6H PRN PRN Reason: nausea Last Admin: 12/26/17 22:51 Dose: 4 mg Pantoprazole Sodium (Protonix) 40 mg PO DAILY [facility] Last Admin: 12/28/17 08:48 Dose: 40 mg Potassium Bicarb/Potassium Chloride (K-Lyte Cl Eff) 50 meq PO UNSCH PRN PRN Reason: For Potassium 3.3 - 3.5 mEq/L Potassium Phosphate (K-Phos Original) 2,000 mg PO Q4H PRN PRN Reason: Phosphorus Less Than 2.5 mg/dL Potassium Phosphate (K-Phos Original) 2,000 mg PO UNSCH PRN PRN Reason: SEE LABEL COMMENTS Promethazine HCl (Phenergan Inj) 25 mg IM Q6H PRN PRN Reason: breakthrough nausea Last Admin: 12/25/17 13:07 Dose: 25 mg Sodium Chloride (Ns Flush) 2 ml IV.FLUSH BID [facility] Last Admin: 12/28/17 10:24 Dose: 2 ml Sodium Chloride (Ns Flush) 2 ml IV.FLUSH PRN PRN PRN Reason: FLUSH AFTER USING IV ACCESS Sucralfate (Carafate Liq) 1 gm PO QID [facility] Last Admin: 12/28/17 17:44 Dose: 1 gm Throat Lozenges (Chloraseptic [place]) 1 spray OROPHARYNG Q2H PRN PRN Reason: SORE THROAT Last Admin: 12/25/17 16:49 Dose: 1 spray Allergies Allergy/AdvReac Type Severity Reaction Status Date / Time morphine Allergy Intermediate Rash Verified 12/24/17 16:31 Home Medications Medication Instructions Recorded Confirmed Type No Known Home Medications 12/24/17 12/24/17 History Exam Vital signs: Vital Signs 12/27/17 20:56 12/27/17 21:00 12/27/17 21:56 Temperature Pulse Rate 61 60 71 Respiratory Rate 12 12 12 Blood Pressure 118/65 172/80 H Pulse Oximetry 93 L 95 96 12/27/17 22:00 12/27/17 22:56 11/06/18 23:00 Temperature Pulse Rate 72 65 66 Respiratory Rate 20 25 H 18 Blood Pressure 145/82 H Pulse Oximetry 94 L 95 94 L 12/27/17 23:56 12/28/17 00:00 12/28/17 00:56 Temperature 98.3 F Pulse Rate 71 68 61 Respiratory Rate 16 8 L 11 L Blood Pressure 160/77 H 108/57 L Pulse Oximetry 94 L 94 L 93 L 12/28/17 01:00 12/28/17 01:56 12/28/17 01:57 Temperature Pulse Rate 62 68 67 Respiratory Rate 0 L 21 23 Blood Pressure 189/93 H 172/93 H Pulse Oximetry 92 L 96 96 12/28/17 02:00 12/28/17 02:56 12/28/17 03:00 Temperature Pulse Rate 67 64 62 Respiratory Rate 15 18 24 Blood Pressure 158/76 H Pulse Oximetry 95 97 93 L 12/28/17 03:56 12/28/17 04:00 12/28/17 04:56 Temperature 98.5 F Pulse Rate 64 63 61 Respiratory Rate 13 14 13 Blood Pressure 166/83 H 160/79 H Pulse Oximetry 94 L 94 L 94 L 12/28/17 05:00 12/28/17 05:56 12/28/17 06:00 Temperature Pulse Rate 60 58 L 65 Respiratory Rate 13 14 27 H Blood Pressure 143/74 H Pulse Oximetry 94 L 93 L 92 L 12/28/17 06:56 12/28/17 07:00 12/28/17 07:56 Temperature Pulse Rate 58 L 58 L 67 Respiratory Rate 13 13 24 Blood Pressure 108/64 188/95 H Pulse Oximetry 93 L 92 L 98 12/28/17 08:00 12/28/17 08:02 12/28/17 08:24 Temperature 97.6 F Pulse Rate 69 82 62 Respiratory Rate 24 24 12 Blood Pressure 198/92 H 156/79 H Pulse Oximetry 97 95 93 L 12/28/17 08:56 12/28/17 09:00 12/28/17 09:02 Temperature Pulse Rate 63 64 68 Respiratory Rate 23 26 H 25 H Blood Pressure 152/118 H 168/90 H Pulse Oximetry 94 L 92 L 94 L 12/28/17 09:56 12/28/17 10:00 12/28/17 10:56 Temperature Pulse Rate 62 61 67 Respiratory Rate 24 21 28 H Blood Pressure 176/89 H 179/90 H Pulse Oximetry 93 L 96 94 L 12/28/17 11:00 12/28/17 12:20 12/28/17 12:43 Temperature Pulse Rate 65 65 76 Respiratory Rate 20 Blood Pressure 157/94 H 160/88 H Pulse Oximetry 95 12/28/17 12:54 12/28/17 12:55 12/28/17 13:00 Temperature Pulse Rate Respiratory Rate Blood Pressure 148/83 H Pulse Oximetry 92 L 92 L 91 L 12/28/17 14:00 12/28/17 15:00 12/28/17 15:11 Temperature Pulse Rate 71 65 73 Respiratory Rate 25 H 27 H 45 H Blood Pressure 183/98 H Pulse Oximetry 92 L 97 95 12/28/17 15:19 12/28/17 15:51 12/28/17 16:00 Temperature Pulse Rate 64 62 Respiratory Rate 16 28 H Blood Pressure 161/94 H Pulse Oximetry 96 12/28/17 16:03 12/28/17 16:04 12/28/17 16:48 Temperature 98.6 F Pulse Rate 61 62 Respiratory Rate 23 17 Blood Pressure 166/81 H 154/72 H Pulse Oximetry 91 L 12/28/17 17:00 12/28/17 17:48 12/28/17 17:57 Temperature Pulse Rate 70 69 67 Respiratory Rate 21 26 H 24 Blood Pressure 187/96 H 179/91 H Pulse Oximetry 92 L 91 L 95 12/28/17 18:00 Temperature Pulse Rate 69 Respiratory Rate 22 Blood Pressure Pulse Oximetry 93 L Intake & Output 12/28/17 12/28/17 12/29/17 06:59 18:59 06:59 Intake Total 2414 / 2414 925 / 925 Balance 2414 / 2414 925 / 925 Weight 53.3 kg Intake: IV 2294 / 2294 400 / 400 Sodium Chloride 23.4% Inj 188 2094 / 2094 200 / 200 MEQ In NS Inj 1,000 ML @ 60 mls /hr IV.CONT .[id number] [facility] Rx#: [id number] Maxipime Inj 2,000 MG In NS Inj 100 / 100 200 / 200 100 ML @ 200 mls/hr IV.SIG Q8H [facility] Rx#:[id number] Magnesium Sulfate Inj 2 GM In 100 / 100 NS Inj 96 ML @ 50 mls/hr IV.SIG UNSCH PRN Rx#:[id number] Oral 120 / 120 525 / 525 Other: # Voids 4 4 Date of Last Bowel Movement 12/27/17 12/25/17 # Bowel Movements 0 1 Narrative: GENERAL: Well-nourished, well-developed patient. There is facial malar rash SKIN: Warm and dry. HEAD: Normocephalic. Alopecia present EYES: No scleral icterus. No injection or drainage. NECK: Supple, trachea midline. No JVD or lymphadenopathy. CARDIOVASCULAR: Regular rate and rhythm without murmurs, gallops, or rubs. RESPIRATORY: Breath sounds equal bilaterally. No accessory muscle use. GASTROINTESTINAL: Abdomen soft, non-tender, nondistended. EXTREMITIES: 1+ edema in upper extremity NEUROLOGICAL: Awake, alert, and oriented x 3. Non-focal. Results - Lab Results 12/28/17 03:17 12/28/17 15:02 Most recent lab results Calcium 6.8 mg/dL (8.5-10.1) L* 12/28/17 03:17 Phosphorus 3.4 mg/dL (2.5-4.9) 12/25/17 01:05 EST Magnesium 1.8 mg/dL (1.5-2.5) 12/28/17 03:17 Assessment and Plan - Assessment (1) Hyponatremia Code(s): E87.1 - Hypo-osmolality and hyponatremia Status: Chronic (2) Diarrhea Code(s): R19.7 - Diarrhea, unspecified Status: Acute (3) Proteinuria Code(s): R80.9 - Proteinuria, unspecified Status: Acute (4) Pancytopenia Code(s): D61.818 - Other pancytopenia Status: Acute - Plan Patient has significant protein loss and I will order 24-hour urine for protein collection She may have lupus nephritis Kidney function are stable I talked to her about doing kidney biopsy He may have membranous nephropathy due to lupus She has pancytopenia however we can try a small dose of CellCept 500 mg twice daily Monitor renal functions and blood counts Her hyponatremia is due to multifactorial reasons liver dysfunction, nephrotic syndrome, SLE all contributing We will monitor along with you thank you
[2017-12-28 21:32] LABS: INR 1.1 Ratio; Prothrombin Time 10.8 sec (9.8-11.6)
[2017-12-28] MEDS: Enoxaparin Inj 40 MG/0.4 ML Syringe SQ SCH (22:13)
[2017-12-28] MEDS: Acetaminophen 325 MG Tablet PO PRN (23:11)
[2017-12-29] MEDS: Chlorhexidine Gluconate 2% 1 Pack (2 Cloths) TOPICAL SCH (04:25)
[2017-12-29] MEDS: metroNIDAZOLE 500 MG Tablet PO SCH ×3 (06:54→21:52)
[2017-12-29] MEDS: Sod Chloride 0.9% Inj 1,000 ML IV.CONT SCH ×4 (07:02→20:36)
[2017-12-29 07:27] LABS: Baso % (Auto) 0.2 % (0.0-2.0); Hematocrit 32.3 % (35.0-46.0); Hemoglobin 11.4 gm/dL (11.6-15.3); Lymph # (Auto) 0.3 th/mm3 (1.0-4.8); Lymph % (Auto) 5.6 % (9.0-44.0); Mean Corpuscular HGB Conc 35.2 % (32.0-36.0); Mean Corpuscular Hemoglobin 32.3 pg (27.0-34.0); Mean Corpuscular Volume 91.8 fL (80.0-100.0); Mean Platelet Volume 9.7 fL (7.0-11.0); Mono # (Auto) 0.3 th/mm3 (0.0-0.9); Mono % (Auto) 6.9 % (0.0-8.0); Neut # (Auto) 4.1 th/mm3 (1.8-7.7); Neut % (Auto) 87.3 % (16.0-70.0); Platelet Count 120 th/mm3 (150-450); Red Blood Count 3.52 mil/mm3 (4.00-5.30); Red Cell Distribution Width 12.3 % (11.6-17.2); White Blood Count 4.6 th/mm3 (4.0-11.0)
[2017-12-29 08:11] LABS: Anion Gap 11 meq/L (5-15); Blood Urea Nitrogen 13 mg/dL (7-18); Calcium 6.9 mg/dL (8.5-10.1); Carbon Dioxide 18.6 meq/L (21.0-32.0); Chloride 95 meq/L (98-107); Glomerular Filtration Rate Greater Than 89 mL/min (>89); Glucose,Random 129 mg/dL (74-106); Potassium 3.6 meq/L (3.5-5.1); Sodium 125 meq/L (136-145)
[2017-12-29 08:41] LABS: Calcium-Albumin Corrected 7.9 mg/dL (8.5-10.1); Total Protein 5.2 g/dL (6.4-8.2)
[2017-12-29] MEDS: amLODIPine 5 MG Tablet PO SCH (09:27)
[2017-12-29] MEDS: Sucralfate Liq 1 GM/10 ML UDC PO SCH ×4 (09:28→20:35)
[2017-12-29] MEDS: MethylPREDNISolone Sod Succinate Inj 125 MG/2 ML Vial IV.PUSH SCH ×2 (09:29→16:08)
--- NOTE | 2017-12-29 12:08 | P.PN ---
Subjective Interval history: Follow-up abdominal pain with watery diarrhea rule out ischemic bowel/elevated troponin I/SLE/hyponatremia December 29, 2017-patient seen and examined, reports some improvement of diarrhea. No chest pain or shortness of breath. Physical Exam Vital signs: Vital Signs 12/28/17 12:20 12/28/17 12:43 12/28/17 12:54 Temperature Pulse Rate 65 76 Respiratory Rate Blood Pressure 157/94 H 160/88 H Pulse Oximetry 92 L 12/28/17 12:55 12/28/17 13:00 12/28/17 14:00 Temperature Pulse Rate 71 Respiratory Rate 25 H Blood Pressure 148/83 H Pulse Oximetry 92 L 91 L 92 L 12/28/17 15:00 12/28/17 15:11 12/28/17 15:19 Temperature Pulse Rate 65 73 64 Respiratory Rate 27 H 45 H 16 Blood Pressure 183/98 H 161/94 H Pulse Oximetry 97 95 96 12/28/17 15:51 12/28/17 16:00 12/28/17 16:03 Temperature 98.6 F Pulse Rate 62 Respiratory Rate 28 H Blood Pressure 166/81 H Pulse Oximetry 12/28/17 16:04 12/28/17 16:48 12/28/17 17:00 Temperature Pulse Rate 61 62 70 Respiratory Rate 23 17 21 Blood Pressure 154/72 H Pulse Oximetry 91 L 92 L 12/28/17 17:48 12/28/17 17:57 12/28/17 18:00 Temperature Pulse Rate 69 67 69 Respiratory Rate 26 H 24 22 Blood Pressure 187/96 H 179/91 H Pulse Oximetry 91 L 95 93 L 12/28/17 20:00 12/29/17 00:00 12/29/17 01:30 Temperature 97.8 F 97.9 F Pulse Rate 86 64 Respiratory Rate 17 17 Blood Pressure 154/77 H 153/76 H Pulse Oximetry 94 L 93 L 94 L 12/29/17 04:00 12/29/17 05:44 12/29/17 08:00 Temperature 97.3 F L Pulse Rate 60 72 70 Respiratory Rate 20 18 Blood Pressure 157/94 H Pulse Oximetry 98 12/29/17 08:09 12/29/17 11:52 Temperature 97.7 F 97.7 F Pulse Rate 72 68 Respiratory Rate 19 22 Blood Pressure 137/81 171/83 H Pulse Oximetry 96 96 Intake & Output 12/28/17 12/29/17 12/29/17 18:59 06:59 18:59 Intake Total 925 / 925 1340 / 1340 1100 / 1100 Output Total 250 / 250 Balance 925 / 925 1090 / 1090 1100 / 1100 Weight 55.5 kg Intake: IV 400 / 400 1100 / 1100 1100 / 1100 NS Inj 1,000 ML @ 100 mls/hr IV 1000 / 1000 1000 / 1000 .CONT .Q10H [facility] Rx#:[id number] Sodium Chloride 23.4% Inj 188 200 / 200 MEQ In NS Inj 1,000 ML @ 60 mls /hr IV.CONT .[id number] [facility] Rx#: [id number] Maxipime Inj 2,000 MG In NS Inj 200 / 200 100 / 100 100 / 100 100 ML @ 200 mls/hr IV.SIG Q8H [facility] Rx#:[id number] Oral 525 / 525 240 / 240 Output: Urine 250 / 250 Other: # Voids 4 Date of Last Bowel Movement 12/25/17 12/29/17 # Bowel Movements 1 0 Narrative: GENERAL: Well-nourished, well-developed patient. SKIN: Warm and dry. +facial malar rash HEAD: Normocephalic. Alopecia present EYES: No scleral icterus. No injection or drainage. NECK: Supple, trachea midline. No JVD or lymphadenopathy. CARDIOVASCULAR: Regular rate and rhythm without murmurs, gallops, or rubs. RESPIRATORY: Breath sounds equal bilaterally. No accessory muscle use. GASTROINTESTINAL: Abdomen soft, non-tender, nondistended. EXTREMITIES: 1+ edema in upper extremity NEUROLOGICAL: Awake, alert, and oriented x 3. Non-focal. Results - Labs CBC & Chem 7: 12/29/17 06:00 12/29/17 06:00 Laboratory Results - last 24 hr 12/25/17 12/27/17 12/28/17 01:05 EST 10:23 15:02 WBC RBC Hgb Hct MCV MCH MCHC RDW Plt Count MPV Neut % (Auto) Lymph % (Auto) Williamson % (Auto) Eos % (Auto) Baso % (Auto) Neut # (Auto) Lymph # (Auto) Williamson # (Auto) Eos # (Auto) Baso # (Auto) WBC Differential Differential Comment PT INR Sodium 123 L* Potassium Chloride Carbon Dioxide Anion Gap BUN Creatinine Estimated GFR Random Glucose Calcium Prot Corrected Calcium Total Protein BETZY Screen Pos H Double Strand DNA Ab 338.0 H 12/28/17 12/29/17 12/29/17 20:00 06:00 06:00 WBC 4.6 RBC 3.52 L Hgb 11.4 L Hct 32.3 L MCV 91.8 MCH 32.3 MCHC 35.2 RDW 12.3 Plt Count 120 L MPV 9.7 Neut % (Auto) 87.3 H Lymph % (Auto) 5.6 L Williamson % (Auto) 6.9 Eos % (Auto) 0.0 Baso % (Auto) 0.2 Neut # (Auto) 4.1 Lymph # (Auto) 0.3 L Williamson # (Auto) 0.3 Eos # (Auto) 0.0 Baso # (Auto) 0.0 WBC Differential . Differential Comment Auto diff final PT 10.8 INR 1.1 Sodium 125 L Potassium 3.6 Chloride 95 L Carbon Dioxide 18.6 L Anion Gap 11 BUN 13 Creatinine 0.56 Estimated GFR Greater than 89 Random Glucose 129 H Calcium 6.9 L* Prot Corrected Calcium 7.9 L Total Protein 5.2 L BETZY Screen Double Strand DNA Ab Microbiology 12/24/17 23:23 Blood - Peripheral Aerobic Blood Culture - Final No growth in 5 days 12/24/17 23:23 Blood - Peripheral Anaerobic Blood Culture - Final No growth in 5 days 12/24/17 23:28 Blood - Peripheral Aerobic Blood Culture - Final No growth in 5 days 12/24/17 23:28 Blood - Peripheral Anaerobic Blood Culture - Final No growth in 5 days - Imaging Impressions Coronary Angiography CT 12/28/17 00:00 CONCLUSION: 1. No calcified coronary artery plaque or hemodynamically significant coronary artery stenosis. 2. Small to moderate bilateral pleural effusions with associated airspace consolidation in the lower lobes. 3. Trace pericardial effusion. 4. Trace ascites. Assessment and Plan - Plan 67-year-old female with Elevated troponin 2 D Echo with EF60-65%. Coronary CTA 12/28/17 with trace pericardial effusion otherwise unremarkable Aspirin 325 mg now on 81 mg p.o. daily. Does not have ACS symptoms Appreciate input from cardiology Diarrhea Pt reports [address] abd/pelvis - nonspecific edema and small ascites, seen previously. Patient has refused colonoscopy/EGD per GI stool C diff, Stool O and P, stool enteric pathogen ,Cryptosporidium Giardia and C. difficile all negative Patient has declined CTA abdomen Currently on empiric coverage with IV antibiotics including Flagyl 500 mg p.o. daily 8-hour and cefepime per GI Vascular surgery consulted however thinks it is unlikely acute or chronic ischemic bowel. Hyponatremia, chronic (>48 hours in onset) Proteinuria - on dipstick SLE nephritis? Urines osm/serum uric and urine sodium could be consistent with SIADH. Sodium appears to be correcting on a slow trend, would want to avoid correction >8 MEQ/ 24 hours. Monitor sodium q6 hours. Appreciate input from nephrology pending 24-hour urine protein collection Consider renal biopsy SLE - pancytopenia, proteinuria ?carditis - may be secondary to lupus flare. Check C3, C4, dsDNA Ab titer, ESR/CRP. on empiric steroids IV Solu-Medrol 60 mg every 8 hours, CellCept 500 mg twice daily Normal CRP, mildly elevated ESR Continue with aspirin 81 mg daily Hypertension Currently on Norvasc 5 mg daily Pancytopenia will monitor closely. PROPH: SCD for DVT prophylaxis. Lovenox 40 mg subcu daily, monitor and discontinue if platelet count less than 50. Protonix 40 mg p.o. daily
--- NOTE | 2017-12-29 12:45 | P.PNVS ---
Subjective Subjective/Hospital Course: Difficulty breathing overnight which has resolved. She currently did complain of diffuse aching abdominal pain and watery diarrhea. Objective Vital Signs / I&O: Vital Signs 12/28/17 12:43 12/28/17 12:54 12/28/17 12:55 Temperature Pulse Rate 76 Respiratory Rate Blood Pressure 160/88 H 148/83 H Pulse Oximetry 92 L 92 L 12/28/17 13:00 12/28/17 14:00 12/28/17 15:00 Temperature Pulse Rate 71 65 Respiratory Rate 25 H 27 H Blood Pressure Pulse Oximetry 91 L 92 L 97 12/28/17 15:11 12/28/17 15:19 12/28/17 15:51 Temperature Pulse Rate 73 64 Respiratory Rate 45 H 16 28 H Blood Pressure 183/98 H 161/94 H Pulse Oximetry 95 96 12/28/17 16:00 12/28/17 16:03 12/28/17 16:04 Temperature 98.6 F Pulse Rate 62 61 Respiratory Rate 23 Blood Pressure 166/81 H Pulse Oximetry 12/28/17 16:48 12/28/17 17:00 12/28/17 17:48 Temperature Pulse Rate 62 70 69 Respiratory Rate 17 21 26 H Blood Pressure 154/72 H 187/96 H Pulse Oximetry 91 L 92 L 91 L 12/28/17 17:57 12/28/17 18:00 12/28/17 20:00 Temperature 97.8 F Pulse Rate 67 69 86 Respiratory Rate 24 22 17 Blood Pressure 179/91 H 154/77 H Pulse Oximetry 95 93 L 94 L 12/29/17 00:00 12/29/17 01:30 12/29/17 04:00 Temperature 97.9 F Pulse Rate 64 60 Respiratory Rate 17 20 Blood Pressure 153/76 H Pulse Oximetry 93 L 94 L 12/29/17 05:44 12/29/17 08:00 12/29/17 08:09 Temperature 97.3 F L 97.7 F Pulse Rate 72 70 72 Respiratory Rate 18 19 Blood Pressure 157/94 H 137/81 Pulse Oximetry 98 96 12/29/17 11:52 12/29/17 12:02 Temperature 97.7 F Pulse Rate 68 75 Respiratory Rate 22 16 Blood Pressure 171/83 H Pulse Oximetry 96 95 Intake & Output 12/28/17 12/29/17 12/29/17 18:59 06:59 18:59 Intake Total 925 / 925 1340 / 1340 1100 / 1100 Output Total 250 / 250 Balance 925 / 925 1090 / 1090 1100 / 1100 Weight 55.5 kg Intake: IV 400 / 400 1100 / 1100 1100 / 1100 NS Inj 1,000 ML @ 100 mls/hr IV 1000 / 1000 1000 / 1000 .CONT .Q10H [facility]ON[facility] Rx#:[id number] Sodium Chloride 23.4% Inj 188 200 / 200 MEQ In NS Inj 1,000 ML @ 60 mls /hr IV.CONT .[id number] [facility] Rx#: [id number] Maxipime Inj 2,000 MG In NS Inj 200 / 200 100 / 100 100 / 100 100 ML @ 200 mls/hr IV.SIG Q8H [facility] Rx#:[id number] Oral 525 / 525 240 / 240 Output: Urine 250 / 250 Other: # Voids 4 Date of Last Bowel Movement 12/25/17 12/29/17 # Bowel Movements 1 0 Physical Exam: Abdomen soft mild tenderness noted in the epigastrium. There is no rebound or peritoneal signs. Laboratory Results - last 24 hr 12/27/17 12/28/17 12/28/17 10:23 15:02 20:00 WBC RBC Hgb Hct MCV MCH MCHC RDW Plt Count MPV Neut % (Auto) Lymph % (Auto) Hitchcock % (Auto) Eos % (Auto) Baso % (Auto) Neut # (Auto) Lymph # (Auto) Hitchcock # (Auto) Eos # (Auto) Baso # (Auto) WBC Differential Differential Comment PT 10.8 INR 1.1 Sodium 123 L* Potassium Chloride Carbon Dioxide Anion Gap BUN Creatinine Estimated GFR Random Glucose Calcium Prot Corrected Calcium Total Protein BETYZ Screen Pos H 12/29/17 12/29/17 06:00 06:00 WBC 4.6 RBC 3.52 L Hgb 11.4 L Hct 32.3 L MCV 91.8 MCH 32.3 MCHC 35.2 RDW 12.3 Plt Count 120 L MPV 9.7 Neut % (Auto) 87.3 H Lymph % (Auto) 5.6 L Hitchcock % (Auto) 6.9 Eos % (Auto) 0.0 Baso % (Auto) 0.2 Neut # (Auto) 4.1 Lymph # (Auto) 0.3 L Hitchcock # (Auto) 0.3 Eos # (Auto) 0.0 Baso # (Auto) 0.0 WBC Differential . Differential Comment Auto diff final PT INR Sodium 125 L Potassium 3.6 Chloride 95 L Carbon Dioxide 18.6 L Anion Gap 11 BUN 13 Creatinine 0.56 Estimated GFR Greater than 89 Random Glucose 129 H Calcium 6.9 L* Prot Corrected Calcium 7.9 L Total Protein 5.2 L BETZY Screen Microbiology 12/24/17 23:23 Aerobic Blood Culture - Final Blood - Peripheral No growth in 5 days Anaerobic Blood Culture - Final No growth in 5 days 12/24/17 23:28 Aerobic Blood Culture - Final Blood - Peripheral No growth in 5 days Anaerobic Blood Culture - Final No growth in 5 days Impressions Abdomen Ultrasound 12/28/17 00:00 CONCLUSION: 1. 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 Abdominal CT angiography is pending. 2. Mild celiac artery stenosis. Coronary Angiography CT 12/28/17 00:00 CONCLUSION: 1. No calcified coronary artery plaque or hemodynamically significant coronary artery stenosis. 2. Small to moderate bilateral pleural effusions with associated airspace consolidation in the lower lobes. 3. Trace pericardial effusion. 4. Trace ascites. Assessment and Plan - Assessment (1) Diarrhea Code(s): R19.7 - Diarrhea, unspecified Status: Acute - Plan Watery diarrhea Abdominal pain Rule out chronic mesenteric ischemia Questionable vasculitis I had a long discussion with the patient regarding her medical condition. She believes that all her symptoms are related to systemic lupus since she stopped her medication approximately 2 months ago. She currently refusing CT angiography of the abdomen pelvis and any invasive intervention. Her lupus medications were started today and she would like to hold off for a few days, if her symptoms persist she may agree to obtain a CT angiography and proceed with needed vascular interventions
--- NOTE | 2017-12-29 16:55 | P.PNGI ---
Subjective Interval history: Pt resting in bed, family at bedside States some mild abdominal pain, states some improvement with Tylenol but that pain is still present 2 BMs today, denies diarrhea, states they were soft Denies nausea and vomiting States poor appetite Had some rice, brought to her by her family Does not want to eat hospital food because it contains dairy <Lynette Simental - Last Filed: 12/29/17 16:49> Physical Exam Vital signs: Vital Signs 12/28/17 17:00 12/28/17 17:48 12/28/17 17:57 Temperature Pulse Rate 70 69 67 Respiratory Rate 21 26 H 24 Blood Pressure 187/96 H 179/91 H Pulse Oximetry 92 L 91 L 95 12/28/17 18:00 12/28/17 20:00 12/29/17 00:00 Temperature 97.8 F 97.9 F Pulse Rate 69 86 64 Respiratory Rate 22 17 17 Blood Pressure 154/77 H 153/76 H Pulse Oximetry 93 L 94 L 93 L 12/29/17 01:30 12/29/17 04:00 12/29/17 05:44 Temperature 97.3 F L Pulse Rate 60 72 Respiratory Rate 20 18 Blood Pressure 157/94 H Pulse Oximetry 94 L 98 12/29/17 08:00 12/29/17 08:09 12/29/17 11:52 Temperature 97.7 F 97.7 F Pulse Rate 70 72 68 Respiratory Rate 19 22 Blood Pressure 137/81 171/83 H Pulse Oximetry 96 96 12/29/17 12:00 12/29/17 12:02 12/29/17 16:00 Temperature Pulse Rate 77 75 79 Respiratory Rate 16 16 Blood Pressure Pulse Oximetry 95 Intake & Output 12/28/17 12/29/17 12/29/17 18:59 06:59 18:59 Intake Total 925 / 925 1340 / 1340 1200 / 1200 Output Total 250 / 250 Balance 925 / 925 1090 / 1090 1200 / 1200 Weight 55.5 kg Intake: IV 400 / 400 1100 / 1100 1200 / 1200 NS Inj 1,000 ML @ 100 mls/hr IV 1000 / 1000 1000 / 1000 .CONT .Q10H JONAS Rx#:[id number] Sodium Chloride 23.4% Inj 188 200 / 200 MEQ In NS Inj 1,000 ML @ 60 mls /hr IV.CONT .[id number] JONAS Rx#: [id number] Maxipime Inj 2,000 MG In NS Inj 200 / 200 100 / 100 200 / 200 100 ML @ 200 mls/hr IV.SIG Q8H JONAS Rx#:[id number] Oral 525 / 525 240 / 240 Output: Urine 250 / 250 Other: # Voids 4 Date of Last Bowel Movement 12/25/17 12/29/17 # Bowel Movements 1 0 - Constitutional no acute distress - Routine HEENT Exam Head: Present: normocephalic, atraumatic - Routine Respiratory Exam Absent: accessory muscle use - Routine Abdominal Exam Present: soft, normoactive bowel sounds, distended. Absent: tenderness - Routine Skin Exam Present: dry, warm - Routine Neurological Exam Present: alert, oriented X3 <Lynette Simental - Last Filed: 12/29/17 16:49> Vital signs: Vital Signs 12/29/17 00:00 12/29/17 01:30 12/29/17 04:00 Temperature 97.9 F Pulse Rate 64 60 Respiratory Rate 17 20 Blood Pressure 153/76 H Pulse Oximetry 93 L 94 L 12/29/17 05:44 12/29/17 08:00 12/29/17 08:09 Temperature 97.3 F L 97.7 F Pulse Rate 72 70 72 Respiratory Rate 18 19 Blood Pressure 157/94 H 137/81 Pulse Oximetry 98 96 12/29/17 11:52 12/29/17 12:00 12/29/17 12:02 Temperature 97.7 F Pulse Rate 68 77 75 Respiratory Rate 22 16 Blood Pressure 171/83 H Pulse Oximetry 96 95 12/29/17 16:00 12/29/17 16:51 12/29/17 20:00 Temperature 97.9 F Pulse Rate 79 71 Respiratory Rate 16 24 Blood Pressure 148/96 H Pulse Oximetry 97 92 L Intake & Output 12/29/17 12/29/17 12/30/17 06:59 18:59 06:59 Intake Total 1340 / 1340 1200 / 1200 1000 / 1000 Output Total 250 / 250 Balance 1090 / 1090 1200 / 1200 1000 / 1000 Weight 55.5 kg Intake: IV 1100 / 1100 1200 / 1200 1000 / 1000 NS Inj 1,000 ML @ 100 mls/hr IV 1000 / 1000 1000 / 1000 1000 / 1000 .CONT .Q10H JONAS Rx#:[id number] Maxipime Inj 2,000 MG In NS Inj 100 / 100 200 / 200 100 ML @ 200 mls/hr IV.SIG Q8H JONAS Rx#:[id number] Oral 240 / 240 Output: Urine 250 / 250 Other: Date of Last Bowel Movement 12/29/17 # Bowel Movements 0 <CindyMoira - Last Filed: 12/29/17 21:39> Results - Labs CBC & Chem 7: 12/29/17 06:00 12/29/17 06:00 Laboratory Results - last 24 hr 12/28/17 12/29/17 12/29/17 20:00 06:00 06:00 WBC 4.6 RBC 3.52 L Hgb 11.4 L Hct 32.3 L MCV 91.8 MCH 32.3 MCHC 35.2 RDW 12.3 Plt Count 120 L MPV 9.7 Neut % (Auto) 87.3 H Lymph % (Auto) 5.6 L [place] % (Auto) 6.9 Eos % (Auto) 0.0 Baso % (Auto) 0.2 Neut # (Auto) 4.1 Lymph # (Auto) 0.3 L [place] # (Auto) 0.3 Eos # (Auto) 0.0 Baso # (Auto) 0.0 WBC Differential . Differential Comment Auto diff final PT 10.8 INR 1.1 Sodium 125 L Potassium 3.6 Chloride 95 L Carbon Dioxide 18.6 L Anion Gap 11 BUN 13 Creatinine 0.56 Estimated GFR Greater than 89 Random Glucose 129 H Calcium 6.9 L* Prot Corrected Calcium 7.9 L Total Protein 5.2 L Microbiology 12/24/17 23:23 Blood - Peripheral Aerobic Blood Culture - Final No growth in 5 days 12/24/17 23:23 Blood - Peripheral Anaerobic Blood Culture - Final No growth in 5 days 12/24/17 23:28 Blood - Peripheral Aerobic Blood Culture - Final No growth in 5 days 12/24/17 23:28 Blood - Peripheral Anaerobic Blood Culture - Final No growth in 5 days <Lynette Simental - Last Filed: 12/29/17 16:49> - Labs CBC & Chem 7: 12/29/17 06:00 12/29/17 06:00 Laboratory Results - last 24 hr 12/29/17 12/29/17 06:00 06:00 WBC 4.6 RBC 3.52 L Hgb 11.4 L Hct 32.3 L MCV 91.8 MCH 32.3 MCHC 35.2 RDW 12.3 Plt Count 120 L MPV 9.7 Neut % (Auto) 87.3 H Lymph % (Auto) 5.6 L [place] % (Auto) 6.9 Eos % (Auto) 0.0 Baso % (Auto) 0.2 Neut # (Auto) 4.1 Lymph # (Auto) 0.3 L [place] # (Auto) 0.3 Eos # (Auto) 0.0 Baso # (Auto) 0.0 WBC Differential . Differential Comment Auto diff final Sodium 125 L Potassium 3.6 Chloride 95 L Carbon Dioxide 18.6 L Anion Gap 11 BUN 13 Creatinine 0.56 Estimated GFR Greater than 89 Random Glucose 129 H Calcium 6.9 L* Prot Corrected Calcium 7.9 L Total Protein 5.2 L Microbiology 12/24/17 23:23 Blood - Peripheral Aerobic Blood Culture - Final No growth in 5 days 12/24/17 23:23 Blood - Peripheral Anaerobic Blood Culture - Final No growth in 5 days 12/24/17 23:28 Blood - Peripheral Aerobic Blood Culture - Final No growth in 5 days 12/24/17 23:28 Blood - Peripheral Anaerobic Blood Culture - Final No growth in 5 days <Moira White - Last Filed: 12/29/17 21:39> Assessment and Plan - Plan Assessment: - Abdominal bloating with diarrhea- reported up to 12 loose stools a day, denies any melena or hematochezia. Denies previous EGD or colonoscopy. Pt has refused EGD and colonoscopy. C. Diff negative. Ova and parasites stool negative. Enteric pathogens stool negative. CT abdomen/pelvis 12/24 --> nonspecific edema and small ascites. Nothing organized or drainable. Similar findings were seen previously. No focal inflammatory changes are demonstrated. No obstruction. Mild thickening of the intralobular septa of both lung bases suggesting mild pulmonary edema. Heart is enlarged. No pleural effusion. Previously seen pericardial effusion is no longer present. 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 Pt has been advised to have CTA abdomen/pelvis but first refused because she did not want to be stuck multiple times for IV access for IV contrast and now states her PCP has advised against the exam because of the effect the IV contrast will have on her kidneys - Systemic lupus erythematous- Was not on treatment at time of admission, was previously on Plaquenil and Prednisone Has been started on IV Solumedrol - Proteinuria ? lupus nephritis- nephrology has been consulted - Elevated troponin- Echo- normal LVEF, pt declined further cardiac testing, later agreed to CTA chest - Hyponatremia - nephrology consulted - Pancytopenia- possibly secondary to lupus flare (12/29) Appreciate vascular surgery input, pt still refusing CTA abd/pelvis. Questionable vasculitis vs chronic mesenteric ischemia. Nephrology now following, additional labs and 24 hour urine ordered , possible kidney biopsy. Started on Cell Cept today. Pt does reports some mild abdominal pain, some relief with Tylenol but pain is still present. Denies nausea and vomiting. States very poor appetite. Will not eat hospital food because it contains dairy, her family has been bringing some food from home. Also reports abdominal bloating, abdomen does appear mildly distended but soft and bowel sounds are active. Pt is complaining of some new swelling to her knees. Plan: Appreciate vascular surgery input Diet as tolerated Allergy profile Celiac profile CRP Pt would benefit from rheumatology consult, defer to primary team Refusing CTA abdomen/pelvis Refusing EGD/colonoscopy Protonix Carafate Cardiology following Nephrology following Electrolyte replacement per primary team Further recommendations based on clinical course and pt compliance This patient has been seen and examined by myself and Dr. White and this note is written on her behalf <Lynette Simental - Last Filed: 12/29/17 16:49> - Attending Attestation seen, examined agree with above fu labs , stools we will discuss with her pcp, as she seems to follow her instruction closely <Moira White - Last Filed: 12/29/17 21:39>
[2017-12-29] MEDS: Enoxaparin Inj 40 MG/0.4 ML Syringe SQ SCH (20:31)
[2017-12-30] MEDS: MethylPREDNISolone Sod Succinate Inj 125 MG/2 ML Vial IV.PUSH SCH ×4 (00:01→23:39)
[2017-12-30] MEDS: Sod Chloride 0.9% Inj 1,000 ML IV.CONT SCH ×2 (00:15→06:45)
[2017-12-30] MEDS: metroNIDAZOLE 500 MG Tablet PO SCH ×3 (05:00→21:53)
[2017-12-30 07:10] LABS: Albumin 2.3 g/dL (3.4-5.0); Calcium 7.2 mg/dL (8.5-10.1); Carbon Dioxide 16.4 meq/L (21.0-32.0); Potassium 3.3 meq/L (3.5-5.1); Total Protein 6.4 g/dL (6.4-8.2)
[2017-12-30] MEDS: amLODIPine 5 MG Tablet PO SCH (08:37)
[2017-12-30] MEDS: Sucralfate Liq 1 GM/10 ML UDC PO SCH ×4 (08:37→21:52)
--- NOTE | 2017-12-30 10:21 | P.PN ---
Subjective Interval history: Follow-up abdominal pain with watery diarrhea rule out chronic ischemic bowel/ elevated troponin I/SLE/hyponatremia December 29, 2017-patient seen and examined, reports some improvement of diarrhea. No chest pain or shortness of breath. December 30, 2017-patient seen and examined, still complained of abdominal pain along with watery diarrhea. Patient is now willing for CTA abdomen/pelvics Physical Exam Vital signs: Vital Signs 12/29/17 11:52 12/29/17 12:00 12/29/17 12:02 Temperature 97.7 F Pulse Rate 68 77 75 Respiratory Rate 22 16 Blood Pressure 171/83 H Pulse Oximetry 96 95 12/29/17 16:00 12/29/17 16:51 12/29/17 20:00 Temperature 97.9 F 97.6 F Pulse Rate 79 71 72 Respiratory Rate 16 24 18 Blood Pressure 148/96 H 138/74 Pulse Oximetry 97 93 L 12/30/17 00:00 12/30/17 02:44 12/30/17 04:00 Temperature 98 F Pulse Rate 74 80 67 Respiratory Rate 18 20 Blood Pressure 157/88 H Pulse Oximetry 97 12/30/17 07:33 12/30/17 07:40 12/30/17 08:00 Temperature 97.7 F Pulse Rate 80 81 100 H Respiratory Rate 18 16 Blood Pressure 168/88 H Pulse Oximetry 95 95 Intake & Output 12/29/17 12/30/17 12/30/17 18:59 06:59 18:59 Intake Total 1200 / 1200 2185 / 2185 100 / 100 Output Total 750 / 750 Balance 1200 / 1200 1435 / 1435 100 / 100 Weight 57.6 kg Intake: IV 1200 / 1200 2125 / 2125 100 / 100 NS Inj 1,000 ML @ 100 mls/hr IV 1000 / 1000 2024 / 202 .CONT .Q10H JONAS Rx#:[id number] Maxipime Inj 2,000 MG In NS Inj 200 / 200 100 / 100 100 / 100 100 ML @ 200 mls/hr IV.SIG Q8H JONAS Rx#:[id number] Oral 60 / 60 Output: Urine 750 / 750 Other: Date of Last Bowel Movement 12/29/17 # Bowel Movements 0 Narrative: GENERAL: Well-nourished, well-developed patient. SKIN: Warm and dry. +facial malar rash HEAD: Normocephalic. Alopecia present EYES: No scleral icterus. No injection or drainage. NECK: Supple, trachea midline. No JVD or lymphadenopathy. CARDIOVASCULAR: Regular rate and rhythm without murmurs, gallops, or rubs. RESPIRATORY: Breath sounds equal bilaterally. No accessory muscle use. GASTROINTESTINAL: Abdomen soft, non-tender, nondistended. EXTREMITIES: 1+ edema in upper extremity NEUROLOGICAL: Awake, alert, and oriented x 3. Non-focal. Results - Labs CBC & Chem 7: 12/29/17 06:00 12/30/17 04:58 Laboratory Results - last 24 hr 12/30/17 04:58 Sodium 124 L* Potassium 3.3 L Chloride 94 L Carbon Dioxide 16.4 L Anion Gap 14 BUN 14 Creatinine 0.70 Estimated GFR 83 L Random Glucose 147 H Calcium 7.2 L* Prot Corrected Calcium 7.6 L Total Bilirubin 0.3 AST 183 H ALT 145 H Alkaline Phosphatase 55 Total Protein 6.4 D Albumin 2.3 L Microbiology 12/24/17 23:23 Blood - Peripheral Aerobic Blood Culture - Final No growth in 5 days 12/24/17 23:23 Blood - Peripheral Anaerobic Blood Culture - Final No growth in 5 days 12/24/17 23:28 Blood - Peripheral Aerobic Blood Culture - Final No growth in 5 days 12/24/17 23:28 Blood - Peripheral Anaerobic Blood Culture - Final No growth in 5 days Assessment and Plan - Plan 67-year-old female with Elevated troponin 2 D Echo with EF60-65%. Coronary CTA 12/28/17 with trace pericardial effusion otherwise unremarkable Aspirin 325 mg now on 81 mg p.o. daily. Does not have ACS symptoms Appreciate input from cardiology Diarrhea Pt reports [address] abd/pelvis - nonspecific edema and small ascites, seen previously. Patient has refused colonoscopy/EGD per GI stool C diff, Stool O and P, stool enteric pathogen ,Cryptosporidium Giardia and C. difficile all negative Patient has declined CTA abdomen Currently on empiric coverage with IV antibiotics including Flagyl 500 mg p.o. daily 8-hour and cefepime per GI Vascular surgery consulted. Need to rule out Chronic mesenteric ischemia versus vasculitis Patient is now willing for CTA abdomen/pelvis Hyponatremia, chronic (>48 hours in onset) Proteinuria - on dipstick SLE nephritis? Urines osm/serum uric and urine sodium could be consistent with SIADH. Sodium appears to be correcting on a slow trend, would want to avoid correction >8 MEQ/ 24 hours. Monitor sodium q6 hours. Appreciate input from nephrology pending 24-hour urine protein collection Consider renal biopsy Hypokalemia Give potassium 60 mEq x1 now SLE - pancytopenia, proteinuria ?carditis - may be secondary to lupus flare. Check C3, C4, dsDNA Ab titer, ESR/CRP. on empiric steroids IV Solu-Medrol 60 mg every 8 hours, CellCept 500 mg twice daily Normal CRP, mildly elevated ESR Continue with aspirin 81 mg daily Hypertension Currently on Norvasc 5 mg daily Pancytopenia monitor closely. PROPH: SCD for DVT prophylaxis. Lovenox 40 mg subcu daily, monitor and discontinue if platelet count less than 50. Protonix 40 mg p.o. daily
[2017-12-30] MEDS: Acetaminophen 325 MG Tablet PO PRN ×3 (10:22→21:53)
--- NOTE | 2017-12-30 13:34 | P.PNGI ---
Subjective Interval history: Patient laying supine in bed Family sitting at bedside Patient reports continued lower abdominal pain despite Tylenol administration Reports one BM today, soft no bleeding States she agrees to have CTA of abdomen and pelvis due to ongoing symptoms <Latosha Connor - Last Filed: 12/30/17 13:27> Physical Exam Vital signs: Vital Signs 12/29/17 16:00 12/29/17 16:51 12/29/17 20:00 Temperature 97.9 F 97.6 F Pulse Rate 79 71 72 Respiratory Rate 16 24 18 Blood Pressure 148/96 H 138/74 Pulse Oximetry 97 93 L 12/30/17 00:00 12/30/17 02:44 12/30/17 04:00 Temperature 98 F Pulse Rate 74 80 67 Respiratory Rate 18 20 Blood Pressure 157/88 H Pulse Oximetry 97 12/30/17 07:33 12/30/17 07:40 12/30/17 08:00 Temperature 97.7 F Pulse Rate 80 81 100 H Respiratory Rate 18 16 Blood Pressure 168/88 H Pulse Oximetry 95 95 12/30/17 11:29 12/30/17 11:59 12/30/17 12:00 Temperature 97.7 F 97.9 F Pulse Rate 78 64 87 Respiratory Rate 18 16 16 Blood Pressure 154/78 H 158/81 H Pulse Oximetry 95 98 Intake & Output 12/29/17 12/30/17 12/30/17 18:59 06:59 18:59 Intake Total 1200 / 1200 2185 / 2185 100 / 100 Output Total 750 / 750 Balance 1200 / 1200 1435 / 1435 100 / 100 Weight 57.6 kg Intake: IV 1200 / 1200 2125 / 2125 100 / 100 NS Inj 1,000 ML @ 100 mls/hr IV 1000 / 1000 2024 / 202 .CONT .Q10H JONAS Rx#:[id number] Maxipime Inj 2,000 MG In NS Inj 200 / 200 100 / 100 100 / 100 100 ML @ 200 mls/hr IV.SIG Q8H JONAS Rx#:[id number] Oral 60 / 60 Output: Urine 750 / 750 Other: Date of Last Bowel Movement 12/29/17 # Bowel Movements 0 - Constitutional mild distress - Routine HEENT Exam Head: Present: normocephalic - Routine Respiratory Exam Present: CTA bilaterally. Absent: accessory muscle use - Routine Abdominal Exam Present: soft, normoactive bowel sounds, distended. Absent: tenderness, firm - Routine Skin Exam Present: dry, warm - Routine Neurological Exam Present: alert - Routine Psychiatric Exam Present: normal affect, cooperative <Latosha Connor - Last Filed: 12/30/17 13:27> Vital signs: Vital Signs 12/29/17 16:51 12/29/17 20:00 12/30/17 00:00 Temperature 97.9 F 97.6 F 98 F Pulse Rate 71 72 74 Respiratory Rate 24 18 18 Blood Pressure 148/96 H 138/74 157/88 H Pulse Oximetry 97 93 L 97 12/30/17 02:44 12/30/17 04:00 12/30/17 07:33 Temperature 97.7 F Pulse Rate 80 67 80 Respiratory Rate 20 18 Blood Pressure 168/88 H Pulse Oximetry 95 12/30/17 07:40 12/30/17 08:00 12/30/17 11:29 Temperature 97.7 F Pulse Rate 81 100 H 78 Respiratory Rate 16 18 Blood Pressure 154/78 H Pulse Oximetry 95 95 12/30/17 11:59 12/30/17 12:00 12/30/17 16:00 Temperature 97.9 F 97.3 F L Pulse Rate 64 70 88 Respiratory Rate 16 16 16 Blood Pressure 158/81 H 147/93 H Pulse Oximetry 98 98 12/30/17 16:08 Temperature Pulse Rate 88 Respiratory Rate 16 Blood Pressure Pulse Oximetry Intake & Output 12/29/17 12/30/17 12/30/17 18:59 06:59 18:59 Intake Total 1200 / 1200 2185 / 2185 800 / 800 Output Total 750 / 750 Balance 1200 / 1200 1435 / 1435 800 / 800 Weight 57.6 kg Intake: IV 1200 / 1200 2125 / 2125 800 / 800 NS Inj 1,000 ML @ 100 mls/hr IV 1000 / 1000 2025 / 2025 600 / 600 .CONT .Q10H JONAS Rx#:[id number] Maxipime Inj 2,000 MG In NS Inj 200 / 200 100 / 100 200 / 200 100 ML @ 200 mls/hr IV.SIG Q8H JONAS Rx#:[id number] Oral 60 / 60 Output: Urine 750 / 750 Other: Date of Last Bowel Movement 12/29/17 # Bowel Movements 0 <Moira White - Last Filed: 12/30/17 16:42> Results - Labs CBC & Chem 7: 12/29/17 06:00 12/30/17 04:58 Laboratory Results - last 24 hr 12/30/17 12/30/17 04:58 07:45 Sodium 124 L* Potassium 3.3 L Chloride 94 L Carbon Dioxide 16.4 L Anion Gap 14 BUN 14 Creatinine 0.70 Estimated GFR 83 L Random Glucose 147 H Calcium 7.2 L* Prot Corrected Calcium 7.6 L Total Bilirubin 0.3 AST 183 H ALT 145 H Alkaline Phosphatase 55 Total Protein 6.4 D Albumin 2.3 L Ur 24 Hour Volume 725 Ur Total Protein 24 Hr 2709 H Microbiology 12/24/17 23:23 Blood - Peripheral Aerobic Blood Culture - Final No growth in 5 days 12/24/17 23:23 Blood - Peripheral Anaerobic Blood Culture - Final No growth in 5 days 12/24/17 23:28 Blood - Peripheral Aerobic Blood Culture - Final No growth in 5 days 12/24/17 23:28 Blood - Peripheral Anaerobic Blood Culture - Final No growth in 5 days <Latosha Connor - Last Filed: 12/30/17 13:27> - Labs CBC & Chem 7: 12/29/17 06:00 12/30/17 04:58 Laboratory Results - last 24 hr 12/27/17 12/30/17 12/30/17 10:23 04:58 07:45 Puncture Site Patient Temperature O2 Saturation ABG pH ABG pCO2 ABG pO2 ABG HCO3 ABG O2 Content ABG Base Excess ABG Methemoglobin Denny Test Hemoglobin Carboxyhemoglobin O2 Delivery Device Liter Flow Critical Value Sodium 124 L* Potassium 3.3 L Chloride 94 L Carbon Dioxide 16.4 L Anion Gap 14 BUN 14 Creatinine 0.70 Estimated GFR 83 L Random Glucose 147 H Lactic Acid Calcium 7.2 L* Prot Corrected Calcium 7.6 L Total Bilirubin 0.3 AST 183 H ALT 145 H Alkaline Phosphatase 55 Total Protein 6.4 D Albumin 2.3 L Ur 24 Hour Volume 725 Ur Total Protein 24 Hr 2709 H BETZY Titer 1:160 H BETZY Pattern Diffuse H BETZY Interpretation 12/30/17 12/30/17 15:47 16:25 Puncture Site Right radial Patient Temperature 98.6 O2 Saturation 95 ABG pH 7.42 ABG pCO2 26 L ABG pO2 93 ABG HCO3 17 L ABG O2 Content 17.0 ABG Base Excess -7.1 L ABG Methemoglobin 1.6 Denny Test Present Hemoglobin 12.7 Carboxyhemoglobin 0.5 O2 Delivery Device Nasal cannula Liter Flow 3.00 Critical Value No Sodium Potassium Chloride Carbon Dioxide Anion Gap BUN Creatinine Estimated GFR Random Glucose Lactic Acid 1.1 Calcium Prot Corrected Calcium Total Bilirubin AST ALT Alkaline Phosphatase Total Protein Albumin Ur 24 Hour Volume Ur Total Protein 24 Hr BETZY Titer BETZY Pattern BETZY Interpretation - Imaging Impressions Abdomen/Pelvis CTA 12/30/17 00:00 CONCLUSION: 1. No aortic aneurysm or hemodynamically significant stenosis with patent iliac arteries bilaterally. 2. The visceral arteries appear patent without significant flow-limiting stenosis. 3. Portal vein and very central mesenteric veins are patent. 4. Moderate bilateral pleural effusions with associated likely compressive atelectasis in the lower lobes. 5. Diffuse anasarca and small amount of ascites with fluid primarily along the margins of the liver. 6. Nonspecific circumferential wall thickening involving several loops of small bowel. Although nonspecific this may be related to patient's ascites/ hypoalbuminemia. <Moira White - Last Filed: 12/30/17 16:42> Assessment and Plan - Plan Assessment: - Abdominal bloating with diarrhea- reported up to 12 loose stools a day, denies any melena or hematochezia. Denies previous EGD or colonoscopy. Pt has refused EGD and colonoscopy. C. Diff negative. Ova and parasites stool negative. Enteric pathogens stool negative. CT abdomen/pelvis 12/24 --> nonspecific edema and small ascites. Nothing organized or drainable. Similar findings were seen previously. No focal inflammatory changes are demonstrated. No obstruction. Mild thickening of the intralobular septa of both lung bases suggesting mild pulmonary edema. Heart is enlarged. No pleural effusion. Previously seen pericardial effusion is no longer present. 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 Pt has been advised to have CTA abdomen/pelvis but first refused because she did not want to be stuck multiple times for IV access for IV contrast and now states her PCP has advised against the exam because of the effect the IV contrast will have on her kidneys - Systemic lupus erythematous- Was not on treatment at time of admission, was previously on Plaquenil and Prednisone Has been started on IV Solumedrol - Proteinuria ? lupus nephritis- nephrology has been consulted - Elevated troponin- Echo- normal LVEF, pt declined further cardiac testing, later agreed to CTA chest - Hyponatremia - nephrology consulted - Pancytopenia- possibly secondary to lupus flare (12/29) Appreciate vascular surgery input, pt still refusing CTA abd/pelvis. Questionable vasculitis vs chronic mesenteric ischemia. Nephrology now following, additional labs and 24 hour urine ordered , possible kidney biopsy. Started on Cell Cept today. Pt does reports some mild abdominal pain, some relief with Tylenol but pain is still present. Denies nausea and vomiting. States very poor appetite. Will not eat hospital food because it contains dairy, her family has been bringing some food from home. Also reports abdominal bloating, abdomen does appear mildly distended but soft and bowel sounds are active. Pt is complaining of some new swelling to her knees. 12/30/2017 Patient agrees to have CTA abdomen and pelvis done today. Discussed need to evaluate for possible mesenteric ischemia. Patient continues to have mild lower abdominal pain despite administration of Tylenol. Denies nausea vomiting. 12/29/2017 hemoglobin 11.4 hematocrit 32.3 Plan -Diet as tolerated -Immunology panel pending -Celiac panel pending -PPI/Carafate -CTA abdomen and pelvis pending -Vascular, cardiology and nephrology following -Supportive care -Further recommendations to follow based on patient status and findings This patient has been seen and examined by myself and Dr. White and this note is written on her behalf - Attending Attestation Dr. White <Latosha Connor - Last Filed: 12/30/17 13:27> - Attending Attestation seen, examined agree with above cta noted mild increase in lfts-we will order hida scan change in behavior, difficulty answering questions and concentrating-oriented times 3, daughter at bedside discussed with medical team-possible steroid effect ? decreased appetite today <Moira White - Last Filed: 12/30/17 16:42>
--- NOTE | 2017-12-30 14:36 | CT ---
EXAM DATE: 12/30/2017 2:25 PM EST AGE/SEX: 67 years / Female INDICATIONS: Abdominal pain CLINICAL DATA: This is the patient's initial encounter. Patient reports that signs and symptoms have been present for 4 - 6 days and indicates a pain score of 7/10. MEDICAL/SURGICAL HISTORY: Lupus. None. RADIATION DOSE: 14.68 CTDI (mGy) COMPARISON: [facility] [place], CT ABDOMEN & PELVIS W CONTRAST, 12/24/2017. . TECHNIQUE: Volumetric scanning was performed using a multi-row detector CT scanner during bolus infu nic of 100 ml Omnipaque 350 (iohexol) nonionic water-soluble contrast as a single exam dose. . The data was post processed with a variety of visualization algorithms including full volume maximum int ensity projection, multi-planar sliding thin slab reformation, curved planar reformation, and surface rendering techniques. Using automated exposure control and adjustment of the mA and/or kV according to patient size, radiation dose was kept as low as reasonably achievable to obtain optimal diagnosti c quality images. DICOM format image data is available electronically for review and comparison. FINDINGS: Angiographic Findings: Abdominal Aorta: Mild atherosclerotic calcifications of the infrarenal aorta without significant kasie w-limiting stenosis or aneurysm. Iliacs: The iliac arteries are patent and non-aneurysmal Renal Arteries: Single patent renal arteries. Mesenteric Arteries: Celiac, SMA, and FRED are patent. Portal vein and central mesenteric veins are pa tent. General Findings: LOWER LUNGS: Moderate bilateral pleural effusions with associated airspace consolidation at the lung bases. LIVER: Liver demonstrates homogeneous density without significant intrahepatic ductal dilatation. Th ere is a subcentimeter hypodense lesion in the anterior right lobe of the liver which is too small to fully characterize. Hyperdense material in the gallbladder likely reflects sludge/small stones. Gall bladder is moderately distended. There is a small amount of ascites with free fluid predominantly leonid rounding the liver. SPLEEN: Homogeneous density without enlargement. PANCREAS: Unremarkable without mass or calcification. KIDNEYS: Kidneys demonstrate symmetrical enhancement and are symmetrical in size without evidence fo r radiopaque renal calculi or hydronephrosis. ADRENAL GLANDS: Unremarkable. BOWEL/MESENTERY: The loops of small bowel demonstrate mild diffuse circumferential wall thickening. No evidence for obstruction. Bowel otherwise appear unremarkable. No focal drainable fluid collection . No pneumatosis or free air. ABDOMINAL WALL: Diffuse anasarca. RETROPERITONEUM: No evidence of adenopathy in the retrocrural, para-aortic, or deep pelvic regions. BLADDER: Moderately distended but otherwise unremarkable. REPRODUCTIVE: No abnormal masses or calcifications seen. BONY STRUCTURES: No focal lytic or blastic bony lesions. CONCLUSION: 1. No aortic aneurysm or hemodynamically significant stenosis with patent iliac arteries bilaterally . 2. The visceral arteries appear patent without significant flow-limiting stenosis. 3. Portal vein and very central mesenteric veins are patent. 4. Moderate bilateral pleural effusions with associated likely compressive atelectasis in the lower lobes. 5. Diffuse anasarca and small amount of ascites with fluid primarily along the margins of the liver. 6. Nonspecific circumferential wall thickening involving several loops of small bowel. Although nons pecific this may be related to patient's ascites/hypoalbuminemia. Electronically signed by: Jerad Child MD 12/30/2017 2:35 PM EST
--- NOTE | 2017-12-30 14:53 | P.PNVS ---
Subjective Subjective/Hospital Course: C/O abdominal pain, most in RUQ Objective Vital Signs / I&O: Vital Signs 12/29/17 16:00 12/29/17 16:51 12/29/17 20:00 Temperature 97.9 F 97.6 F Pulse Rate 79 71 72 Respiratory Rate 16 24 18 Blood Pressure 148/96 H 138/74 Pulse Oximetry 97 93 L 12/30/17 00:00 12/30/17 02:44 12/30/17 04:00 Temperature 98 F Pulse Rate 74 80 67 Respiratory Rate 18 20 Blood Pressure 157/88 H Pulse Oximetry 97 12/30/17 07:33 12/30/17 07:40 12/30/17 08:00 Temperature 97.7 F Pulse Rate 80 81 100 H Respiratory Rate 18 16 Blood Pressure 168/88 H Pulse Oximetry 95 95 12/30/17 11:29 12/30/17 11:59 12/30/17 12:00 Temperature 97.7 F 97.9 F Pulse Rate 78 64 70 Respiratory Rate 18 16 16 Blood Pressure 154/78 H 158/81 H Pulse Oximetry 95 98 Intake & Output 12/29/17 12/30/17 12/30/17 18:59 06:59 18:59 Intake Total 1200 / 1200 2185 / 2185 100 / 100 Output Total 750 / 750 Balance 1200 / 1200 1435 / 1435 100 / 100 Weight 57.6 kg Intake: IV 1200 / 1200 2125 / 2125 100 / 100 NS Inj 1,000 ML @ 100 mls/hr IV 1000 / 1000 2025 / 2025 .CONT .Q10H JONAS Rx#:[id number] Maxipime Inj 2,000 MG In NS Inj 200 / 200 100 / 100 100 / 100 100 ML @ 200 mls/hr IV.SIG Q8H JONAS Rx#:[id number] Oral 60 / 60 Output: Urine 750 / 750 Other: Date of Last Bowel Movement 12/29/17 # Bowel Movements 0 Physical Exam: Diffuse TTP worse in RUQ no R, NO PS Laboratory Results - last 24 hr 12/30/17 12/30/17 04:58 07:45 Sodium 124 L* Potassium 3.3 L Chloride 94 L Carbon Dioxide 16.4 L Anion Gap 14 BUN 14 Creatinine 0.70 Estimated GFR 83 L Random Glucose 147 H Calcium 7.2 L* Prot Corrected Calcium 7.6 L Total Bilirubin 0.3 AST 183 H ALT 145 H Alkaline Phosphatase 55 Total Protein 6.4 D Albumin 2.3 L Ur 24 Hour Volume 725 Ur Total Protein 24 Hr 2709 H Microbiology 12/24/17 23:23 Aerobic Blood Culture - Final Blood - Peripheral No growth in 5 days Anaerobic Blood Culture - Final No growth in 5 days 12/24/17 23:28 Aerobic Blood Culture - Final Blood - Peripheral No growth in 5 days Anaerobic Blood Culture - Final No growth in 5 days Impressions Abdomen/Pelvis CTA 12/30/17 00:00 CONCLUSION: 1. No aortic aneurysm or hemodynamically significant stenosis with patent iliac arteries bilaterally. 2. The visceral arteries appear patent without significant flow-limiting stenosis. 3. Portal vein and very central mesenteric veins are patent. 4. Moderate bilateral pleural effusions with associated likely compressive atelectasis in the lower lobes. 5. Diffuse anasarca and small amount of ascites with fluid primarily along the margins of the liver. 6. Nonspecific circumferential wall thickening involving several loops of small bowel. Although nonspecific this may be related to patient's ascites/ hypoalbuminemia. Assessment and Plan - Assessment (1) Diarrhea Code(s): R19.7 - Diarrhea, unspecified Status: Acute - Plan Watery diarrhea Abdominal pain Rule out chronic mesenteric ischemia Questionable vasculitis CTA reviewed Patient SMA, and CA vessels, no significant stenosis No vascular surgery needed at this time GB wall thickened and distended on CTA, ? cholecystits D/W Dr. Caldwell, will obtain HIDA scan
--- NOTE | 2017-12-30 16:09 | P.PNNP ---
Subjective Interval history: Patient complain of anxiety, cannot sleep, edema Physical Exam Vital signs: Vital Signs 12/29/17 16:51 12/29/17 20:00 12/30/17 00:00 Temperature 97.9 F 97.6 F 98 F Pulse Rate 71 72 74 Respiratory Rate 24 18 18 Blood Pressure 148/96 H 138/74 157/88 H Pulse Oximetry 97 93 L 97 12/30/17 02:44 12/30/17 04:00 12/30/17 07:33 Temperature 97.7 F Pulse Rate 80 67 80 Respiratory Rate 20 18 Blood Pressure 168/88 H Pulse Oximetry 95 12/30/17 07:40 12/30/17 08:00 12/30/17 11:29 Temperature 97.7 F Pulse Rate 81 100 H 78 Respiratory Rate 16 18 Blood Pressure 154/78 H Pulse Oximetry 95 95 12/30/17 11:59 12/30/17 12:00 Temperature 97.9 F Pulse Rate 64 70 Respiratory Rate 16 16 Blood Pressure 158/81 H Pulse Oximetry 98 Intake & Output 12/29/17 12/30/17 12/30/17 18:59 06:59 18:59 Intake Total 1200 / 1200 2185 / 2185 200 / 200 Output Total 750 / 750 Balance 1200 / 1200 1435 / 1435 200 / 200 Weight 57.6 kg Intake: IV 1200 / 1200 2125 / 2125 200 / 200 NS Inj 1,000 ML @ 100 mls/hr IV 1000 / 1000 2024 / 202 .CONT .Q10H JONAS Rx#:[id number] Maxipime Inj 2,000 MG In NS Inj 200 / 200 100 / 100 200 / 200 100 ML @ 200 mls/hr IV.SIG Q8H JONAS Rx#:[id number] Oral 60 / 60 Output: Urine 750 / 750 Other: Date of Last Bowel Movement 12/29/17 # Bowel Movements 0 Narrative: GENERAL: Well-nourished, well-developed patient. SKIN: Warm and dry. +facial malar rash HEAD: Normocephalic. Alopecia present EYES: No scleral icterus. No injection or drainage. NECK: Supple, trachea midline. No JVD or lymphadenopathy. CARDIOVASCULAR: Regular rate and rhythm without murmurs, gallops, or rubs. RESPIRATORY: Breath sounds equal bilaterally. No accessory muscle use. GASTROINTESTINAL: Abdomen soft, non-tender, nondistended. EXTREMITIES: Pupils + edema in upper extremity NEUROLOGICAL: Awake, alert, slightly confused. Assessment and Plan - Assessment (1) Hyponatremia Code(s): E87.1 - Hypo-osmolality and hyponatremia Status: Chronic (2) Diarrhea Code(s): R19.7 - Diarrhea, unspecified Status: Acute (3) Proteinuria Code(s): R80.9 - Proteinuria, unspecified Status: Acute (4) Pancytopenia Code(s): D61.818 - Other pancytopenia Status: Acute - Plan Patient has significant protein loss 2.7 g Patient has volume overload CT scan showed pleural effusions I will give Lasix 20 mg Replace potassium Check magnesium Patient is on steroids and CellCept was started Her hyponatremia is due to multifactorial reasons liver dysfunction, nephrotic syndrome, SLE all contributing We will monitor along with you thank you
[2017-12-30 16:30] LABS: ABG Base Excess -7.1 mmol/L (-2-2); ABG PCO2 26 mmHg (38-42); ABG PO2 93 mmHg (61-120)
[2017-12-30 17:37] LABS: Albumin 2.2 g/dL (3.4-5.0)
[2017-12-30 17:38] LABS: Total Protein 6.1 g/dL (6.4-8.2)
[2017-12-30] MEDS: Potassium Chloride 8 MEQ ER Capsule PO SCH (21:52)
[2017-12-30] MEDS: Enoxaparin Inj 40 MG/0.4 ML Syringe SQ SCH (21:52)
[2017-12-30 23:08] LABS: Hepatitis A IgM Antibody Nonreactive (Nonreactive); Hepatitits B Surface Antigen Nonreactive (Nonreactive)
[2017-12-31] MEDS: Acetaminophen 325 MG Tablet PO PRN (04:21)
[2017-12-31] MEDS: metroNIDAZOLE 500 MG Tablet PO SCH ×3 (05:35→21:23)
[2017-12-31 07:26] LABS: Alanine Aminotransferase 106 U/L (10-53); Albumin 2.2 g/dL (3.4-5.0); Alkaline Phosphatase 50 U/L (45-117); Anion Gap 9 meq/L (5-15); Aspartate Aminotransferase 86 U/L (15-37); Blood Urea Nitrogen 16 mg/dL (7-18); Carbon Dioxide 18.6 meq/L (21.0-32.0); Chloride 96 meq/L (98-107); Glomerular Filtration Rate Greater Than 89 mL/min (>89); Glucose,Random 151 mg/dL (74-106); Magnesium 1.8 mg/dL (1.5-2.5); Potassium 3.4 meq/L (3.5-5.1); Total Protein 5.8 g/dL (6.4-8.2)
[2017-12-31 07:38] LABS: Sodium 124 meq/L (136-145)
[2017-12-31] MEDS: MethylPREDNISolone Sod Succinate Inj 125 MG/2 ML Vial IV.PUSH SCH ×3 (08:36→23:33)
[2017-12-31] MEDS: Furosemide 20 MG Tablet PO SCH (08:36)
[2017-12-31] MEDS: amLODIPine 5 MG Tablet PO SCH (08:36)
[2017-12-31] MEDS: Sucralfate Liq 1 GM/10 ML UDC PO SCH ×2 (08:36→13:12)
[2017-12-31] MEDS: Potassium Chloride 8 MEQ ER Capsule PO SCH ×2 (08:43→21:19)
[2017-12-31] MEDS ORDERED: Sincalide Inj 5 MCG Vial ONE (10:32)
--- NOTE | 2017-12-31 11:36 | NM ---
EXAM DATE: 12/31/2017 11:32 AM EST AGE/SEX: 67 years / Female INDICATIONS: Abdominal pain for one week. CLINICAL DATA: This is the patient's initial encounter. Patient reports that signs and symptoms have been present for 1 day and indicates a pain score of 5/10. MEDICAL/SURGICAL HISTORY: Lupus. None. COMPARISON: C, CTA ABDOMEN & PELVIS W CONTRAST W 3D, 12/30/2017. . No external comparison. DOSE: 4.3 mCi Tc-99m mebrofenin i.v. Medication: 1.2 mcg Cholecystokinin IV No symptomatic response Cholecystokinin was administered by slow infusion over 8 minutes beginning at 60 minutes. TECHNIQUE: Following the intravenous administration of radiotracer, dynamic sequential images were pe rformed with continuous acquisition. Time-activity curves were generated. FINDINGS: Hepatic Kinetics: There is prompt uptake of radiotracer in the liver. No focal defects are seen. Ther e is normal rate of washout from the hepatic parenchyma. Biliary Clearance: Activity is first seen in the extrahepatic biliary system at 5 minutes. There is normal excretion into the small bowel. Gallbladder: Activity is first seen in the gallbladder at 25 minutes. Post-CCK: After CCK administration, there is emptying of the gallbladder with a 50% ejection fraction . Common bile duct kinetics are normal and there is no evidence of biliary obstruction. No symptomat ic response after cholecystokinin infusion. Biliary-Enteric Reflux: None observed. CONCLUSION: 1. Negative examination. Electronically signed by: Patrick Antony MD 12/31/2017 11:35 AM EST
--- NOTE | 2017-12-31 12:29 | P.PN ---
Subjective Interval history: Follow-up abdominal pain with watery diarrhea rule out chronic ischemic bowel/ elevated troponin I/SLE/hyponatremia December 29, 2017-patient seen and examined, reports some improvement of diarrhea. No chest pain or shortness of breath. December 30, 2017-patient seen and examined, still complained of abdominal pain along with watery diarrhea. Patient is now willing for CTA abdomen/pelvics December 31, 2017-patient seen and examined, alert and oriented X3; +SOB/CP Physical Exam Vital signs: Vital Signs 12/30/17 16:00 12/30/17 16:08 12/30/17 20:00 Temperature 97.3 F L 97.6 F Pulse Rate 88 88 77 Respiratory Rate 16 16 18 Blood Pressure 147/93 H 159/80 H Pulse Oximetry 98 98 12/30/17 23:11 12/31/17 00:00 12/31/17 04:00 Temperature 97.6 F 97.4 F L Pulse Rate 88 93 H 97 H Respiratory Rate 20 20 20 Blood Pressure 163/91 H 155/82 H Pulse Oximetry 97 12/31/17 08:00 Temperature 97.9 F Pulse Rate 97 H Respiratory Rate 18 Blood Pressure 173/93 H Pulse Oximetry 95 Intake & Output 12/30/17 12/31/17 12/31/17 18:59 06:59 18:59 Intake Total 1280 / 1280 340 / 340 Output Total 650 / 650 Balance 630 / 630 340 / 340 Weight 60 kg Intake: IV 800 / 800 100 / 100 NS Inj 1,000 ML @ 100 mls/hr IV 600 / 600 .CONT .Q10H JONAS Rx#:[id number] Maxipime Inj 2,000 MG In NS Inj 200 / 200 100 / 100 100 ML @ 200 mls/hr IV.SIG Q8H JONAS Rx#:[id number] Oral 480 / 480 240 / 240 Output: Urine 650 / 650 Other: # Voids 5 # Bowel Movements 3 5 Narrative: GENERAL: Well-nourished, well-developed patient. SKIN: Warm and dry. +facial malar rash HEAD: Normocephalic. Alopecia present EYES: No scleral icterus. No injection or drainage. NECK: Supple, trachea midline. No JVD or lymphadenopathy. CARDIOVASCULAR: Regular rate and rhythm without murmurs, gallops, or rubs. RESPIRATORY: Breath sounds equal bilaterally. No accessory muscle use. GASTROINTESTINAL: Abdomen soft, non-tender, nondistended. EXTREMITIES: Pupils + edema in upper extremity NEUROLOGICAL: Awake, alert, slightly confused. Results - Labs CBC & Chem 7: 12/29/17 06:00 12/31/17 06:41 Laboratory Results - last 24 hr 12/27/17 12/30/17 12/30/17 10:23 15:47 16:25 Puncture Site Right radial Patient Temperature 98.6 O2 Saturation 95 ABG pH 7.42 ABG pCO2 26 L ABG pO2 93 ABG HCO3 17 L ABG O2 Content 17.0 ABG Base Excess -7.1 L ABG Methemoglobin 1.6 Denny Test Present Hemoglobin 12.7 Carboxyhemoglobin 0.5 O2 Delivery Device Nasal cannula Liter Flow 3.00 Critical Value No Sodium Potassium Chloride Carbon Dioxide Anion Gap BUN Creatinine Estimated GFR Random Glucose Lactic Acid 1.1 Calcium Prot Corrected Calcium Magnesium Total Bilirubin Direct Bilirubin Indirect Bilirubin AST ALT Alkaline Phosphatase Ammonia Total Creatine Kinase Total Protein Albumin Ur Random Sodium BETZY Titer 1:160 H BETZY Pattern Diffuse H BETZY Interpretation Hepatitis A IgM Ab Hep Bs Antigen Hep B Core IgM Ab Hep C IgG Ab 12/30/17 12/30/17 12/30/17 17:01 17:01 21:42 Puncture Site Patient Temperature O2 Saturation ABG pH ABG pCO2 ABG pO2 ABG HCO3 ABG O2 Content ABG Base Excess ABG Methemoglobin Denny Test Hemoglobin Carboxyhemoglobin O2 Delivery Device Liter Flow Critical Value Sodium Potassium Chloride Carbon Dioxide Anion Gap BUN Creatinine Estimated GFR Random Glucose Lactic Acid Calcium Prot Corrected Calcium Magnesium Total Bilirubin 0.3 Direct Bilirubin 0.1 Indirect Bilirubin 0.2 AST 133 H ALT 131 H Alkaline Phosphatase 54 Ammonia Less than 10 L Less than 10 L Total Creatine Kinase Total Protein 6.1 L Albumin 2.2 L Ur Random Sodium BETZY Titer BETZY Pattern BETZY Interpretation Hepatitis A IgM Ab Hep Bs Antigen Hep B Core IgM Ab Hep C IgG Ab 12/30/17 12/30/17 12/30/17 21:42 21:42 23:05 Puncture Site Patient Temperature O2 Saturation ABG pH ABG pCO2 ABG pO2 ABG HCO3 ABG O2 Content ABG Base Excess ABG Methemoglobin Denny Test Hemoglobin Carboxyhemoglobin O2 Delivery Device Liter Flow Critical Value Sodium Potassium Chloride Carbon Dioxide Anion Gap BUN Creatinine Estimated GFR Random Glucose Lactic Acid Calcium Prot Corrected Calcium Magnesium Total Bilirubin Direct Bilirubin Indirect Bilirubin AST ALT Alkaline Phosphatase Ammonia Total Creatine Kinase 144 Total Protein Albumin Ur Random Sodium 56 BETZY Titer BETZY Pattern BETZY Interpretation Hepatitis A IgM Ab Nonreactive Hep Bs Antigen Nonreactive Hep B Core IgM Ab Nonreactive Hep C IgG Ab Nonreactive 12/31/17 06:41 Puncture Site Patient Temperature O2 Saturation ABG pH ABG pCO2 ABG pO2 ABG HCO3 ABG O2 Content ABG Base Excess ABG Methemoglobin Denny Test Hemoglobin Carboxyhemoglobin O2 Delivery Device Liter Flow Critical Value Sodium 124 L* Potassium 3.4 L Chloride 96 L Carbon Dioxide 18.6 L Anion Gap 9 BUN 16 Creatinine 0.61 Estimated GFR Greater than 89 Random Glucose 151 H Lactic Acid Calcium 7.0 L* Prot Corrected Calcium 7.7 L Magnesium 1.8 Total Bilirubin 0.3 Direct Bilirubin Indirect Bilirubin AST 86 H ALT 106 H Alkaline Phosphatase 50 Ammonia Total Creatine Kinase Total Protein 5.8 L Albumin 2.2 L Ur Random Sodium BETZY Titer BETZY Pattern BETZY Interpretation Hepatitis A IgM Ab Hep Bs Antigen Hep B Core IgM Ab Hep C IgG Ab - Imaging Impressions Abdomen/Pelvis CTA 12/30/17 00:00 CONCLUSION: 1. No aortic aneurysm or hemodynamically significant stenosis with patent iliac arteries bilaterally. 2. The visceral arteries appear patent without significant flow-limiting stenosis. 3. Portal vein and very central mesenteric veins are patent. 4. Moderate bilateral pleural effusions with associated likely compressive atelectasis in the lower lobes. 5. Diffuse anasarca and small amount of ascites with fluid primarily along the margins of the liver. 6. Nonspecific circumferential wall thickening involving several loops of small bowel. Although nonspecific this may be related to patient's ascites/ hypoalbuminemia. Bile Acid Absorption NM 12/31/17 00:00 CONCLUSION: 1. Negative examination. Assessment and Plan - Plan 67-year-old female with Elevated troponin 2 D Echo with EF60-65%. Coronary CTA 12/28/17 with trace pericardial effusion otherwise unremarkable Aspirin 325 mg now on 81 mg p.o. daily. Does not have ACS symptoms Appreciate input from cardiology Diarrhea Pt reports [address] abd/pelvis - nonspecific edema and small ascites, seen previously. Patient has refused colonoscopy/EGD per GI stool C diff, Stool O and P, stool enteric pathogen ,Cryptosporidium Giardia and C. difficile all negative Patient has declined CTA abdomen Currently on empiric coverage with IV antibiotics including Flagyl 500 mg p.o. daily 8-hour and cefepime per GI Vascular surgery consulted. Need to rule out Chronic mesenteric ischemia versus vasculitis CTA abdomen/pelvis negative NM Hepatobiliary /HIDA scan negative Hyponatremia, chronic (>48 hours in onset) Proteinuria - on dipstick SLE nephritis? Urines osm/serum uric and urine sodium could be consistent with SIADH. Sodium appears to be correcting on a slow trend, would want to avoid correction >8 MEQ/ 24 hours. Monitor sodium q6 hours. Appreciate input from nephrology pending 24-hour urine protein collection Consider renal biopsy Hypokalemia Give potassium 60 mEq x1 now SLE - pancytopenia, proteinuria ?carditis - may be secondary to lupus flare. Check C3, C4, dsDNA Ab titer, ESR/CRP. on empiric steroids IV Solu-Medrol 60 mg every 8 hours, CellCept 500 mg twice daily Normal CRP, mildly elevated ESR Continue with aspirin 81 mg daily Hypertension Currently on Norvasc 5 mg daily Pancytopenia monitor closely. PROPH: SCD for DVT prophylaxis. Lovenox 40 mg subcu daily, monitor and discontinue if platelet count less than 50. Protonix 40 mg p.o. daily
--- NOTE | 2017-12-31 14:54 | P.PNGI ---
Subjective Interval history: Patient sitting on side of the bed appears to be feeling somewhat better notes left and right lower quadrant abdominal pain improved HIDA scan negative. Discussed findings with patient and her son. No nausea no vomiting Loose stools improving non-watery now <Madelyn Townsend - Last Filed: 12/31/17 14:49> Interval history: Seen and examined with [employer] SU[employer]OR, still with diarrhea. Wants to do egd/colonoscopy as outpatient. Gi will sign off. Thank you <Sangeetha Adams - Last Filed: 12/31/17 15:22> Physical Exam Vital signs: Vital Signs 12/30/17 16:00 12/30/17 16:08 12/30/17 20:00 Temperature 97.3 F L 97.6 F Pulse Rate 88 88 77 Respiratory Rate 16 16 18 Blood Pressure 147/93 H 159/80 H Pulse Oximetry 98 98 12/30/17 23:11 12/31/17 00:00 12/31/17 04:00 Temperature 97.6 F 97.4 F L Pulse Rate 88 93 H 97 H Respiratory Rate 20 20 20 Blood Pressure 163/91 H 155/82 H Pulse Oximetry 97 12/31/17 08:00 Temperature 97.9 F Pulse Rate 97 H Respiratory Rate 18 Blood Pressure 173/93 H Pulse Oximetry 95 Intake & Output 12/30/17 12/31/17 12/31/17 18:59 06:59 18:59 Intake Total 1280 / 1280 340 / 340 100 / 100 Output Total 650 / 650 Balance 630 / 630 340 / 340 100 / 100 Weight 60 kg Intake: IV 800 / 800 100 / 100 100 / 100 NS Inj 1,000 ML @ 100 mls/hr IV 600 / 600 .CONT .Q10H JONAS Rx#:[id number] Maxipime Inj 2,000 MG In NS Inj 200 / 200 100 / 100 100 / 100 100 ML @ 200 mls/hr IV.SIG Q8H JONAS Rx#:[id number] Oral 480 / 480 240 / 240 Output: Urine 650 / 650 Other: # Voids 5 Date of Last Bowel Movement 12/30/17 # Bowel Movements 3 5 - Constitutional mild distress (Which may be chronic), chronically ill appearing, disheveled - Routine HEENT Exam ENT: Present: mucous membranes moist - Routine Respiratory Exam Present: accessory muscle use (No obvious shortness of breath wheezing or rhonchi) - Routine Cardiovascular Exam Present: S1, S2 - Routine Abdominal Exam Present: soft, normoactive bowel sounds (Soft bowel sounds no obvious lower abdominal guarding or tenderness, occasional mild discomfort) <Madelyn Townsend - Last Filed: 12/31/17 14:49> Vital signs: Vital Signs 12/30/17 16:00 12/30/17 16:08 12/30/17 20:00 Temperature 97.3 F L 97.6 F Pulse Rate 88 88 77 Respiratory Rate 16 16 18 Blood Pressure 147/93 H 159/80 H Pulse Oximetry 98 98 12/30/17 23:11 12/31/17 00:00 12/31/17 04:00 Temperature 97.6 F 97.4 F L Pulse Rate 88 93 H 97 H Respiratory Rate 20 20 20 Blood Pressure 163/91 H 155/82 H Pulse Oximetry 97 12/31/17 08:00 Temperature 97.9 F Pulse Rate 97 H Respiratory Rate 18 Blood Pressure 173/93 H Pulse Oximetry 95 Intake & Output 12/30/17 12/31/17 12/31/17 18:59 06:59 18:59 Intake Total 1280 / 1280 340 / 340 100 / 100 Output Total 650 / 650 Balance 630 / 630 340 / 340 100 / 100 Weight 60 kg Intake: IV 800 / 800 100 / 100 100 / 100 NS Inj 1,000 ML @ 100 mls/hr IV 600 / 600 .CONT .Q10H JONAS Rx#:[id number] Maxipime Inj 2,000 MG In NS Inj 200 / 200 100 / 100 100 / 100 100 ML @ 200 mls/hr IV.SIG Q8H JONAS Rx#:[id number] Oral 480 / 480 240 / 240 Output: Urine 650 / 650 Other: # Voids 5 Date of Last Bowel Movement 12/30/17 # Bowel Movements 3 5 <Sangeetha Adams - Last Filed: 12/31/17 15:22> Results - Labs CBC & Chem 7: 12/29/17 06:00 12/31/17 06:41 Laboratory Results - last 24 hr 12/27/17 12/30/17 12/30/17 10:23 15:47 16:25 Puncture Site Right radial Patient Temperature 98.6 O2 Saturation 95 ABG pH 7.42 ABG pCO2 26 L ABG pO2 93 ABG HCO3 17 L ABG O2 Content 17.0 ABG Base Excess -7.1 L ABG Methemoglobin 1.6 Denny Test Present Hemoglobin 12.7 Carboxyhemoglobin 0.5 O2 Delivery Device Nasal cannula Liter Flow 3.00 Critical Value No Sodium Potassium Chloride Carbon Dioxide Anion Gap BUN Creatinine Estimated GFR Random Glucose Lactic Acid 1.1 Calcium Prot Corrected Calcium Magnesium Total Bilirubin Direct Bilirubin Indirect Bilirubin AST ALT Alkaline Phosphatase Ammonia Total Creatine Kinase Total Protein Albumin Ur Random Sodium BETZY Titer 1:160 H BETZY Pattern Diffuse H BETZY Interpretation Hepatitis A IgM Ab Hep Bs Antigen Hep B Core IgM Ab Hep C IgG Ab 12/30/17 12/30/17 12/30/17 17:01 17:01 21:42 Puncture Site Patient Temperature O2 Saturation ABG pH ABG pCO2 ABG pO2 ABG HCO3 ABG O2 Content ABG Base Excess ABG Methemoglobin Denny Test Hemoglobin Carboxyhemoglobin O2 Delivery Device Liter Flow Critical Value Sodium Potassium Chloride Carbon Dioxide Anion Gap BUN Creatinine Estimated GFR Random Glucose Lactic Acid Calcium Prot Corrected Calcium Magnesium Total Bilirubin 0.3 Direct Bilirubin 0.1 Indirect Bilirubin 0.2 AST 133 H ALT 131 H Alkaline Phosphatase 54 Ammonia Less than 10 L Less than 10 L Total Creatine Kinase Total Protein 6.1 L Albumin 2.2 L Ur Random Sodium BETZY Titer BETZY Pattern BETZY Interpretation Hepatitis A IgM Ab Hep Bs Antigen Hep B Core IgM Ab Hep C IgG Ab 12/30/17 12/30/17 12/30/17 21:42 21:42 23:05 Puncture Site Patient Temperature O2 Saturation ABG pH ABG pCO2 ABG pO2 ABG HCO3 ABG O2 Content ABG Base Excess ABG Methemoglobin Denny Test Hemoglobin Carboxyhemoglobin O2 Delivery Device Liter Flow Critical Value Sodium Potassium Chloride Carbon Dioxide Anion Gap BUN Creatinine Estimated GFR Random Glucose Lactic Acid Calcium Prot Corrected Calcium Magnesium Total Bilirubin Direct Bilirubin Indirect Bilirubin AST ALT Alkaline Phosphatase Ammonia Total Creatine Kinase 144 Total Protein Albumin Ur Random Sodium 56 BETZY Titer BETZY Pattern BETZY Interpretation Hepatitis A IgM Ab Nonreactive Hep Bs Antigen Nonreactive Hep B Core IgM Ab Nonreactive Hep C IgG Ab Nonreactive 12/31/17 06:41 Puncture Site Patient Temperature O2 Saturation ABG pH ABG pCO2 ABG pO2 ABG HCO3 ABG O2 Content ABG Base Excess ABG Methemoglobin Denny Test Hemoglobin Carboxyhemoglobin O2 Delivery Device Liter Flow Critical Value Sodium 124 L* Potassium 3.4 L Chloride 96 L Carbon Dioxide 18.6 L Anion Gap 9 BUN 16 Creatinine 0.61 Estimated GFR Greater than 89 Random Glucose 151 H Lactic Acid Calcium 7.0 L* Prot Corrected Calcium 7.7 L Magnesium 1.8 Total Bilirubin 0.3 Direct Bilirubin Indirect Bilirubin AST 86 H ALT 106 H Alkaline Phosphatase 50 Ammonia Total Creatine Kinase Total Protein 5.8 L Albumin 2.2 L Ur Random Sodium BETZY Titer BETZY Pattern BETZY Interpretation Hepatitis A IgM Ab Hep Bs Antigen Hep B Core IgM Ab Hep C IgG Ab - Imaging Impressions Bile Acid Absorption NM 12/31/17 00:00 CONCLUSION: 1. Negative examination. <Madelyn Townsend - Last Filed: 12/31/17 14:49> - Labs CBC & Chem 7: 12/29/17 06:00 12/31/17 06:41 Laboratory Results - last 24 hr 12/27/17 12/30/17 12/30/17 10:23 15:47 16:25 Puncture Site Right radial Patient Temperature 98.6 O2 Saturation 95 ABG pH 7.42 ABG pCO2 26 L ABG pO2 93 ABG HCO3 17 L ABG O2 Content 17.0 ABG Base Excess -7.1 L ABG Methemoglobin 1.6 Denny Test Present Hemoglobin 12.7 Carboxyhemoglobin 0.5 O2 Delivery Device Nasal cannula Liter Flow 3.00 Critical Value No Sodium Potassium Chloride Carbon Dioxide Anion Gap BUN Creatinine Estimated GFR Random Glucose Lactic Acid 1.1 Calcium Prot Corrected Calcium Magnesium Total Bilirubin Direct Bilirubin Indirect Bilirubin AST ALT Alkaline Phosphatase Ammonia Total Creatine Kinase Total Protein Albumin Ur Random Sodium BETZY Titer 1:160 H BETZY Pattern Diffuse H BETZY Interpretation Hepatitis A IgM Ab Hep Bs Antigen Hep B Core IgM Ab Hep C IgG Ab 12/30/17 12/30/17 12/30/17 17:01 17:01 21:42 Puncture Site Patient Temperature O2 Saturation ABG pH ABG pCO2 ABG pO2 ABG HCO3 ABG O2 Content ABG Base Excess ABG Methemoglobin Denny Test Hemoglobin Carboxyhemoglobin O2 Delivery Device Liter Flow Critical Value Sodium Potassium Chloride Carbon Dioxide Anion Gap BUN Creatinine Estimated GFR Random Glucose Lactic Acid Calcium Prot Corrected Calcium Magnesium Total Bilirubin 0.3 Direct Bilirubin 0.1 Indirect Bilirubin 0.2 AST 133 H ALT 131 H Alkaline Phosphatase 54 Ammonia Less than 10 L Less than 10 L Total Creatine Kinase Total Protein 6.1 L Albumin 2.2 L Ur Random Sodium BETZY Titer BETZY Pattern BETZY Interpretation Hepatitis A IgM Ab Hep Bs Antigen Hep B Core IgM Ab Hep C IgG Ab 12/30/17 12/30/17 12/30/17 21:42 21:42 23:05 Puncture Site Patient Temperature O2 Saturation ABG pH ABG pCO2 ABG pO2 ABG HCO3 ABG O2 Content ABG Base Excess ABG Methemoglobin Denny Test Hemoglobin Carboxyhemoglobin O2 Delivery Device Liter Flow Critical Value Sodium Potassium Chloride Carbon Dioxide Anion Gap BUN Creatinine Estimated GFR Random Glucose Lactic Acid Calcium Prot Corrected Calcium Magnesium Total Bilirubin Direct Bilirubin Indirect Bilirubin AST ALT Alkaline Phosphatase Ammonia Total Creatine Kinase 144 Total Protein Albumin Ur Random Sodium 56 BETZY Titer BETZY Pattern BETZY Interpretation Hepatitis A IgM Ab Nonreactive Hep Bs Antigen Nonreactive Hep B Core IgM Ab Nonreactive Hep C IgG Ab Nonreactive 12/31/17 06:41 Puncture Site Patient Temperature O2 Saturation ABG pH ABG pCO2 ABG pO2 ABG HCO3 ABG O2 Content ABG Base Excess ABG Methemoglobin Denny Test Hemoglobin Carboxyhemoglobin O2 Delivery Device Liter Flow Critical Value Sodium 124 L* Potassium 3.4 L Chloride 96 L Carbon Dioxide 18.6 L Anion Gap 9 BUN 16 Creatinine 0.61 Estimated GFR Greater than 89 Random Glucose 151 H Lactic Acid Calcium 7.0 L* Prot Corrected Calcium 7.7 L Magnesium 1.8 Total Bilirubin 0.3 Direct Bilirubin Indirect Bilirubin AST 86 H ALT 106 H Alkaline Phosphatase 50 Ammonia Total Creatine Kinase Total Protein 5.8 L Albumin 2.2 L Ur Random Sodium BETZY Titer BETZY Pattern BETZY Interpretation Hepatitis A IgM Ab Hep Bs Antigen Hep B Core IgM Ab Hep C IgG Ab - Imaging Impressions Bile Acid Absorption NM 12/31/17 00:00 CONCLUSION: 1. Negative examination. <Sangeetha Adams - Last Filed: 12/31/17 15:22> Assessment and Plan - Plan Assessment: - Abdominal bloating with diarrhea- reported up to 12 loose stools a day, denies any melena or hematochezia. Denies previous EGD or colonoscopy. Pt has refused EGD and colonoscopy. C. Diff negative. Ova and parasites stool negative. Enteric pathogens stool negative. CT abdomen/pelvis 12/24 --> nonspecific edema and small ascites. Nothing organized or drainable. Similar findings were seen previously. No focal inflammatory changes are demonstrated. No obstruction. Mild thickening of the intralobular septa of both lung bases suggesting mild pulmonary edema. Heart is enlarged. No pleural effusion. Previously seen pericardial effusion is no longer present. 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 Pt has been advised to have CTA abdomen/pelvis but first refused because she did not want to be stuck multiple times for IV access for IV contrast and now states her PCP has advised against the exam because of the effect the IV contrast will have on her kidneys - Systemic lupus erythematous- Was not on treatment at time of admission, was previously on Plaquenil and Prednisone Has been started on IV Solumedrol - Proteinuria ? lupus nephritis- nephrology has been consulted - Elevated troponin- Echo- normal LVEF, pt declined further cardiac testing, later agreed to CTA chest - Hyponatremia - nephrology consulted - Pancytopenia- possibly secondary to lupus flare (12/29) Appreciate vascular surgery input, pt still refusing CTA abd/pelvis. Questionable vasculitis vs chronic mesenteric ischemia. Nephrology now following, additional labs and 24 hour urine ordered , possible kidney biopsy. Started on Cell Cept today. Pt does reports some mild abdominal pain, some relief with Tylenol but pain is still present. Denies nausea and vomiting. States very poor appetite. Will not eat hospital food because it contains dairy, her family has been bringing some food from home. Also reports abdominal bloating, abdomen does appear mildly distended but soft and bowel sounds are active. Pt is complaining of some new swelling to her knees. 12/30/2017 Patient agrees to have CTA abdomen and pelvis done today. Discussed need to evaluate for possible mesenteric ischemia. Patient continues to have mild lower abdominal pain despite administration of Tylenol. Denies nausea vomiting. 12/29/2017 hemoglobin 11.4 hematocrit 32.3 12/31/2017 HIDA scan negative, discussed with patient and son again EGD and colonoscopy to further evaluate abdominal pain and diarrhea. Although diarrhea and abdominal pain are improving, some of her symptoms may be related to her lupus and noncompliance with her medications. Patient states that she will consider EGD and colonoscopy and come to the GI office for further evaluation if abdominal pain continues. As long as patient is stable this could be done on an outpatient basis or at [facility] dependent on her stability. Continue PPI for now, probiotics. No further inpatient needs per GI for now. GI will sign off , discussed with nurse and hospitalist Plan -Diet as tolerated, reflux precautions discussed with patient PPI, add probiotics Monitor abdominal pain location and any loose diarrhea symptoms, if patient decides follow-up in the office for EGD colonoscopy outpatient Supportive care Patient was seen per myself and Dr. Adams, note was written on her behalf <Madelyn Townsend - Last Filed: 12/31/17 14:49>
--- NOTE | 2017-12-31 18:11 | P.PNNP ---
Subjective Interval history: no acute complaints Physical Exam Vital signs: Vital Signs 12/30/17 20:00 12/30/17 23:11 12/31/17 00:00 Temperature 97.6 F 97.6 F Pulse Rate 77 88 93 H Respiratory Rate 18 20 20 Blood Pressure 159/80 H 163/91 H Pulse Oximetry 98 97 12/31/17 04:00 12/31/17 08:00 12/31/17 16:00 Temperature 97.4 F L 97.9 F 97.4 F L Pulse Rate 97 H 104 H 101 H Respiratory Rate 20 18 17 Blood Pressure 155/82 H 173/93 H 97/56 L Pulse Oximetry 95 98 12/31/17 17:31 Temperature Pulse Rate Respiratory Rate Blood Pressure Pulse Oximetry 98 Intake & Output 12/30/17 12/31/17 12/31/17 18:59 06:59 18:59 Intake Total 1280 / 1280 340 / 340 200 / 200 Output Total 650 / 650 Balance 630 / 630 340 / 340 200 / 200 Weight 60 kg Intake: IV 800 / 800 100 / 100 200 / 200 NS Inj 1,000 ML @ 100 mls/hr IV 600 / 600 .CONT .Q10H JONAS Rx#:[id number] Maxipime Inj 2,000 MG In NS Inj 200 / 200 100 / 100 200 / 200 100 ML @ 200 mls/hr IV.SIG Q8H JONAS Rx#:[id number] Oral 480 / 480 240 / 240 Output: Urine 650 / 650 Other: # Voids 5 Date of Last Bowel Movement 12/30/17 # Bowel Movements 3 5 - Constitutional no acute distress - Routine HEENT Exam Head: Present: normocephalic Eye: Present: EOMI ENT: Present: mucous membranes moist - Routine Neck Exam Present: supple - Routine Respiratory Exam Present: decreased breath sounds - Routine Cardiovascular Exam Present: RRR - Routine Abdominal Exam Present: soft - Routine Skin Exam Present: intact - Routine Neurological Exam Present: alert, oriented X3 - Detailed Neurological Exam: Coma Scale Eye Opening: Spontaneous - Routine Psychiatric Exam Present: normal affect Assessment and Plan - Assessment (1) Hyponatremia Code(s): E87.1 - Hypo-osmolality and hyponatremia Status: Chronic (2) Diarrhea Code(s): R19.7 - Diarrhea, unspecified Status: Acute (3) Proteinuria Code(s): R80.9 - Proteinuria, unspecified Status: Acute (4) Pancytopenia Code(s): D61.818 - Other pancytopenia Status: Acute - Plan Patient has significant protein loss 2.7 g/day Patient has volume overload CT scan showed pleural effusions Possible lupus nephritis - patient is on steroids and CellCept was started Renal biopsy may be a consideration Will replace potassium, follow magnesium Her hyponatremia is due to multifactorial reasons: liver dysfunction, nephrotic syndrome, SLE all contributing Na 113 at time of admission Na 124 now- started PO lasix 20mg daily yesterday. Will give 1mg bumex x1 and albumin infusion today for further diuresis to help hypervolemic hyponatremia. Tolvaptan would be ideal - however, will hold given elevated LFTs and apparent liver dysfunction. Patient reports she would like to be discharged soon - follow goals of care with primary team. Ideally kidney biopsy could be performed to evaluate extent and class of lupus nephritis - however could consider as outpatient if discharged soon. Dr. Metcalf to return on Tuesday
[2017-12-31] MEDS: Albumin Human 25% Inj 100 ML IV.SIG SCH (18:48)
[2017-12-31] MEDS: Enoxaparin Inj 40 MG/0.4 ML Syringe SQ SCH (21:17)
[2017-12-31] MEDS: Zolpidem Tartrate 5 MG Tablet PO PRN (23:38)
[2018-01-01 05:07] LABS: Baso % (Auto) 0.2 % (0.0-2.0); Hematocrit 32.2 % (35.0-46.0); Hemoglobin 11.3 gm/dL (11.6-15.3); Lymph # (Auto) 0.3 th/mm3 (1.0-4.8); Lymph % (Auto) 4.5 % (9.0-44.0); Mean Corpuscular HGB Conc 35.3 % (32.0-36.0); Mean Corpuscular Hemoglobin 31.9 pg (27.0-34.0); Mean Corpuscular Volume 90.6 fL (80.0-100.0); Mean Platelet Volume 9.1 fL (7.0-11.0); Mono # (Auto) 0.7 th/mm3 (0.0-0.9); Mono % (Auto) 10.7 % (0.0-8.0); Neut # (Auto) 5.4 th/mm3 (1.8-7.7); Neut % (Auto) 84.6 % (16.0-70.0); Platelet Count 203 th/mm3 (150-450); Red Blood Count 3.55 mil/mm3 (4.00-5.30); Red Cell Distribution Width 12.3 % (11.6-17.2); White Blood Count 6.4 th/mm3 (4.0-11.0)
[2018-01-01] MEDS: metroNIDAZOLE 500 MG Tablet PO SCH ×3 (05:09→22:06)
[2018-01-01 05:52] LABS: Calcium 7.2 mg/dL (8.5-10.1); Carbon Dioxide 19.4 meq/L (21.0-32.0); Potassium 3.3 meq/L (3.5-5.1); Total Protein 6.4 g/dL (6.4-8.2)
[2018-01-01 05:59] LABS: Platelet Estimate Normal (Normal); Platelet Morphology Normal (Normal); RBC Morphology Normal (Normal)
[2018-01-01] MEDS: Albumin Human 25% Inj 100 ML IV.SIG SCH ×2 (06:14→18:13)
[2018-01-01] MEDS: amLODIPine 5 MG Tablet PO SCH (08:06)
[2018-01-01] MEDS: Furosemide 20 MG Tablet PO SCH (08:07)
[2018-01-01] MEDS: MethylPREDNISolone Sod Succinate Inj 125 MG/2 ML Vial IV.PUSH SCH ×3 (08:07→22:59)
--- NOTE | 2018-01-01 10:35 | P.PN ---
Subjective Interval history: Follow-up abdominal pain with watery diarrhea rule out chronic ischemic bowel/ elevated troponin I/SLE/hyponatremia Follow-up January 01, 2018-patient seen and examined, states she is feeling much better and looks much better. Patient wants out of here. Sodium up to 127. Diarrheal episode improving. Physical Exam Vital signs: Vital Signs 12/31/17 16:00 12/31/17 17:31 12/31/17 20:00 Temperature 97.4 F L 97.2 F L Pulse Rate 101 H 87 Respiratory Rate 17 20 Blood Pressure 97/56 L 153/79 H Pulse Oximetry 98 98 97 01/01/18 00:00 01/01/18 00:21 01/01/18 04:00 Temperature 97.5 F L 98.2 F Pulse Rate 96 H 85 106 H Respiratory Rate 20 16 20 Blood Pressure 149/82 H 143/59 H Pulse Oximetry 97 97 99 01/01/18 08:00 Temperature 98.1 F Pulse Rate 98 H Respiratory Rate 17 Blood Pressure 158/83 H Pulse Oximetry 97 Intake & Output 12/31/17 01/01/18 01/01/18 18:59 06:59 18:59 Intake Total 1640 / 1640 630 / 630 100 / 100 Output Total 1250 / 1250 2750 / 2750 Balance 390 / 390 -2120 / -2120 100 / 100 Intake: IV 200 / 200 210 / 210 100 / 100 Flexbumin 25% Inj 100 ML @ 60 100 / 100 100 / 100 mls/hr IV.SIG Q12H JONAS Rx#: [id number] Maxipime Inj 2,000 MG In NS Inj 200 / 200 110 / 110 100 ML @ 200 mls/hr IV.SIG Q8H JONAS Rx#:[id number] Oral 1440 / 1440 420 / 420 Output: Urine 1250 / 1250 2750 / 2750 Other: Date of Last Bowel Movement 12/30/17 12/31/17 Narrative: GENERAL: Well-nourished, well-developed patient. SKIN: Warm and dry. +facial malar rash HEAD: Normocephalic. Alopecia present EYES: No scleral icterus. No injection or drainage. NECK: Supple, trachea midline. No JVD or lymphadenopathy. CARDIOVASCULAR: Regular rate and rhythm without murmurs, gallops, or rubs. RESPIRATORY: Breath sounds equal bilaterally. No accessory muscle use. GASTROINTESTINAL: Abdomen soft, non-tender, nondistended. EXTREMITIES: Pupils + edema in upper extremity NEUROLOGICAL: Awake, alert. Results - Labs CBC & Chem 7: 01/01/18 04:43 01/01/18 04:43 Laboratory Results - last 24 hr 12/28/17 01/01/18 01/01/18 20:00 04:43 04:43 WBC 6.4 RBC 3.55 L Hgb 11.3 L Hct 32.2 L MCV 90.6 MCH 31.9 MCHC 35.3 RDW 12.3 Plt Count 203 D MPV 9.1 Prelim Diff (Auto) Slide review pending Neut % (Auto) 84.6 H Lymph % (Auto) 4.5 L Nolan % (Auto) 10.7 H Eos % (Auto) 0.0 Baso % (Auto) 0.2 Neut # (Auto) 5.4 Lymph # (Auto) 0.3 L Nolan # (Auto) 0.7 Eos # (Auto) 0.0 Baso # (Auto) 0.0 WBC Differential . Diff Scan Auto diff confirmed Differential Comment . Platelet Estimate Normal Platelet Morphology Normal RBC Morphology Normal Sodium 127 L Potassium 3.3 L Chloride 97 L Carbon Dioxide 19.4 L Anion Gap 11 BUN 14 Creatinine 0.78 Estimated GFR 74 L Random Glucose 149 H Calcium 7.2 L* Prot Corrected Calcium 7.6 L Total Bilirubin 0.4 AST 60 H ALT 84 H Alkaline Phosphatase 48 C-React Prot High Sens Less than 0.2 Total Protein 6.4 D Albumin 3.0 L D - Imaging Impressions Bile Acid Absorption NM 12/31/17 00:00 CONCLUSION: 1. Negative examination. Assessment and Plan - Plan 67-year-old female with Diarrhea-improving Pt reports 2 weeks of diarrhea prior to admission. CT abd/pelvis - nonspecific edema and small ascites, seen previously. Patient has refused colonoscopy/EGD stool C diff, Stool O and P, stool enteric pathogen ,Cryptosporidium Giardia and C. difficile all negative Currently on empiric coverage with Flagyl 500 mg p.o. daily 8-hour and s/p cefepime. Continue with Flagyl times 10-14 days total Vascular surgery was consulted and case was discussed with Dr. Verde CTA abdomen/pelvis negative; unlikely chronic mesenteric ischemia NM Hepatobiliary /HIDA scan negative Patient to follow outpatient with GI for panendoscopy Hyponatremia of hypervolemia Multifactorial, liver dysfunction, nephrotic syndrome, SLE Status post IV Bumex x1 (12/31) currently on IV albumin (12/31) every 12 hours per nephrology Sam[place]a contraindicated secondary to liver dysfunction Sodium trending up, continue to monitor BMP SLE nephritis? On empiric steroids IV Solu-Medrol 60 mg every 8 hours, CellCept 500 mg twice daily Patient is declining renal biopsy Appreciate input from nephrology Elevated troponin 2 D Echo with EF60-65%. Coronary CTA 12/28/17 with trace pericardial effusion otherwise unremarkable Now on 81 mg p.o. daily. Does not have ACS symptoms Appreciate input from cardiology; signed off Hypokalemia Give potassium 60 mEq x1 now and monitor electrodes SLE - pancytopenia, proteinuria ?carditis - may be secondary to lupus flare. on empiric steroids IV Solu-Medrol 60 mg every 8 hours, CellCept 500 mg twice daily Normal CRP, mildly elevated ESR Continue with aspirin 81 mg daily 24-hour urine collection report noted Hypertension Currently on Norvasc 5 mg daily PT to treat and eval PROPH: SCD for DVT prophylaxis. Lovenox 40 mg subcu daily, monitor and discontinue if platelet count less than 50. Protonix 40 mg p.o. daily
--- NOTE | 2018-01-01 15:48 | P.PNNP ---
Subjective Interval history: feels well, would like to go home soon Physical Exam Vital signs: Vital Signs 12/31/17 16:00 12/31/17 17:31 12/31/17 20:00 Temperature 97.4 F L 97.2 F L Pulse Rate 101 H 87 Respiratory Rate 17 20 Blood Pressure 97/56 L 153/79 H Pulse Oximetry 98 98 97 01/01/18 00:00 01/01/18 00:21 01/01/18 04:00 Temperature 97.5 F L 98.2 F Pulse Rate 96 H 85 106 H Respiratory Rate 20 16 20 Blood Pressure 149/82 H 143/59 H Pulse Oximetry 97 97 99 01/01/18 08:00 01/01/18 12:00 Temperature 98.1 F 98.4 F Pulse Rate 103 H 101 H Respiratory Rate 17 18 Blood Pressure 158/83 H 168/78 H Pulse Oximetry 97 100 Intake & Output 12/31/17 01/01/18 01/01/18 18:59 06:59 18:59 Intake Total 1640 / 1640 630 / 630 200 / 200 Output Total 1250 / 1250 2750 / 2750 Balance 390 / 390 -2120 / -2120 200 / 200 Intake: IV 200 / 200 210 / 210 200 / 200 Flexbumin 25% Inj 100 ML @ 60 100 / 100 100 / 100 mls/hr IV.SIG Q12H JONAS Rx#: [id number] Maxipime Inj 2,000 MG In NS Inj 200 / 200 110 / 110 100 / 100 100 ML @ 200 mls/hr IV.SIG Q12H JONAS Rx#:[id number] Oral 1440 / 1440 420 / 420 Output: Urine 1250 / 1250 2750 / 2750 Other: Date of Last Bowel Movement 12/30/17 12/31/17 12/31/17 - Constitutional no acute distress - Routine HEENT Exam Head: Present: normocephalic Eye: Present: EOMI ENT: Present: mucous membranes moist - Routine Neck Exam Present: supple - Routine Respiratory Exam Present: decreased breath sounds - Routine Cardiovascular Exam Present: RRR - Routine Abdominal Exam Present: soft - Routine Extremities Exam Present: edema - Routine Skin Exam Present: intact - Routine Neurological Exam Present: alert, oriented X3 - Detailed Neurological Exam: Coma Scale Eye Opening: Spontaneous - Routine Psychiatric Exam Present: normal affect Assessment and Plan - Assessment (1) Hyponatremia Code(s): E87.1 - Hypo-osmolality and hyponatremia Status: Chronic (2) Diarrhea Code(s): R19.7 - Diarrhea, unspecified Status: Acute (3) Proteinuria Code(s): R80.9 - Proteinuria, unspecified Status: Acute (4) Pancytopenia Code(s): D61.818 - Other pancytopenia Status: Acute - Plan Patient has significant protein loss 2.7 g/day Patient has volume overload CT scan showed pleural effusions Possible lupus nephritis - patient is on steroids and CellCept was started empirically Renal biopsy may be a consideration Her hyponatremia is due to multifactorial reasons: liver dysfunction, nephrotic syndrome, SLE all contributing Na 113 at time of admission Na 124 - > 127 now- started PO lasix 20mg daily Tuesday. Given bumex 1mg x1 given with albumin infusion yesterday for further diuresis to help hypervolemic hyponatremia. Good response with 1.8 L UOP. Will repeat bumex 1mg IV x 1 today. Tolvaptan would be ideal - however, will hold given elevated LFTs and apparent liver dysfunction. Kidney biopsy could be considered to evaluate extent and class of lupus nephritis - however could consider as outpatient if discharged soon and patient remains clinically stable. Dr. Metcalf to return on Tuesday Follow electrolytes - potassium given today Patient reports she would like to be discharged soon, continue to monitor for now
[2018-01-01] MEDS: Enoxaparin Inj 40 MG/0.4 ML Syringe SQ SCH (20:31)
[2018-01-01] MEDS: Zolpidem Tartrate 5 MG Tablet PO PRN (22:06)
[2018-01-02] MEDS: metroNIDAZOLE 500 MG Tablet PO SCH ×3 (06:02→22:20)
[2018-01-02] MEDS: Albumin Human 25% Inj 100 ML IV.SIG SCH (06:03)
--- NOTE | 2018-01-02 08:55 | P.PNIM ---
Subjective Interval history: Patient says she is feeling better overall. Reports diarrhea has resolved. Denies any chest pain or shortness of breath. Says she feels like going home. Appears to be possibly minimizing Physical Exam Vital signs: Vital Signs 01/01/18 12:00 01/01/18 16:00 01/01/18 19:45 Temperature 98.4 F 98.0 F Pulse Rate 101 H 90 102 H Respiratory Rate 18 17 Blood Pressure 168/78 H 171/86 H Pulse Oximetry 100 98 01/01/18 20:00 01/01/18 22:51 01/02/18 00:00 Temperature 97.9 F 97.8 F Pulse Rate 90 105 H 69 Respiratory Rate 20 16 Blood Pressure 143/82 H 158/81 H Pulse Oximetry 92 L 92 L 01/02/18 01:05 01/02/18 04:00 Temperature 98.2 F Pulse Rate 118 H 122 H Respiratory Rate 18 18 Blood Pressure 166/96 H Pulse Oximetry 92 L Intake & Output 01/01/18 01/02/18 01/02/18 18:59 06:59 18:59 Intake Total 680 / 680 210 / 210 100 / 100 Output Total 600 / 600 2475 / 2475 Balance 80 / 80 -2265 / -2265 100 / 100 Intake: IV 200 / 200 210 / 210 100 / 100 Flexbumin 25% Inj 100 ML @ 60 100 / 100 100 / 100 100 / 100 mls/hr IV.SIG Q12H JONAS Rx#: [id number] Maxipime Inj 2,000 MG In NS Inj 100 / 100 110 / 110 100 ML @ 200 mls/hr IV.SIG Q12H JONAS Rx#:[id number] Oral 480 / 480 Output: Urine 600 / 600 2475 / 2475 Other: Date of Last Bowel Movement 12/31/17 01/01/18 Narrative: GENERAL: Patient sitting up in bed. Appears comfortable. SKIN: Warm and dry. HEAD: Normocephalic. EYES: No scleral icterus. No injection or drainage. NECK: Supple, trachea midline. No JVD. CARDIOVASCULAR: Regular rate and rhythm without murmurs, gallops, or rubs. RESPIRATORY: Breath sounds equal bilaterally. Crackles bilateral bases. No accessory muscle use. GASTROINTESTINAL: Abdomen soft, non-tender, nondistended. MUSCULOSKELETAL: No cyanosis,. +1 bilateral lower extremity edema BACK: Nontender without obvious deformity. No CVA tenderness. Results - Labs CBC & Chem 7: 01/01/18 04:43 01/01/18 04:43 Assessment and Plan - Plan 67-year-old female with //Diarrhea-improving Pt reports 2 weeks of diarrhea prior to admission. CT abd/pelvis - nonspecific edema and small ascites, seen previously. Patient has refused colonoscopy/EGD stool C diff, Stool O and P, stool enteric pathogen ,Cryptosporidium Giardia and C. difficile all negative Currently on empiric coverage with Flagyl 500 mg p.o. daily 8-hour and s/p cefepime. Continue with Flagyl times 10-14 days total Vascular surgery was consulted and case was discussed with Dr. Verde CTA abdomen/pelvis negative; unlikely chronic mesenteric ischemia NM Hepatobiliary /HIDA scan negative Patient to follow outpatient with GI for panendoscopy = 01/02. Patient reports diarrhea appears to have resolved. //Hyponatremia of hypervolemia Multifactorial, liver dysfunction, nephrotic syndrome, SLE Status post IV Bumex x1 (12/31) currently on IV albumin (12/31) every 12 hours per nephrology [place] contraindicated secondary to liver dysfunction Sodium trending up, continue to monitor BMP = 01/02. Follow-up sodium level. //SLE nephritis? On empiric steroids IV Solu-Medrol 60 mg every 8 hours, CellCept 500 mg twice daily Patient is declining renal biopsy Appreciate input from nephrology = 01/02. Follow-up nephrology recommendations. Appreciate assistance. //Elevated troponin 2 D Echo with EF60-65%. Coronary CTA 12/28/17 with trace pericardial effusion otherwise unremarkable Now on 81 mg p.o. daily. Does not have ACS symptoms Appreciate input from cardiology; signed off //Increased oxygen requirement. 01/02. Patient on 2 L nasal cannula. Crackles on exam. Will check chest x- ray, BNP. //Hypokalemia Give potassium 60 mEq x1 now and monitor electrodes = 01/02. Follow-up repeat labs. //SLE - pancytopenia, proteinuria ?carditis - may be secondary to lupus flare. on empiric steroids IV Solu-Medrol 60 mg every 8 hours, CellCept 500 mg twice daily Normal CRP, mildly elevated ESR Continue with aspirin 81 mg daily 24-hour urine collection report noted = 01/02. Follow-up nephrology recommendations. //Hypertension Currently on Norvasc 5 mg daily PT to treat and eval PROPH: SCD for DVT prophylaxis. Lovenox 40 mg subcu daily, monitor and discontinue if platelet count less than 50. Protonix 40 mg p.o. daily Discussed Condition With: Patient, son at bedside. Discharge Planning: PT recommends home with home health. -Chest x-ray pending due to oxygen requirement We will need nephrology clearance
--- NOTE | 2018-01-02 08:57 | P.DCO ---
- Diagnosis (1) Hyponatremia Status: Chronic (2) Diarrhea Status: Acute (3) Pancytopenia Status: Acute - Physical Therapy Order: Evaluate and treat - Home Health Nursing Order: Medical education, Oxygen administration education, Nursing assessment with vital signs Instructions: Home health nurse for medication management. - Medical Sales Representative Order: To provide: Long range planning - Case Management Consult Yes - Certification I have seen patient Mohini Davila on 01/02/18. My clinical findings support the need for the requested home health care services because: Limited ability to care for self I certify that my clinical findings support that this patient is homebound because: Unable to use public transportation
[2018-01-02] MEDS: amLODIPine 5 MG Tablet PO SCH (09:10)
[2018-01-02] MEDS: Furosemide 20 MG Tablet PO SCH (09:10)
[2018-01-02] MEDS: MethylPREDNISolone Sod Succinate Inj 125 MG/2 ML Vial IV.PUSH SCH ×2 (09:11→20:45)
--- NOTE | 2018-01-02 10:06 | XR ---
EXAM DATE: 01/02/2018 9:55 AM EST AGE/SEX: 67 years / Female INDICATIONS: Shortness of breath. CLINICAL DATA: This is the patient's initial encounter. Patient reports that signs and symptoms have been present for 1 day and indicates a pain score of 0/10. MEDICAL/SURGICAL HISTORY: . Lupus. Alopecia. None. [place] [facility] [place]26/2017. . FINDINGS: The heart is mildly enlarged. There are bilateral effusions and chronic interstitial changes most con sistent with congestive failure. This has significantly worsened compared to previous dated 12/26/2017 . The visualized bony structures are grossly intact. CONCLUSION: Cardiomegaly and bilateral effusions most consistent with congestive failure. Electronically signed by: Lane Bay MD 01/02/2018 10:04 AM EST
[2018-01-02 10:28] LABS: Albumin 3.5 g/dL (3.4-5.0); Anion Gap 12 meq/L (5-15); Aspartate Aminotransferase 45 U/L (15-37); Blood Urea Nitrogen 13 mg/dL (7-18); Calcium 7.7 mg/dL (8.5-10.1); Carbon Dioxide 19.7 meq/L (21.0-32.0); Chloride 93 meq/L (98-107); Glomerular Filtration Rate Greater Than 89 mL/min (>89); Glucose,Random 147 mg/dL (74-106); Sodium 125 meq/L (136-145)
[2018-01-02 10:30] LABS: Alanine Aminotransferase 51 U/L (10-53)
[2018-01-02 10:31] LABS: Alkaline Phosphatase 32 U/L (45-117); Total Protein 5.8 g/dL (6.4-8.2)
--- NOTE | 2018-01-02 17:27 | P.PNNP ---
Subjective Interval history: Patient is feeling much better states I want to go home refused kidney biopsy Physical Exam Vital signs: Vital Signs 01/01/18 19:45 01/01/18 20:00 01/01/18 22:51 Temperature 97.9 F 97.8 F Pulse Rate 102 H 90 105 H Respiratory Rate 20 16 Blood Pressure 143/82 H 158/81 H Pulse Oximetry 92 L 92 L 01/02/18 00:00 01/02/18 01:05 01/02/18 04:00 Temperature 98.2 F Pulse Rate 69 118 H 122 H Respiratory Rate 18 18 Blood Pressure 166/96 H Pulse Oximetry 92 L 01/02/18 08:00 01/02/18 11:54 01/02/18 12:00 Temperature 97.7 F 97.8 F Pulse Rate 68 116 H Respiratory Rate 20 20 Blood Pressure 152/85 H 194/107 H Pulse Oximetry 96 100 95 01/02/18 16:00 Temperature Pulse Rate 100 H Respiratory Rate Blood Pressure Pulse Oximetry Intake & Output 01/01/18 01/02/18 01/02/18 18:59 06:59 18:59 Intake Total 680 / 680 210 / 210 200 / 200 Output Total 600 / 600 2475 / 2475 Balance 80 / 80 -2265 / -2265 200 / 200 Intake: IV 200 / 200 210 / 210 200 / 200 Flexbumin 25% Inj 100 ML @ 60 100 / 100 100 / 100 100 / 100 mls/hr IV.SIG Q12H JONAS Rx#: [id number] Maxipime Inj 2,000 MG In NS Inj 100 / 100 110 / 110 100 / 100 100 ML @ 200 mls/hr IV.SIG Q12H JONAS Rx#:[id number] Oral 480 / 480 Output: Urine 600 / 600 2475 / 2475 Other: Date of Last Bowel Movement 12/31/17 01/01/18 01/01/18 Narrative: GENERAL: Patient sitting up in bed. Appears comfortable. SKIN: Warm and dry. HEAD: Normocephalic. EYES: No scleral icterus. No injection or drainage. NECK: Supple, trachea midline. No JVD. CARDIOVASCULAR: Regular rate and rhythm without murmurs, gallops, or rubs. RESPIRATORY: Breath sounds equal bilaterally. Crackles bilateral bases. No accessory muscle use. GASTROINTESTINAL: Abdomen soft, non-tender, nondistended. MUSCULOSKELETAL: No cyanosis,. +1 bilateral lower extremity edema BACK: Nontender without obvious deformity. No CVA tenderness. Assessment and Plan - Assessment (1) Hyponatremia Code(s): E87.1 - Hypo-osmolality and hyponatremia Status: Chronic (2) Diarrhea Code(s): R19.7 - Diarrhea, unspecified Status: Acute (3) Proteinuria Code(s): R80.9 - Proteinuria, unspecified Status: Acute (4) Pancytopenia Code(s): D61.818 - Other pancytopenia Status: Acute - Plan Patient has significant protein loss 2.7 g/day Patient has volume overload CT scan showed pleural effusions Possible lupus nephritis - patient is on steroids and CellCept was started empirically Renal biopsy may be a consideration Her hyponatremia is due to multifactorial reasons: liver dysfunction, nephrotic syndrome, SLE all contributing Na 113 at time of admission Na 125 now- started PO lasix 20mg daily Tuesday. Given bumex 1mg x1 given with albumin infusion yesterday for further diuresis to help hypervolemic hyponatremia. Good response with 1.8 L UOP. Will repeat bumex 1mg IV x 1 today. Tolvaptan would be ideal - however, will hold given elevated LFTs and apparent liver dysfunction. Kidney biopsy could be considered patient refused kidney biopsy Discussed follow-up as outpatient Follow electrolytes -on potassium replacement Patient can be discharged and follow-up as outpatient
[2018-01-02] MEDS: Enoxaparin Inj 40 MG/0.4 ML Syringe SQ SCH (20:47)
[2018-01-02] MEDS: Zolpidem Tartrate 5 MG Tablet PO PRN (23:27)
[2018-01-02 23:53] LABS: IgA Serum 423 mg/dL (81-463); Tissue Transglutaminase Ab IgG ND U/mL (())
[2018-01-03] MEDS: metroNIDAZOLE 500 MG Tablet PO SCH ×2 (05:09→13:07)
[2018-01-03 07:00] LABS: Blood Urea Nitrogen 14 mg/dL (7-18); Calcium 7.4 mg/dL (8.5-10.1); Carbon Dioxide 21.7 meq/L (21.0-32.0); Chloride 91 meq/L (98-107); Glomerular Filtration Rate Greater Than 89 mL/min (>89); Glucose,Random 129 mg/dL (74-106); Potassium 3.7 meq/L (3.5-5.1)
[2018-01-03 07:24] LABS: Anion Gap 10 meq/L (5-15); Calcium-Albumin Corrected 8.1 mg/dL (8.5-10.1); Total Protein 5.9 g/dL (6.4-8.2)
[2018-01-03 08:15] LABS: Sodium 123 meq/L (136-145)
[2018-01-03] MEDS: amLODIPine 5 MG Tablet PO SCH (08:49)
[2018-01-03] MEDS: Furosemide 20 MG Tablet PO SCH (08:49)
[2018-01-03] MEDS: MethylPREDNISolone Sod Succinate Inj 125 MG/2 ML Vial IV.PUSH SCH (08:50)
[2018-01-03 09:04] VITALS: RESP 16
[2018-01-03] MEDS ORDERED: Magnesium Oxide 400 MG Tablet PO SCH (12:15)
[2018-01-03 14:00] VITALS: BP 166/94; PULSE 90; TEMP 98.2; O2SAT 98
--- NOTE | 2018-01-03 14:01 | P.PNIM ---
Subjective Interval history: Patient says she is feeling well. Diarrhea is resolved. Denies any chest pain or shortness of breath. Says she would like to leave the hospital I discussed with patient's primary care over the phone. Primary care says she will follow patient very closely as outpatient, feels she is probably okay to go home.. Physical Exam Vital signs: Vital Signs 01/02/18 16:00 01/02/18 19:43 01/02/18 20:00 Temperature 97.7 F 98 F Pulse Rate 107 H 120 H Respiratory Rate 20 20 Blood Pressure 177/86 H 163/83 H Pulse Oximetry 94 L 97 98 01/03/18 00:00 01/03/18 04:00 01/03/18 08:00 Temperature 98.2 F 98.6 F 98.3 F Pulse Rate 78 73 103 H Respiratory Rate 16 18 16 Blood Pressure 175/87 H 171/97 H 142/84 H Pulse Oximetry 98 96 97 01/03/18 10:52 01/03/18 12:00 Temperature Pulse Rate 102 H Respiratory Rate Blood Pressure Pulse Oximetry 97 Intake & Output 01/02/18 01/03/18 01/03/18 18:59 06:59 18:59 Intake Total 920 / 920 100 / 100 Balance 920 / 920 100 / 100 Weight 60 kg Intake: IV 200 / 200 100 / 100 Flexbumin 25% Inj 100 ML @ 60 100 / 100 mls/hr IV.SIG Q12H JONAS Rx#: [id number] Maxipime Inj 2,000 MG In NS Inj 100 / 100 100 / 100 100 ML @ 200 mls/hr IV.SIG Q12H JONAS Rx#:[id number] Oral 720 / 720 Other: # Voids 4 2 Date of Last Bowel Movement 01/01/18 01/03/18 01/03/18 # Bowel Movements 2 2 Narrative: GENERAL: Patient sitting up in recliner. Appears comfortable. SKIN: Warm and dry. HEAD: Normocephalic. EYES: No scleral icterus. No injection or drainage. NECK: Supple, trachea midline. No JVD or lymphadenopathy. CARDIOVASCULAR: Regular rate and rhythm without murmurs, gallops, or rubs. RESPIRATORY: Breath sounds clear today. Yesterday with crackles.. No accessory muscle use. GASTROINTESTINAL: Abdomen soft, non-tender, nondistended. MUSCULOSKELETAL: No cyanosis. trace peripheral edema BACK: Nontender without obvious deformity. No CVA tenderness. Results - Labs CBC & Chem 7: 01/01/18 04:43 01/03/18 05:03 Laboratory Results - last 24 hr 12/29/17 01/03/18 01/03/18 13:27 05:03 05:03 Sodium 123 L* Potassium 3.7 Chloride 91 L Carbon Dioxide 21.7 Anion Gap 10 BUN 14 Creatinine 0.57 Estimated GFR Greater than 89 Random Glucose 129 H Calcium 7.4 L* Prot Corrected Calcium 8.1 L Magnesium 1.7 Total Protein 5.9 L IgA 423 Tiss Transglutamin IgG ND Assessment and Plan - Assessment (1) Hyponatremia Code(s): E87.1 - Hypo-osmolality and hyponatremia Status: Chronic (2) Diarrhea Code(s): R19.7 - Diarrhea, unspecified Status: Acute (3) Pancytopenia Code(s): D61.818 - Other pancytopenia Status: Acute - Plan 67-year-old female with //Diarrhea-improving Pt reports 2 weeks of diarrhea prior to admission. CT abd/pelvis - nonspecific edema and small ascites, seen previously. Patient has refused colonoscopy/EGD stool C diff, Stool O and P, stool enteric pathogen ,Cryptosporidium Giardia and C. difficile all negative Currently on empiric coverage with Flagyl 500 mg p.o. daily 8-hour and s/p cefepime. Continue with Flagyl times 10-14 days total Vascular surgery was consulted and case was discussed with Dr. Verde CTA abdomen/pelvis negative; unlikely chronic mesenteric ischemia NM Hepatobiliary /HIDA scan negative Patient to follow outpatient with GI for panendoscopy = 01/03. Patient reports diarrhea appears to have resolved. Continue Flagyl to complete treatment course as above. //Hyponatremia of hypervolemia Multifactorial, liver dysfunction, nephrotic syndrome, SLE Status post IV Bumex x1 (12/31) currently on IV albumin (12/31) every 12 hours per nephrology [place] contraindicated secondary to liver dysfunction Sodium trending up, continue to monitor BMP = 01/02. Follow-up sodium level. = 01/03. Sodium down to 123. Hyponatremia likely secondary to diastolic dysfunction. Will increase amlodipine dosage. Discussed with primary care. Patient able to follow-up very closely with primary care, next day. Appreciate primary care assistance. Follow-up with primary care as outpatient. //SLE nephritis? On empiric steroids IV Solu-Medrol 60 mg every 8 hours, CellCept 500 mg twice daily Patient is declining renal biopsy Appreciate input from nephrology = 01/03. Patient refused biopsy. Continue CellCept as per nephrology. Follow- up with nephrology as outpatient. //Elevated troponin 2 D Echo with EF60-65%. Coronary CTA 12/28/17 with trace pericardial effusion otherwise unremarkable Now on 81 mg p.o. daily. Does not have ACS symptoms Appreciate input from cardiology; signed off //Increased oxygen requirement. 01/02. Patient on 2 L nasal cannula. Crackles on exam. Will check chest x- ray, BNP. //Hypokalemia Give potassium 60 mEq x1 now and monitor electrodes = 01/02. Follow-up repeat labs. //SLE - pancytopenia, proteinuria ?carditis - may be secondary to lupus flare. on empiric steroids IV Solu-Medrol 60 mg every 8 hours, CellCept 500 mg twice daily Normal CRP, mildly elevated ESR Continue with aspirin 81 mg daily 24-hour urine collection report noted = 01/02. Follow-up nephrology recommendations. //Hypertension Currently on Norvasc 5 mg daily. Will increase due to suspected diastolic dysfunction. PT to treat and eval PROPH: SCD for DVT prophylaxis. Lovenox 40 mg subcu daily, monitor and discontinue if platelet count less than 50. Protonix 40 mg p.o. daily Discharge Planning: Discharge home with home health. Patient will need repeat chest x-ray as outpatient We will need to follow with primary care. Appreciate primary care assistance.
--- NOTE | 2018-01-03 14:37 | P.DS ---
Date of admission: 12/24/17 19:26 Primary care physician: Smita Gaviria DO Brief History from admission: 67-year-old female with a past medical history of systemic lupus erythematosus who is not on any related medications. She states she was diagnosed in 2018 and is followed by Dr. Gaviria and Dr. Lu. She states that about 2 weeks ago she developed sore throat, nausea, anorexia, lethargy, and myalgias. She had vomiting NBNB earlier this week. Over the last 2 weeks she has had numerous diarrhea stools, liquid brown up to ten times per day, worse over the last 10 days. She has abdominal discomfort.. She has had chills, hasn' t checked her temperature. Today she had some cough productive of yellow/white sputum. No recent hospitalizations or antibiotic exposure. No travel, camping, drinking non-potable water. Her workup revealed sodium of 113,normal creatinine , pancytopenia. Denies h/o hyponatremia or cytopenias. She states she had routine lab work in october that was completely normal. Denies CP, SOB, FRIED. She received 2 L NS bolus in the ED as she reportedly looked very dry on arrival. She says malar rash has been present several months, denies joint pain or swelling. DS: Diagnosis - Discharge Diagnosis (1) Hyponatremia Status: Chronic (2) Diarrhea Status: Acute (3) Pancytopenia Status: Acute DS: Medications - Discharge Medications Prescriptions: amlodipine [Norvasc] 10 mg PO DAILY 30 Days #60 tab aspirin 81 mg PO DAILY 30 Days #30 tab clonidine HCl 0.1 mg PO BID 30 Days #60 tab furosemide 20 mg PO DAILY 30 Days #30 tab Lactobacillus acidoph-L.bulgar [Floranex] 1 gm PO TID 30 Days each magnesium oxide 400 mg PO DAILY 30 Days #30 tab metronidazole 500 mg PO Q8HR 6 Days tab mycophenolate mofetil [CellCept] 500 mg PO BID@0600,1800 30 Days tab potassium chloride [Klor-Con 8] 16 meq PO BID 30 Days #120 tab prednisone 10 mg PO DAILY #10 tab DS: Summary Hospital Course: Patient presented with hyponatremia with sodium 113. This improved with IV fluids and subsequently fluid restriction. 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 She was started on CellCept empirically, as well as prednisone taper, and will need to follow-up with nephrology as outpatient. BNP up to 1500, however echocardiogram with preserved ejection fraction. Bilateral small pleural effusions likely secondary to fluid overload. Afterload reduction will be important in controlling patient's condition. Sodium improved to 123, patient and patient's physician requested patient be discharged to follow-up as outpatient. Patient was started on Flagyl for diarrhea with improvement, however refused EGD and colonoscopy. Continue on Flagyl to complete treatment course. For problem based summary from most recent progress note, please see below. 67-year-old female with //Diarrhea-improving Pt reports 2 weeks of diarrhea prior to admission. CT abd/pelvis - nonspecific edema and small ascites, seen previously. Patient has refused colonoscopy/EGD stool C diff, Stool O and P, stool enteric pathogen ,Cryptosporidium Giardia and C. difficile all negative Currently on empiric coverage with Flagyl 500 mg p.o. daily 8-hour and s/p cefepime. Continue with Flagyl times 10-14 days total Vascular surgery was consulted and case was discussed with Dr. Verde CTA abdomen/pelvis negative; unlikely chronic mesenteric ischemia NM Hepatobiliary /HIDA scan negative Patient to follow outpatient with GI for panendoscopy = 01/03. Patient reports diarrhea appears to have resolved. Continue Flagyl to complete treatment course as above. //Hyponatremia of hypervolemia Multifactorial, liver dysfunction, nephrotic syndrome, SLE Status post IV Bumex x1 (12/31) currently on IV albumin (12/31) every 12 hours per nephrology Samsca contraindicated secondary to liver dysfunction Sodium trending up, continue to monitor BMP = 01/02. Follow-up sodium level. = 01/03. Sodium down to 123. Hyponatremia likely secondary to diastolic dysfunction. Will increase amlodipine dosage. Discussed with primary care. Patient able to follow-up very closely with primary care, next day. Appreciate primary care assistance. Follow-up with primary care as outpatient. //SLE nephritis? On empiric steroids IV Solu-Medrol 60 mg every 8 hours, CellCept 500 mg twice daily Patient is declining renal biopsy Appreciate input from nephrology = 01/03. Patient refused biopsy. Continue CellCept as per nephrology. Follow- up with nephrology as outpatient. //Elevated troponin 2 D Echo with EF60-65%. Coronary CTA 12/28/17 with trace pericardial effusion otherwise unremarkable Now on 81 mg p.o. daily. Does not have ACS symptoms Appreciate input from cardiology; signed off //Increased oxygen requirement. 01/02. Patient on 2 L nasal cannula. Crackles on exam. Will check chest x- ray, BNP. //Hypokalemia Give potassium 60 mEq x1 now and monitor electrodes = 01/02. Follow-up repeat labs. //SLE - pancytopenia, proteinuria ?carditis - may be secondary to lupus flare. on empiric steroids IV Solu-Medrol 60 mg every 8 hours, CellCept 500 mg twice daily Normal CRP, mildly elevated ESR Continue with aspirin 81 mg daily 24-hour urine collection report noted = 01/02. Follow-up nephrology recommendations. //Hypertension Currently on Norvasc 5 mg daily. Will increase due to suspected diastolic dysfunction. PT to treat and eval PROPH: SCD for DVT prophylaxis. Lovenox 40 mg subcu daily, monitor and discontinue if platelet count less than 50. Protonix 40 mg p.o. daily Discharge Planning: Discharge home with home health. Patient will need repeat chest x-ray as outpatient We will need to follow with primary care. Appreciate primary care assistance. - Time Spent with Patient Total time spent providing and/or coordinating discharge services: Greater than 30 minutes - Quality: VTE Deep Vein Thrombosis/Pulmonary Embolism Present on Admission: No Exam Vital signs: Vital Signs 01/02/18 16:00 01/02/18 19:43 01/02/18 20:00 Temperature 97.7 F 98 F Pulse Rate 107 H 120 H Respiratory Rate 20 20 Blood Pressure 177/86 H 163/83 H Pulse Oximetry 94 L 97 98 01/03/18 00:00 01/03/18 04:00 01/03/18 08:00 Temperature 98.2 F 98.6 F 98.3 F Pulse Rate 78 73 103 H Respiratory Rate 16 18 16 Blood Pressure 175/87 H 171/97 H 142/84 H Pulse Oximetry 98 96 97 01/03/18 10:52 01/03/18 12:00 Temperature 98.2 F Pulse Rate 90 Respiratory Rate 16 Blood Pressure 166/94 H Pulse Oximetry 97 98 Intake & Output 01/02/18 01/03/18 01/03/18 18:59 06:59 18:59 Intake Total 920 / 920 100 / 100 100 / 100 Balance 920 / 920 100 / 100 100 / 100 Weight 60 kg Intake: IV 200 / 200 100 / 100 100 / 100 Flexbumin 25% Inj 100 ML @ 60 100 / 100 mls/hr IV.SIG Q12H JONAS Rx#: [id number] Maxipime Inj 2,000 MG In NS Inj 100 / 100 100 / 100 100 / 100 100 ML @ 200 mls/hr IV.SIG Q12H JONAS Rx#:[id number] Oral 720 / 720 Other: # Voids 4 2 Date of Last Bowel Movement 01/01/18 01/03/18 01/03/18 # Bowel Movements 2 2 Results Procedures completed during hospitalization: No invasive procedures Labs on day of discharge: Labs from last 24 hours 01/03/18 01/03/18 12/29/17 05:03 05:03 13:27 Sodium 123 L* Potassium 3.7 Chloride 91 L Carbon Dioxide 21.7 Anion Gap 10 BUN 14 Creatinine 0.57 Estimated GFR Greater than 89 Random Glucose 129 H Calcium 7.4 L* Prot Corrected Calcium 8.1 L Magnesium 1.7 Total Protein 5.9 L IgA 423 Tiss Transglutamin IgG ND - Impressions ITS Impressions Abdomen/Pelvis CT 12/24/17 16:21 CONCLUSION: 1. Nonspecific edema and small ascites. Nothing organized or drainable. Similar findings were seen previously. 2. No focal inflammatory changes are demonstrated. No obstruction. 3. Mild thickening of the interlobular septa of both lung bases suggesting mild pulmonary edema. Heart is enlarged. No pleural effusion. Previously seen pericardial effusion is no longer present. Abdomen Ultrasound 12/28/17 00:00 CONCLUSION: 1. 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 Abdominal CT angiography is pending. 2. Mild celiac artery stenosis. Coronary Angiography CT 12/28/17 00:00 CONCLUSION: 1. No calcified coronary artery plaque or hemodynamically significant coronary artery stenosis. 2. Small to moderate bilateral pleural effusions with associated airspace consolidation in the lower lobes. 3. Trace pericardial effusion. 4. Trace ascites. Abdomen/Pelvis CTA 12/30/17 00:00 CONCLUSION: 1. No aortic aneurysm or hemodynamically significant stenosis with patent iliac arteries bilaterally. 2. The visceral arteries appear patent without significant flow-limiting stenosis. 3. Portal vein and very central mesenteric veins are patent. 4. Moderate bilateral pleural effusions with associated likely compressive atelectasis in the lower lobes. 5. Diffuse anasarca and small amount of ascites with fluid primarily along the margins of the liver. 6. Nonspecific circumferential wall thickening involving several loops of small bowel. Although nonspecific this may be related to patient's ascites/ hypoalbuminemia. Bile Acid Absorption NM 12/31/17 00:00 CONCLUSION: 1. Negative examination. Chest X-Ray 01/02/18 00:00 CONCLUSION: Cardiomegaly and bilateral effusions most consistent with congestive failure. Discharge Plan - Discharge Disposition Patient Disposition: /[facility] - Discharge Condition Condition: Stable - Discharge Order Discharge Orders: Discharge Order (Routine); Ordered 01/03/18 Ordered By: Simon Fabian Nephrology Clear for Discharge (Routine); Ordered 01/02/18 Ordered By: Adela Metcalf - Discharge Details Anticipated Discharge Date: 01/03/18 - Physicians Team Primary Care Provider: Smita Gaviria Attending Provider: Simon Fabian Other Providers: Moira White MD ; Kush Ahmadi MD ; Stefani Moreno MD ; Adela Metcalf MD ; Cliff Verde MD
[2018-01-03 19:31] LABS: Alpha 1 Antitrypsin 121 mg/dL (100 - 190); Smooth Muscle Total Auto Abs Negative (Negative)
[2018-01-04 17:51] LABS: Ceruloplasmin 18 mg/dL (18-53)
== END 2018-01-03 15:46 | disposition home health service (06) ==
LOC: NEPE 16:05 → NEDA 19:26 → N03 21:20 → N04 12-28 19:27
PROVIDERS: ADMIT Internal Medicine; ATTEND Internal Medicine